=== PATIENT | female | born 1955 | race Caucasian/White ===

== ENCOUNTER 2020-09-03 12:49 | Emergency (ER) | payer MEDICARE, OTHER, SELFPAY ==
[2020-09-03] VITALS (12 sets, daily range): BP systolic 136–178; BP diastolic 61–81; PULSE 50–59; RESP 14–32; TEMP 36.5; O2SAT 96–100
--- NOTE | 2020-09-03 13:09 | DI.CT.S_ITS ---
PROCEDURE: CT HEAD/BRAIN WO CON INDICATIONS: dizziness w/o trauma or h/o vertigo TECHNIQUE: Noncontrast 4.5 mm thick angled axial sections acquired from the foramen magnum to the vertex, with coronal and sagittal reformats. For radiation dose reduction, the following was used: automated exposure control, adjustment of mA and/or kV according to patient size. COMPARISON: None. FINDINGS: Image quality: Excellent. CSF spaces: Basal cisterns are patent. No extra-axial fluid collections. The ventricles are symmetric in size and shape. Brain: No intracranial bleeds or masses. There is cerebral volume loss for age, with resultant ventricular and sulcal prominence. There are periventricular and deep white matter chronic small vessel ischemic changes. There is intracranial internal carotid artery atherosclerosis. Skull and face: Calvarium and visualized facial bones appear intact, without suspicious lesions. Sinuses: Visualized sinuses and mastoids are clear. IMPRESSION: Unremarkable CT head. No intracranial hemorrhage or mass effect. Dictated by: William Stewart M.D. on 09/03/2020 at 12:36 Approved by: William Stewart M.D. on 09/03/2020 at 12:45
[2020-09-03] MEDS: SODIUM CHLORIDE 0.9% 1,000 ML 150 ML IV (13:30)
[2020-09-03 13:37] LABS: Add Manual Diff / Slide Review NO; Basophils Absolute Auto 0 /uL (0-100); Basophils Percent Auto 0.6 % (0-2); Eosinophils Absolute Auto 100 /uL (0-450); Hematocrit 42.4 % (36-46); Hemoglobin 14.4 g/dL (12.0-16.0); Lymphocytes Absolute Auto 1800 /uL (1100-4500); Lymphocytes Percent Auto 27.8 % (25-40); Mean Corpuscular HGB Conc 33.9 % (30-36); Mean Corpuscular Hemoglobin 32.1 PG (26-34); Mean Corpuscular Volume 94.5 fL (80-100); Monocytes Absolute Auto 500 /uL (0-900); Monocytes Percent Auto 7.1 % (3-14); Neutrophils Absolute Auto 4100 /uL (1500-7000); Neutrophils Percent Auto 63.5 % (50-75); Platelet Count 244 X10^3/uL (150-400); Red Blood Cell Count 4.48 X10^6/uL (4.0-5.2); Red Cell Distribution Width 13.2 % (11.6-14.8); White Blood Cell Count 6.5 X10^3/uL (4.5-11.0)
[2020-09-03 13:50] LABS: Alanine Aminotransferase 27 IU/L (<35); Albumin 4.2 g/dL (3.5-5.0); Albumin Globulin Ratio 1.2 (1.0-2.8); Alkaline Phosphatase 97 U/L (38-126); Aspartate Aminotransferase 35 IU/L (14-36); Bilirubin Total 0.4 mg/dL (0.2-1.3); Blood Urea Nitrogen 16 mg/dL (7-17); Calcium 9.4 mg/dL (8.4-10.2); Carbon Dioxide 25 mmol/L (22-32); Chloride 106 mmol/L (98-107); Estimated Glomerular Filt Rate > 60.0 mL/min (>60); Globulin 3.4 g/dL (1.7-4.1); Glucose 133 mg/dL (80-110); HEMOLYSIS < 15 (0-50); Potassium 3.8 mmol/L (3.4-5.1); Sodium 138 mmol/L (137-145); Total Protein 7.6 g/dL (6.3-8.2)
[2020-09-03 14:01] LABS: Troponin I < 0.012 ng/mL (0.01-0.034)
[2020-09-03] MEDS: ONDANSETRON 4 MG/2 ML INJ IV (14:08)
[2020-09-03] MEDS: MECLIZINE HCL 12.5 MG TABLET 25 MG PO (15:30)
[2020-09-03] MEDS: KETOROLAC 30 MG/ML VIAL 15 MG IV (15:30)
--- NOTE | 2020-09-03 15:50 | ED_ITS ---
HPI - Dizziness General Chief Complaint: Dizziness Stated Complaint: really severe vertigo, nausea, back spasms Time Seen by Provider: 09/03/20 15:46 Source: patient Mode of arrival: Wheelchair Limitations: no limitations History of Present Illness HPI Narrative: This is a pleasant 65-year-old female who comes in with complaint of acute vertigo. Patient states she was sitting at her desk when she had a sudden onset of the room spinning, patient did have a headache but began having nausea and vomiting. She was able to get herself to the bathroom received consisted to have significant symptoms. Patient states that any sort of movement made it significantly worse. It has been slowly starting to decrease present but not nearly as intense. She denies any difficulty with speech, she denies any numbness, tingling or weakness of her extremities. She had had full movement and entire time. She denies any chest pain or pressure. While she was vomiting she started have spasm and pain in her lower back. This has also been improving. Patient does not have any loss of bowel or bladder control. She has had one prior episode in the past remotely. Patient states she does not take any medications regularly. Patient denies any allergies to medications Related Data Previous Rx's Medication Instructions Recorded meclizine 25 mg tablet 25 mg PO TID PRN #20 tab 09/03/20 ondansetron HCl 4 mg tablet 4 mg PO Q6H PRN #10 tab 09/03/20 (Zofran) Allergies Allergy/AdvReac Type Severity Reaction Status Date / Time No Known Drug Allergies Allergy Verified 09/03/20 14:30 Review of Systems Review of Systems ROS Unobtainable: All systems reviewed & are unremarkable except as noted in HPI and below Exam Narrative Exam Narrative: GEN: well nourished, well appearing female, alert and oriented x 3, patient appears to be in mild distress. HEENT: Atraumatic, pupils are equal round reactive to light, extraocular movements are intact, negative York[place]-Hallpike, no nystagmus appreciated, nares are clear, TMs are clear with no fluid, there is no conjunctival pallor. Throat is clear without any exudates, erythema, tonsillar enlargement or uvular deviation, no facial droop HEART: Regular rate and rhythm without murmur, clicks, rubs. LUNGS:Lungs clear to auscultation, no wheezes, rales, crackles, chest moves symmetrically ABD:bowel sounds normal, soft, non-tender, no guarding, rebound, rigidity, no masses noted, no hepatosplenomegaly MSCL: Non-tender, no muscle atrophy, muscles strength 5/5 upper and lower extremities, full range of motion, normal gait NEURO:CN 2-12 intact, sensation normal, reflexes 2/4 upper and lower extremitie s. finger nose finger test normal, heel thomas test normal SKIN: No rash or other skin changes. Initial Vital Signs Initial Vital Signs: Vital Signs Pulse Rate 57 L 09/03/20 13:19 Respiratory Rate 14 09/03/20 13:19 Pulse Oximetry 97 09/03/20 13:19 Scores NIH Stroke Scale Level of Conciousness: Alert, keenly responsive Ask month/age: Answers both questions correctly. Open/close eyes, close hand: Performs both tasks correctly Best gaze horizontal: Normal Visual trejo: No visual loss Facial palsy: Normal symetrical movement Left arm drift: No drift for full 10 sec Right arm drift: No drift for full 10 sec Left leg drift: No drift for full 5 sec Right leg drift: No drift for full 5 sec Limb ataxia: Absent Sensory on face/arms/legs: Normal, no sensory loss Best language: No aphasia, normal Dysarthria: Normal Extinction or inattention: No abnormality Total NIH Stroke scale score: 0 Course Orders Ordered: ED Orders 09/03/20 13:08 EKG-12 Lead Stat 09/03/20 13:09 CT head/brain wo con Stat 09/03/20 13:20 Complete Blood Count AUTO DIFF Stat Comprehensive Metabolic Panel Stat Troponin I Stat 09/03/20 14:33 EKG-12 Lead Stat Discontinued Medications Sodium Chloride (Normal Saline 0.9%) 1,000 mls @ 150 mls/hr IV CONT RAFIA Last Infusion: 09/03/20 16:25 Dose: 0 mls/hr Documented by: Admin: 09/03/20 13:30 Dose: 150 mls/hr Documented by: CHANO Ketorolac Tromethamine (Ketorolac 30 Mg/Ml Vial) 15 mg IV NOW ONE Stop: 09/03/20 15:15 Last Admin: 09/03/20 15:30 Dose: 15 mg Documented by: CHANO Meclizine HCl (Meclizine Hcl 12.5 Mg Tablet) 25 mg PO NOW ONE Stop: 09/03/20 15:26 Last Admin: 09/03/20 15:30 Dose: 25 mg Documented by: CHANO Ondansetron HCl (Ondansetron 4 Mg/2 Ml Inj) 4 mg IV NOW ONE Stop: 09/03/20 14:08 Last Admin: 09/03/20 14:08 Dose: 4 mg Documented by: CHANO Vital Signs Vital signs: Vital Signs - 8 hr 09/03/20 13:19 09/03/20 13:20 09/03/20 13:45 Temperature 97.7 F Pulse Rate 57 L 57 L 57 L Respiratory Rate 14 32 H Blood Pressure 178/81 H Pulse Oximetry 97 97 97 09/03/20 14:00 09/03/20 14:29 09/03/20 14:30 Temperature Pulse Rate 50 L 55 L 53 L Respiratory Rate 20 24 19 Blood Pressure 140/65 136/62 Pulse Oximetry 97 96 98 09/03/20 15:00 09/03/20 15:01 09/03/20 15:30 Temperature Pulse Rate 59 L 57 L 54 L Respiratory Rate 27 H 24 18 Blood Pressure 138/61 Pulse Oximetry 96 97 100 09/03/20 15:34 09/03/20 16:00 09/03/20 16:01 Temperature Pulse Rate 50 L 51 L 50 L Respiratory Rate 26 H 16 16 Blood Pressure 152/72 H 137/63 Pulse Oximetry 98 99 100 MDM - Dizziness Lab Data Result diagrams: 09/03/20 13:20 09/03/20 13:20 Labs: Lab Results 09/03/20 09/03/20 Range/Units 13:20 13:20 WBC 6.5 (4.5-11.0) X10^3/uL RBC 4.48 (4.0-5.2) X10^6/uL Hgb 14.4 (12.0-16.0) g/dL Hct 42.4 (36-46) % MCV 94.5 (80-100) fL MCH 32.1 (26-34) PG MCHC 33.9 (30-36) % RDW 13.2 (11.6-14.8) % Plt Count 244 (150-400) X10^3/uL Neut % (Auto) 63.5 (50-75) % Lymph % (Auto) 27.8 (25-40) % [place] % (Auto) 7.1 (3-14) % Eos % (Auto) 1.0 L (2-4) % Baso % (Auto) 0.6 (0-2) % Neut # (Auto) 4100 (9640-5287) /uL Lymph # (Auto) 1800 (5008-5538) /uL [place] # (Auto) 500 (0-900) /uL Eos # (Auto) 100 (0-450) /uL Baso # (Auto) 0 (0-100) /uL Sodium 138 (137-145) mmol/L Potassium 3.8 (3.4-5.1) mmol/L Chloride 106 (98-107) mmol/L Carbon Dioxide 25 (22-32) mmol/L BUN 16 (7-17) mg/dL Creatinine 0.64 (0.52-1.04) mg/dL Estimated GFR > 60.0 (>60) mL/min BUN/Creatinine Ratio 25.0 H (6-22) Glucose 133 H (80-110) mg/dL Calcium 9.4 (8.4-10.2) mg/dL Total Bilirubin 0.4 (0.2-1.3) mg/dL AST 35 (14-36) IU/L ALT 27 (<35) IU/L Alkaline Phosphatase 97 (38-126) U/L Troponin I < 0.012 (0.01-0.034) ng/mL Total Protein 7.6 (6.3-8.2) g/dL Albumin 4.2 (3.5-5.0) g/dL Globulin 3.4 (1.7-4.1) g/dL Albumin/Globulin Ratio 1.2 (1.0-2.8) Urine Dip Bedside Urine Glucose Negative Bedside Urine Bilirubin - Negative Bedside Urine Ketone +/- 5 Urine Specific [place] 1.015 Bedside Urine Occult Blood - Negative Bedside Urine pH 7.5 Bedside Urine Protein - Negative Bedside Urine Urobilinogen - Negative Bedside Urine Nitrite - Negative Bedside Urine Leukocytes - Negative Esterase Imaging Data CT scan - head: Radiologist's Impression: [address] [id number] Scan ReportSigned Patient: Felicia Lacy KMR#: [id number]: 4Acct:[id number]/Sex: 65 / FDate of Service: 09/03/20Loc: EDAccession Number: [id number] Procedure: CT head/brain wo con Ordering Provider: Peggy Ledbetter D.O. PROCEDURE: CT HEAD/BRAIN WO CON INDICATIONS: dizziness w/o trauma or h/o vertigo TECHNIQUE: Noncontrast 4.5 mm thick angled axial sections acquired from the foramen magnum to the vertex, with coronal and sagittal reformats. For radiation dose reduction, the following was used: automated exposure control, adjustment of mA and/or kV according to patient size. COMPARISON: None. FINDINGS: Image quality: Excellent. CSF spaces: Basal cisterns are patent. No extra-axial fluid collections. The ventricles are symmetric in size and shape. Brain: No intracranial bleeds or masses. There is cerebral volume loss for age, with resultant ventricular and sulcal prominence. There are periventricular and deep white matter chronic small vessel ischemic changes. There is intracranial internal carotid artery atherosclerosis. Skull and face: Calvarium and visualized facial bones appear intact, without suspicious lesions. Sinuses: Visualized sinuses and mastoids are clear. IMPRESSION: Unremarkable CT head. No intracranial hemorrhage or mass effect. Dictated by: William Stewart M.D. on 09/03/2020 at 12:36 Approved by: William Stewart M.D. on 09/03/2020 at 12:45 ECG Data Interpretation: Sinus bradycardia rate of 54 P are 200 QRS of 94 and QTC 402. And mildly negative no acute ischemic changes appreciated. EKG number2 shows sinus bradycardia rate of 52 P are 190 QRS of 96 and QTC 390. No acute ST changes appreciated. Patient has prior EKG which appears similar MDM Narrative Medical decision making narrative: Patient comes in with acute onset of vertigo symptoms which were unprovoked. Patient's NIH scale is negative, she has no acute neurologic changes. Negative for Yorklyn-Hallpike. Head CT is negative, labs show no acute changes. Patient has been improving here in the department she had some additional Zofran and meclizine in the department even though her symptoms are improving. She does have some worsening back pain that occurred while she was vomiting. This is also been improving here. Discharge Plan Departure Patient Disposition: Home Clinical Impression: Vertigo Instructions: DI for Vertigo Activity Restrictions/Additional Instructions: Follow-up with ENT if you continue to have persistent symptoms. If needed you can follow-up with primary care initially. I believe her having vertigo symptoms today, there are many causes of this but I am not finding any dangerous or emergent causes to be treated at this time. You may take Zofran 1 tablet every 6 hours as needed for nausea You may take meclizine 1-2 tablets every 8 hours as needed for vertigo symptoms. Sleep with your head slightly elevated. Prescription was sent to [facility] if you are having severe symptoms, unable to walk safely, severe headaches, new vision changes, numbness, weakness or difficulty with speech, persistent vomiting, passing out, new chest pain or shortness of breath or other new or concerning symptoms Prescriptions: New meclizine 25 mg tablet 25 mg PO TID PRN (Reason: vertigo) Qty: 20 RF: 0 ondansetron HCl [Zofran] 4 mg tablet 4 mg PO Q6H PRN (Reason: nausea and vomiting) Qty: 10 RF: 0 Referrals: Maciej Cardoza MD [Physician] -
== END 2020-09-03 16:26 | disposition home or self-care (01) ==
PROVIDERS: Emergency Provider Emergency Medicine
DX: R42 Dizziness and giddiness (principal); R11.2 Nausea with vomiting, unspecified; R00.1 Bradycardia, unspecified; M54.5 Low back pain
CPT/HCPCS: 36415; 70450; 80053; 81003; 84484; 85025; 93005; 96361; 96374; 96375; 99284; J1885; J2405

== ENCOUNTER 2022-06-22 16:00 | Outpatient (RCR) | payer MEDICARE, OTHER, SELFPAY ==
--- NOTE | 2022-01-09 15:23 | PT.OIE ---
Current Diagnoses Pain in left shoulder (01/09/22) Abnormal posture (01/09/22) Weakness (01/09/22) Visit Care Team Role Provider Type Rebeca Muñoz MD Attending Provider Non-Staff Family Provider Primary Care Provider Referring Provider Specialty: Family Practice Address: [address] [place] [address], [id number] Email: Physical Therapy Initial Evaluation PT-OP-A Visit Information Start: 12/29/21 17:50 Freq: Status: Active Protocol: Document 01/09/22 14:37 [facility] (Rec: 01/09/22 15:25 [facility] [id number]) Out-Patient Physical Therapy Visit Information Visit Information Visit Type Initial Evaluation Visit Note 03/14 Visit Start Time 14:36 Visit Stop Time 15:21 Total Visit Minutes 45 Visit Number 1 Number of CHIEF TECHNOLOGIST Visits 0 PT-OP-B Current Condition Start: 12/29/21 17:50 Freq: Status: Active Protocol: Document 01/09/22 14:37 [facility] (Rec: 01/09/22 15:25 [facility] [id number]) Current Condition History of Current Condition Onset Date off/on for few years w/ worsening in last 6 months Current Complaints L shoulder pain History of Current Condition 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 L shoulder has a lot of the similar pains, but doesn't have a specific injury to L. It is not as severe as R side. She has led an active lifestyle so unsure if something is what hurt it. Pt reports her OT at [facility] recommended her to see this specific PT. L shoulder comes and goes and she feels it the most around a point in L biceps region. Pt reprots even sometimes just laying there 2 weeks ago, she had pain. this summer, she couldn't set up her tent. She can improve ability to abd if she presses on it to get more ROM. In the last 2 weeks, she has been doing okay but in the past, it will go up into her neck and she will have pain in neck and all the way down the arm to In the last couple weeks, she has been sedentary and it has gotten better. R shoulder healed well after surgery. Treatment Goals Patient/Caregiver Goals dec pain PT-OP-C Subjective Start: 12/29/21 17:50 Freq: Status: Active Protocol: Document 01/09/22 14:37 [facility] (Rec: 01/09/22 15:25 [facility] [id number]) Patient Questionnaires Quick Dash- Upper Extremity Quick Dash UE Score 45.45 OP-PT Pain Assessment Location L arm Pain Location Details L mid brachium Scale Used worst 8/10 Description Aching,With Movement Frequency Frequent Variations/Patterns can radiate up into neck then down around elbow lat and ant brachium Pain Aggravating Factors Lifting Other Pain Aggravating Factors overhead activity, paddling, sleep on that side Pain Alleviating Factors Inactivity PT-OP-F Manual Assessment Start: 12/29/21 17:50 Freq: Status: Active Protocol: Document 01/09/22 14:37 [facility] (Rec: 01/09/22 15:25 [facility] [id number]) Manual Assessments Soft Tissue Assessment Soft Tissue Mobility Assessment tenderness throughout L UT, LS , infrspinatus, biceps, pec, scalenes PT-OP-J Posture/Palpation/Skin Start: 12/29/21 17:50 Freq: Status: Active Protocol: Document 01/09/22 14:37 [facility] (Rec: 01/10/22 08:08 [facility] [id number]) Posture Evaluation Comments Posture Comments humerus fwd in glenoid. abd and IR of scap PT-OP-K Range of Motion Start: 12/29/21 17:50 Freq: Status: Active Protocol: Document 01/09/22 14:37 [facility] (Rec: 01/09/22 15:25 [facility] [id number]) Shoulder Goniometric Range of Motion Shoulder Right Active Flexion 160 Extension 72 Abduction 180 External Rotation at 0 degrees Abduction 62 Internal Rotation Behind Back (text) T5 Left Active Flexion 110 Extension 55 Abduction 85 External Rotation at 0 degrees Abduction 54 Internal Rotation Behind Back (text) T10 PT-OP-L Special Tests Start: 12/29/21 17:50 Freq: Status: Active Protocol: Document 01/09/22 14:37 [facility] (Rec: 01/09/22 15:25 [facility] [id number]) Special Tests Shoulder Special Tests Ogle Test Test Results neg L Lopez Sunny Impingement Test Results poistive L Neer Impingement Test Results neg L Empty Can Test Results positive L Speed's Biceps Test Results positive Neural Special Tests- Upper Body Radial Nerve Tension Test Results neg Ulnar Nerve Tension Test Results neg Median Nerve Tension Test Results positive L PT-OP-M Strength Start: 12/29/21 17:50 Freq: Status: Active Protocol: Document 01/09/22 14:37 [facility] (Rec: 01/09/22 15:25 [facility] [id number]) Shoulder Strength Shoulder Manual Muscle Testing Right Flexion 5 Normal Extension 5 Normal Abduction (C5) 5 Normal External Rotation 5 Normal Internal Rotation 5 Normal Left Flexion 3+ Fair+ Extension 4- Good- Abduction (C5) 3- Fair- External Rotation 3 Fair Internal Rotation 4- Good- PT-OP-Q Treatments Start: 12/29/21 17:50 Freq: Status: Active Protocol: Document 01/09/22 14:37 [facility] (Rec: 01/10/22 08:08 [facility] [id number]) Self-Care/Home Management Treatment Education Other Education edu re: shoulder anatomy w/use of model and pictures. Edu of mult joints and discussed how supraspinatus tendon issues can happen w/improper mechanics. PT-OP-T Assessment and Plan Start: 12/29/21 17:50 Freq: Status: Active Protocol: Document 01/09/22 14:37 [facility] (Rec: 01/09/22 15:25 [facility] [id number]) Physical Therapy Assessment Rehab Potential Rehabilitation Potential Good Evaluation Complexity Number of Personal Factors/Comorbidities 3 or More Number of Body Systems Impaired 4 or More Clinical Presentation at Evaluation Evolving Impairments Impairments Activity Tolerance,Functional Activities,Functional Mobility ,Pain,Posture,ROM,Soft Tissue Mobility,Strength Goals activities Short Term Goal (STG) Pt will be able to sleep on L side w/o inc pain STG Duration 03/05/22 Health Education Specialist Goal (LTG) Pt will be able to lift and do activities of force through LUE to allow her to do rec activities like paddling and work around home. LTG Duration 04/03/22 ROM Short Term Goal (STG) Pt will improve flex and abd by at least 15 deg each on L shoulder STG Duration 02/21/22 Health Education Specialist Goal (LTG) Pt will have full L shoulder ROM as compared to R w/o pain to allow pt to do all overhead tasks at home LTG Duration 04/03/22 strength Short Term Goal (STG) Pt will be indep w/HEP STG Duration 02/26/22 Penitentiary Goal (LTG) Pt will score at least 3/5 on EFT and 5/5 on MMT to LUE without inc pain to show improved strength and allow pt to return to her typical active lifestyle w/o inc pain. LTG Duration 04/03/22 Quick Dash Impairment 45.45 Short Term Goal (STG) Pt will improve Quick Dash score to at least 32 to show improved functional ability. STG Duration 02/26/22 Penitentiary Goal (LTG) Pt will improve Quick Dash score to at least 5 to show improved functional ability. LTG Duration 04/03/22 Assessment Summary Assessment Pt presents w/ pain in L brachium that started a couple years ago w/pain that was on/ off but worsened this summer to the point she couldn't lift her arm all the way. she has had an US performed taht showed a partial supraspinatus tear at this time. She is doing better recently but has been sedentary and not doing her typical active lifestyle. She has limited overhead mobility and pain w/overhead activities at this time so has been avoiding them. Pt appears to have impingement that has liekly led to gradual mild tearing that was found in the [place]. She also has notable positive median nerve tension test which likely contributes to the pain down her arm. She would bneefit from skilled PT to address these deficits and return her to her active lifestyle w/o pain. Physical Therapy Plan Frequency and Duration Frequency of Treatment 1-2x/week Duration of treatment (weeks) 12 Plan of Care Start Date 01/09/22 Plan of Care End Date 04/03/22 Therapeutic Interventions Therapeutic Interventions Home Exercise Program,Joint Mobilizations,Manual Therapy, Neuromuscular Re-education, Orthotic/Prosthetic Management ,Patient/Caregiver Education, Self-Care/Home Management,Soft Tissue Mobilization,Taping, Therapeutic Activities, Therapeutic Exercises Modalities Cold Pack/Ice Massage,Electric Stimulation,Hot Packs, Infrared Therapy,Ultrasound Next Visit Focus/Plan Next Note Type Treatment Note Next Visit Plan rows, ER, wall posture, IR, AAROM flex & abd for HEP; manual for proper joint mechanics.
--- NOTE | 2022-01-09 15:23 | PT.OPPOC ---
Physical, Occupational & Speech Therapy At [facility] Current Diagnoses Pain in left shoulder (01/09/22) Abnormal posture (01/09/22) Weakness (01/09/22) Visit Care Team Role Provider Type Rebeca Muñoz MD Attending Provider Non-Staff Family Provider Primary Care Provider Referring Provider Specialty: Family Practice Address: [address] [place] [address], [facility] Email: Plan Of Care PT-OP-T Assessment and Plan Start: 12/29/21 17:50 Freq: Status: Active Protocol: Document 01/09/22 14:37 [facility] (Rec: 01/09/22 15:25 [facility] [id number]) Physical Therapy Assessment Rehab Potential Rehabilitation Potential Good Evaluation Complexity Number of Personal Factors/Comorbidities 3 or More Number of Body Systems Impaired 4 or More Clinical Presentation at Evaluation Evolving Impairments Impairments Activity Tolerance,Functional Activities,Functional Mobility ,Pain,Posture,ROM,Soft Tissue Mobility,Strength Goals activities Short Term Goal (STG) Pt will be able to sleep on L side w/o inc pain STG Duration 03/05/22 Snf Goal (LTG) Pt will be able to lift and do activities of force through LUE to allow her to do rec activities like paddling and work around home. LTG Duration 04/03/22 ROM Short Term Goal (STG) Pt will improve flex and abd by at least 15 deg each on L shoulder STG Duration 02/21/22 Sap Grc Security Goal (LTG) Pt will have full L shoulder ROM as compared to R w/o pain to allow pt to do all overhead tasks at home LTG Duration 04/03/22 strength Short Term Goal (STG) Pt will be indep w/HEP STG Duration 02/26/22 Snf Goal (LTG) Pt will score at least 3/5 on EFT and 5/5 on MMT to LUE without inc pain to show improved strength and allow pt to return to her typical active lifestyle w/o inc pain. LTG Duration 04/03/22 Quick Dash Impairment 45.45 Short Term Goal (STG) Pt will improve Quick Dash score to at least 32 to show improved functional ability. STG Duration 12/25/22 Sap Grc Security Goal (LTG) Pt will improve Quick Dash score to at least 5 to show improved functional ability. LTG Duration 04/03/22 Assessment Summary Assessment Pt presents w/ pain in L brachium that started a couple years ago w/pain that was on/ off but worsened this summer to the point she couldn't lift her arm all the way. she has had an US performed taht showed a partial supraspinatus tear at this time. She is doing better recently but has been sedentary and not doing her typical active lifestyle. She has limited overhead mobility and pain w/overhead activities at this time so has been avoiding them. Pt appears to have impingement that has liekly led to gradual mild tearing that was found in the [place]. She also has notable positive median nerve tension test which likely contributes to the pain down her arm. She would bneefit from skilled PT to address these deficits and return her to her active lifestyle w/o pain. Physical Therapy Plan Frequency and Duration Frequency of Treatment 1-2x/week Duration of treatment (weeks) 12 Plan of Care Start Date 01/09/22 Plan of Care End Date 04/03/22 Therapeutic Interventions Therapeutic Interventions Home Exercise Program,Joint Mobilizations,Manual Therapy, Neuromuscular Re-education, Orthotic/Prosthetic Management ,Patient/Caregiver Education, Self-Care/Home Management,Soft Tissue Mobilization,Taping, Therapeutic Activities, Therapeutic Exercises Modalities Cold Pack/Ice Massage,Electric Stimulation,Hot Packs, Infrared Therapy,Ultrasound Next Visit Focus/Plan Next Note Type Treatment Note Next Visit Plan rows, ER, wall posture, IR, AAROM flex & abd for HEP; manual for proper joint mechanics. Plan of Care Dates Plan of Care Start Date 01/09/22 Plan of Care End Date 04/03/22 Electronically Signed by: Diana Cardoza, PT 01/10/22 0923 If you are in agreement with this Plan of Care, please return a signed and dated copy. I have reviewed this Plan of Care and certify that the skilled therapy services above are required to meet the patient?s needs. Physician Signature Date Printed Name and Credentials Clinical Instructor Signature Printed Name and Credentials
--- NOTE | 2022-01-17 14:19 | PT.OTN ---
Current Diagnoses Pain in left shoulder (01/17/22) Abnormal posture (01/17/22) Weakness (01/17/22) Physical Therapy Treatment Note PT-OP-A Visit Information Start: 12/29/21 17:50 Freq: Status: Active Protocol: Document 01/17/22 13:00 [facility] (Rec: 01/17/22 14:19 [facility] [id number]) Out-Patient Physical Therapy Visit Information Visit Information Visit Type Treatment Note Visit Note 04/14 Visit Start Time 13:00 Visit Stop Time 13:45 Total Visit Minutes 45 Visit Number 2 Number of SALES AND MARKETING INTERN Visits 0 PT-OP-B Current Condition Start: 12/29/21 17:50 Freq: Status: Active Protocol: Document 01/09/22 14:37 [facility] (Rec: 01/09/22 15:25 [facility] [id number]) Current Condition History of Current Condition Onset Date off/on for few years w/ worsening in last 6 months Current Complaints L shoulder pain History of Current Condition 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 L shoulder has a lot of the similar pains, but doesn't have a specific injury to L. It is not as severe as R side. She has led an active lifestyle so unsure if something is what hurt it. Pt reports her OT at [facility] recommended her to see this specific PT. L shoulder comes and goes and she feels it the most around a point in L biceps region. Pt reprots even sometimes just laying there 2 weeks ago, she had pain. this summer, she couldn't set up her tent. She can improve ability to abd if she presses on it to get more ROM. In the last 2 weeks, she has been doing okay but in the past, it will go up into her neck and she will have pain in neck and all the way down the arm to In the last couple weeks, she has been sedentary and it has gotten better. R shoulder healed well after surgery. Treatment Goals Patient/Caregiver Goals dec pain PT-OP-C Subjective Start: 12/29/21 17:50 Freq: Status: Active Protocol: Document 01/17/22 13:00 [facility] (Rec: 01/17/22 14:19 [facility] [id number]) OP-PT Subjective Patient Comments Patient Comments Pt excited she got in 2x this week PT-OP-F Manual Assessment Start: 12/29/21 17:50 Freq: Status: Active Protocol: Document 01/09/22 14:37 [facility] (Rec: 01/09/22 15:25 [facility] [id number]) Manual Assessments Soft Tissue Assessment Soft Tissue Mobility Assessment tenderness throughout L UT, LS , infrspinatus, biceps, pec, scalenes PT-OP-J Posture/Palpation/Skin Start: 12/29/21 17:50 Freq: Status: Active Protocol: Document 01/09/22 14:37 [facility] (Rec: 01/10/22 08:08 [facility] [id number]) Posture Evaluation Comments Posture Comments humerus fwd in glenoid. abd and IR of scap PT-OP-K Range of Motion Start: 12/29/21 17:50 Freq: Status: Active Protocol: Document 01/09/22 14:37 [facility] (Rec: 01/09/22 15:25 [facility] [id number]) Shoulder Goniometric Range of Motion Shoulder Right Active Flexion 160 Extension 72 Abduction 180 External Rotation at 0 degrees Abduction 62 Internal Rotation Behind Back (text) T5 Left Active Flexion 110 Extension 55 Abduction 85 External Rotation at 0 degrees Abduction 54 Internal Rotation Behind Back (text) T10 PT-OP-L Special Tests Start: 12/29/21 17:50 Freq: Status: Active Protocol: Document 01/09/22 14:37 [facility] (Rec: 01/09/22 15:25 [facility] [id number]) Special Tests Shoulder Special Tests [place] Test Test Results neg L Lopez Sunny Impingement Test Results poistive L Neer Impingement Test Results neg L Empty Can Test Results positive L Speed's Biceps Test Results positive Neural Special Tests- Upper Body Radial Nerve Tension Test Results neg Ulnar Nerve Tension Test Results neg Median Nerve Tension Test Results positive L PT-OP-M Strength Start: 12/29/21 17:50 Freq: Status: Active Protocol: Document 01/09/22 14:37 [facility] (Rec: 01/09/22 15:25 [facility] [id number]) Shoulder Strength Shoulder Manual Muscle Testing Right Flexion 5 Normal Extension 5 Normal Abduction (C5) 5 Normal External Rotation 5 Normal Internal Rotation 5 Normal Left Flexion 3+ Fair+ Extension 4- Good- Abduction (C5) 3- Fair- External Rotation 3 Fair Internal Rotation 4- Good- PT-OP-Q Treatments Start: 12/29/21 17:50 Freq: Status: Active Protocol: Document 01/17/22 13:00 [facility] (Rec: 01/17/22 14:19 [facility] [id number]) Therapeutic Exercises Standing Exercises ER Side bilateral Equipment Used L1 Reps/Minutes 15 IR Side left Equipment Used L1 Reps/Minutes 15 wall posture Standing Exercise Name w/B UE ext Side bilateral Reps/Minutes 1 min hold AAROM Standing Exercise Name 1. flex 2. abd Side left Equipment Used bar Reps/Minutes 10 ea row Side bilateral Equipment Used L1 Reps/Minutes 15 Comments cues for scap Manual Therapy Treatment Soft Tissue Mobilization superior Body Location L UT/LS Mobilization Type Rolling,Strumming Intensity/Depth Moderate Body Position Sidelying post Body Location L lats & rhomboids Mobilization Type Rolling,Strumming Intensity/Depth Moderate Body Position Sidelying Joint Mobilizations GH Joint L Direction post FM AC Joint post scap L FM SC Joint inf L FM PT-OP-T Assessment and Plan Start: 12/29/21 17:50 Freq: Status: Active Protocol: Document 01/17/22 13:00 [facility] (Rec: 01/17/22 14:19 [facility] [id number]) Physical Therapy Assessment Goals activities Short Term Goal (STG) Pt will be able to sleep on L side w/o inc pain STG Duration 03/05/22 Retirement Goal (LTG) Pt will be able to lift and do activities of force through LUE to allow her to do rec activities like paddling and work around home. LTG Duration 04/03/22 ROM Short Term Goal (STG) Pt will improve flex and abd by at least 15 deg each on L shoulder STG Duration 02/21/22 Handle Machine Operator Goal (LTG) Pt will have full L shoulder ROM as compared to R w/o pain to allow pt to do all overhead tasks at home LTG Duration 04/03/22 strength Short Term Goal (STG) Pt will be indep w/HEP STG Duration 02/26/22 Handle Machine Operator Goal (LTG) Pt will score at least 3/5 on EFT and 5/5 on MMT to LUE without inc pain to show improved strength and allow pt to return to her typical active lifestyle w/o inc pain. LTG Duration 04/03/22 Quick Dash Impairment 45.45 Short Term Goal (STG) Pt will improve Quick Dash score to at least 32 to show improved functional ability. STG Duration 02/26/22 Handle Machine Operator Goal (LTG) Pt will improve Quick Dash score to at least 5 to show improved functional ability. LTG Duration 04/03/22 Assessment Summary Assessment Pt did well with exercises w/ cues and reminder to stay in comfortable range. She tolerated manual well and did have improved SC and scap mobility w/manual Physical Therapy Plan Frequency and Duration Frequency of Treatment 1-2x/week Duration of treatment (weeks) 12 Plan of Care Start Date 01/09/22 Plan of Care End Date 04/03/22 Next Visit Focus/Plan Next Note Type Treatment Note Next Visit Plan review exercises, manual for improved motion (GH)
--- NOTE | 2022-01-19 15:31 | PT.OTN ---
Current Diagnoses Pain in left shoulder (01/19/22) Abnormal posture (01/19/22) Weakness (01/19/22) Physical Therapy Treatment Note PT-OP-A Visit Information Start: 12/29/21 17:50 Freq: Status: Active Protocol: Document 01/19/22 13:47 [facility] (Rec: 01/19/22 15:30 [facility] [id number]) Out-Patient Physical Therapy Visit Information Visit Information Visit Type Treatment Note Visit Note 05/12 Visit Start Time 14:36 Visit Stop Time 15:30 Total Visit Minutes 44 Visit Number 3 Number of BOTTLING MACHINE OPERATOR Visits 0 PT-OP-B Current Condition Start: 12/29/21 17:50 Freq: Status: Active Protocol: Document 01/09/22 14:37 [facility] (Rec: 01/09/22 15:25 [facility] [id number]) Current Condition History of Current Condition Onset Date off/on for few years w/ worsening in last 6 months Current Complaints L shoulder pain History of Current Condition 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 L shoulder has a lot of the similar pains, but doesn't have a specific injury to L. It is not as severe as R side. She has led an active lifestyle so unsure if something is what hurt it. Pt reports her OT at [facility] recommended her to see this specific PT. L shoulder comes and goes and she feels it the most around a point in L biceps region. Pt reprots even sometimes just laying there 2 weeks ago, she had pain. this summer, she couldn't set up her tent. She can improve ability to abd if she presses on it to get more ROM. In the last 2 weeks, she has been doing okay but in the past, it will go up into her neck and she will have pain in neck and all the way down the arm to In the last couple weeks, she has been sedentary and it has gotten better. R shoulder healed well after surgery. Treatment Goals Patient/Caregiver Goals dec pain PT-OP-C Subjective Start: 12/29/21 17:50 Freq: Status: Active Protocol: Document 01/19/22 13:47 [facility] (Rec: 01/19/22 15:30 [facility] [id number]) OP-PT Subjective Patient Comments Patient Comments pt reports compliance w/HEP PT-OP-F Manual Assessment Start: 12/29/21 17:50 Freq: Status: Active Protocol: Document 01/09/22 14:37 [facility] (Rec: 01/09/22 15:25 [facility] [id number]) Manual Assessments Soft Tissue Assessment Soft Tissue Mobility Assessment tenderness throughout L UT, LS , infrspinatus, biceps, pec, scalenes PT-OP-J Posture/Palpation/Skin Start: 12/29/21 17:50 Freq: Status: Active Protocol: Document 01/09/22 14:37 [facility] (Rec: 01/10/22 08:08 [facility] [id number]) Posture Evaluation Comments Posture Comments humerus fwd in glenoid. abd and IR of scap PT-OP-K Range of Motion Start: 12/29/21 17:50 Freq: Status: Active Protocol: Document 01/09/22 14:37 [facility] (Rec: 01/09/22 15:25 [facility] [id number]) Shoulder Goniometric Range of Motion Shoulder Right Active Flexion 160 Extension 72 Abduction 180 External Rotation at 0 degrees Abduction 62 Internal Rotation Behind Back (text) T5 Left Active Flexion 110 Extension 55 Abduction 85 External Rotation at 0 degrees Abduction 54 Internal Rotation Behind Back (text) T10 PT-OP-L Special Tests Start: 12/29/21 17:50 Freq: Status: Active Protocol: Document 01/09/22 14:37 [facility] (Rec: 01/09/22 15:25 [facility] [id number]) Special Tests Shoulder Special Tests [place] Test Test Results neg L Lopez Sunny Impingement Test Results poistive L Neer Impingement Test Results neg L Empty Can Test Results positive L Speed's Biceps Test Results positive Neural Special Tests- Upper Body Radial Nerve Tension Test Results neg Ulnar Nerve Tension Test Results neg Median Nerve Tension Test Results positive L PT-OP-M Strength Start: 12/29/21 17:50 Freq: Status: Active Protocol: Document 01/09/22 14:37 [facility] (Rec: 01/09/22 15:25 [facility] [id number]) Shoulder Strength Shoulder Manual Muscle Testing Right Flexion 5 Normal Extension 5 Normal Abduction (C5) 5 Normal External Rotation 5 Normal Internal Rotation 5 Normal Left Flexion 3+ Fair+ Extension 4- Good- Abduction (C5) 3- Fair- External Rotation 3 Fair Internal Rotation 4- Good- PT-OP-Q Treatments Start: 12/29/21 17:50 Freq: Status: Active Protocol: Document 01/19/22 13:47 [facility] (Rec: 01/19/22 15:30 [facility] [id number]) Therapeutic Exercises Standing Exercises ER Side bilateral Equipment Used L2 Reps/Minutes 10 IR Side left Equipment Used L2 Reps/Minutes 10 wall posture Standing Exercise Name w/B UE ext Side bilateral Reps/Minutes 1 min hold Comments extra time for set u[ AAROM Standing Exercise Name 1. flex 2. abd Side left Equipment Used bar Reps/Minutes 5 row Side bilateral Equipment Used L2 Reps/Minutes 6 Comments cues for scap Manual Therapy Treatment Soft Tissue Mobilization pec Body Location R Mobilization Type Sustained Pressure Comments w/ER Joint Mobilizations GH Joint L Direction post gldie & translation, gapping, inf & distraction FM Comments w/neuro re edu into posiitons manual faciliated PT-OP-T Assessment and Plan Start: 12/29/21 17:50 Freq: Status: Active Protocol: Document 01/19/22 13:47 [facility] (Rec: 01/19/22 15:30 [facility] [id number]) Physical Therapy Assessment Goals activities Short Term Goal (STG) Pt will be able to sleep on L side w/o inc pain STG Duration 03/05/22 National Account Director Goal (LTG) Pt will be able to lift and do activities of force through LUE to allow her to do rec activities like paddling and work around home. LTG Duration 04/03/22 ROM Short Term Goal (STG) Pt will improve flex and abd by at least 15 deg each on L shoulder STG Duration 02/21/22 Longterm Goal (LTG) Pt will have full L shoulder ROM as compared to R w/o pain to allow pt to do all overhead tasks at home LTG Duration 04/03/22 strength Short Term Goal (STG) Pt will be indep w/HEP STG Duration 02/26/22 National Account Director Goal (LTG) Pt will score at least 3/5 on EFT and 5/5 on MMT to LUE without inc pain to show improved strength and allow pt to return to her typical active lifestyle w/o inc pain. LTG Duration 04/03/22 Quick Dash Impairment 45.45 Short Term Goal (STG) Pt will improve Quick Dash score to at least 32 to show improved functional ability. STG Duration 02/26/22 National Account Director Goal (LTG) Pt will improve Quick Dash score to at least 5 to show improved functional ability. LTG Duration 04/03/22 Assessment Summary Assessment Pt did require cues with all but rowing exercise. She was able to do inc resistance w/o inc pain though. Improved IR PROM after manual treatment. Pt encouraged to ice at home Physical Therapy Plan Frequency and Duration Frequency of Treatment 1-2x/week Duration of treatment (weeks) 12 Plan of Care Start Date 01/09/22 Plan of Care End Date 04/03/22 Next Visit Focus/Plan Next Note Type Treatment Note Next Visit Plan review exercises, manual for improved motion (GH)
--- NOTE | 2022-01-23 11:22 | PT.OTN ---
Current Diagnoses Pain in left shoulder (01/23/22) Abnormal posture (01/23/22) Weakness (01/23/22) Physical Therapy Treatment Note PT-OP-A Visit Information Start: 12/29/21 17:50 Freq: Status: Active Protocol: Document 01/23/22 10:36 [facility] (Rec: 01/23/22 11:22 [facility] [id number]) Out-Patient Physical Therapy Visit Information Visit Information Visit Type Treatment Note Visit Note 06/12 Visit Start Time 10:37 Visit Stop Time 11:27 Total Visit Minutes 50 Visit Number 4 Number of DIAMOND ASSORTER Visits 0 PT-OP-B Current Condition Start: 12/29/21 17:50 Freq: Status: Active Protocol: Document 01/09/22 14:37 [facility] (Rec: 01/09/22 15:25 [facility] [id number]) Current Condition History of Current Condition Onset Date off/on for few years w/ worsening in last 6 months Current Complaints L shoulder pain History of Current Condition 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 L shoulder has a lot of the similar pains, but doesn't have a specific injury to L. It is not as severe as R side. She has led an active lifestyle so unsure if something is what hurt it. Pt reports her OT at [facility] recommended her to see this specific PT. L shoulder comes and goes and she feels it the most around a point in L biceps region. Pt reprots even sometimes just laying there 2 weeks ago, she had pain. this summer, she couldn't set up her tent. She can improve ability to abd if she presses on it to get more ROM. In the last 2 weeks, she has been doing okay but in the past, it will go up into her neck and she will have pain in neck and all the way down the arm to In the last couple weeks, she has been sedentary and it has gotten better. R shoulder healed well after surgery. Treatment Goals Patient/Caregiver Goals dec pain PT-OP-C Subjective Start: 12/29/21 17:50 Freq: Status: Active Protocol: Document 01/23/22 10:36 [facility] (Rec: 01/23/22 11:22 [facility] [id number]) OP-PT Subjective Patient Comments Patient Comments Pt reprots she feels like she will have to work on postural roll up PT-OP-F Manual Assessment Start: 12/29/21 17:50 Freq: Status: Active Protocol: Document 01/09/22 14:37 [facility] (Rec: 01/09/22 15:25 [facility] [id number]) Manual Assessments Soft Tissue Assessment Soft Tissue Mobility Assessment tenderness throughout L UT, LS , infrspinatus, biceps, pec, scalenes PT-OP-J Posture/Palpation/Skin Start: 12/29/21 17:50 Freq: Status: Active Protocol: Document 01/09/22 14:37 [facility] (Rec: 01/10/22 08:08 [facility] [id number]) Posture Evaluation Comments Posture Comments humerus fwd in glenoid. abd and IR of scap PT-OP-K Range of Motion Start: 12/29/21 17:50 Freq: Status: Active Protocol: Document 01/09/22 14:37 [facility] (Rec: 01/09/22 15:25 [facility] [id number]) Shoulder Goniometric Range of Motion Shoulder Right Active Flexion 160 Extension 72 Abduction 180 External Rotation at 0 degrees Abduction 62 Internal Rotation Behind Back (text) T5 Left Active Flexion 110 Extension 55 Abduction 85 External Rotation at 0 degrees Abduction 54 Internal Rotation Behind Back (text) T10 PT-OP-L Special Tests Start: 12/29/21 17:50 Freq: Status: Active Protocol: Document 01/09/22 14:37 [facility] (Rec: 01/09/22 15:25 [facility] [id number]) Special Tests Shoulder Special Tests [place] Test Test Results neg L Lopez Sunny Impingement Test Results poistive L Neer Impingement Test Results neg L Empty Can Test Results positive L Speed's Biceps Test Results positive Neural Special Tests- Upper Body Radial Nerve Tension Test Results neg Ulnar Nerve Tension Test Results neg Median Nerve Tension Test Results positive L PT-OP-M Strength Start: 12/29/21 17:50 Freq: Status: Active Protocol: Document 01/09/22 14:37 [facility] (Rec: 01/09/22 15:25 [facility] [id number]) Shoulder Strength Shoulder Manual Muscle Testing Right Flexion 5 Normal Extension 5 Normal Abduction (C5) 5 Normal External Rotation 5 Normal Internal Rotation 5 Normal Left Flexion 3+ Fair+ Extension 4- Good- Abduction (C5) 3- Fair- External Rotation 3 Fair Internal Rotation 4- Good- PT-OP-Q Treatments Start: 12/29/21 17:50 Freq: Status: Active Protocol: Document 01/23/22 10:36 [facility] (Rec: 01/23/22 11:22 [facility] [id number]) Manual Therapy Treatment Soft Tissue Mobilization pec Body Location R Mobilization Type Sustained Pressure Comments w/ER superior Body Location L UT/LS Mobilization Type Rolling,Strumming Intensity/Depth Moderate Body Position Sidelying post Body Location L lats & rhomboids Mobilization Type Rolling,Strumming Intensity/Depth Moderate Body Position Sidelying Joint Mobilizations GH Joint L Direction inf glide w/overhead motion AC Joint post scap L FM Comments w/overhead motion SC Joint inf L FM Comments w.overhead motion PT-OP-T Assessment and Plan Start: 12/29/21 17:50 Freq: Status: Active Protocol: Document 01/23/22 10:36 [facility] (Rec: 01/23/22 11:22 [facility] [id number]) Physical Therapy Assessment Goals activities Short Term Goal (STG) Pt will be able to sleep on L side w/o inc pain STG Duration 03/05/22 Deck Supervisor Goal (LTG) Pt will be able to lift and do activities of force through LUE to allow her to do rec activities like paddling and work around home. LTG Duration 04/03/22 ROM Short Term Goal (STG) Pt will improve flex and abd by at least 15 deg each on L shoulder STG Duration 02/21/22 Deck Supervisor Goal (LTG) Pt will have full L shoulder ROM as compared to R w/o pain to allow pt to do all overhead tasks at home LTG Duration 04/03/22 strength Short Term Goal (STG) Pt will be indep w/HEP STG Duration 02/26/22 Assisted Goal (LTG) Pt will score at least 3/5 on EFT and 5/5 on MMT to LUE without inc pain to show improved strength and allow pt to return to her typical active lifestyle w/o inc pain. LTG Duration 04/03/22 Quick Dash Impairment 45.45 Short Term Goal (STG) Pt will improve Quick Dash score to at least 32 to show improved functional ability. STG Duration 02/26/22 Deck Supervisor Goal (LTG) Pt will improve Quick Dash score to at least 5 to show improved functional ability. LTG Duration 04/03/22 Assessment Summary Assessment Improved overhead motion w/ Manual treatment today. Pt had a lot of tenderness along AC jt and pec and somet tenderness at GH when doing jt mobs at end ranges Physical Therapy Plan Frequency and Duration Frequency of Treatment 1-2x/week Duration of treatment (weeks) 12 Plan of Care Start Date 01/09/22 Plan of Care End Date 04/03/22 Next Visit Focus/Plan Next Note Type Treatment Note Next Visit Plan manual for improved motion ; start working on upper thoracic and rib mobility
--- NOTE | 2022-01-31 13:21 | PT.OTN ---
Current Diagnoses Pain in left shoulder (01/31/22) Abnormal posture (01/31/22) Weakness (01/31/22) Physical Therapy Treatment Note PT-OP-A Visit Information Start: 12/29/21 17:50 Freq: Status: Active Protocol: Document 01/31/22 09:49 [facility] (Rec: 01/31/22 13:20 [facility] [id number]) Out-Patient Physical Therapy Visit Information Visit Information Visit Type Treatment Note Visit Note 07/12 Visit Start Time 09:50 Visit Stop Time 10:40 Total Visit Minutes 50 Visit Number 5 Number of ROOM SERVICE ATTENDANT Visits 0 PT-OP-B Current Condition Start: 12/29/21 17:50 Freq: Status: Active Protocol: Document 01/09/22 14:37 [facility] (Rec: 01/09/22 15:25 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 L shoulder has a lot of the similar pains, but doesn't have a specific injury to L. It is not as severe as R side. She has led an active lifestyle so unsure if something is what hurt it. Pt reports her OT at [facility] recommended her to see this specific PT. L shoulder comes and goes and she feels it the most around a point in L biceps region. Pt reprots even sometimes just laying there 2 weeks ago, she had pain. this summer, she couldn't set up her tent. She can improve ability to abd if she presses on it to get more ROM. In the last 2 weeks, she has been doing okay but in the past, it will go up into her neck and she will have pain in neck and all the way down the arm to In the last couple weeks, she has been sedentary and it has gotten better. R shoulder healed well after surgery. Treatment Goals Patient/Caregiver Goals dec pain PT-OP-C Subjective Start: 12/29/21 17:50 Freq: Status: Active Protocol: Document 01/31/22 09:49 [facility] (Rec: 01/31/22 13:20 [facility] [id number]) OP-PT Subjective Patient Comments Patient Comments compliance w/exercises PT-OP-F Manual Assessment Start: 12/29/21 17:50 Freq: Status: Active Protocol: Document 01/09/22 14:37 [facility] (Rec: 01/09/22 15:25 [facility] [id number]) Manual Assessments Soft Tissue Assessment Soft Tissue Mobility Assessment tenderness throughout L UT, LS , infrspinatus, biceps, pec, scalenes PT-OP-J Posture/Palpation/Skin Start: 12/29/21 17:50 Freq: Status: Active Protocol: Document 01/09/22 14:37 [facility] (Rec: 01/10/22 08:08 [facility] [id number]) Posture Evaluation Comments Posture Comments humerus fwd in glenoid. abd and IR of scap PT-OP-K Range of Motion Start: 12/29/21 17:50 Freq: Status: Active Protocol: Document 01/09/22 14:37 [facility] (Rec: 01/09/22 15:25 [facility] [id number]) Shoulder Goniometric Range of Motion Shoulder Right Active Flexion 160 Extension 72 Abduction 180 External Rotation at 0 degrees Abduction 62 Internal Rotation Behind Back (text) T5 Left Active Flexion 110 Extension 55 Abduction 85 External Rotation at 0 degrees Abduction 54 Internal Rotation Behind Back (text) T10 PT-OP-L Special Tests Start: 12/29/21 17:50 Freq: Status: Active Protocol: Document 01/09/22 14:37 [facility] (Rec: 01/09/22 15:25 [facility] [id number]) Special Tests Shoulder Special Tests [place] Test Test Results neg L Lopez Sunny Impingement Test Results poistive L Neer Impingement Test Results neg L Empty Can Test Results positive L Speed's Biceps Test Results positive Neural Special Tests- Upper Body Radial Nerve Tension Test Results neg Ulnar Nerve Tension Test Results neg Median Nerve Tension Test Results positive L PT-OP-M Strength Start: 12/29/21 17:50 Freq: Status: Active Protocol: Document 01/09/22 14:37 [facility] (Rec: 01/09/22 15:25 [facility] [id number]) Shoulder Strength Shoulder Manual Muscle Testing Right Flexion 5 Normal Extension 5 Normal Abduction (C5) 5 Normal External Rotation 5 Normal Internal Rotation 5 Normal Left Flexion 3+ Fair+ Extension 4- Good- Abduction (C5) 3- Fair- External Rotation 3 Fair Internal Rotation 4- Good- PT-OP-Q Treatments Start: 12/29/21 17:50 Freq: Status: Active Protocol: Document 01/31/22 09:49 [facility] (Rec: 01/31/22 13:20 [facility] [id number]) Therapeutic Exercises Supine Exercises foam roll Supine Exercise Name B shoulder flex, Habd, abd Side bilateral Equipment Used yoga mat rolled and pillows under head Reps/Minutes 10 ea tspine ext Supine Exercise Name over rolled yoga mat Reps/Minutes 3 min Manual Therapy Treatment Soft Tissue Mobilization pec Body Location R Mobilization Type Sustained Pressure Comments w/abd superior Body Location L UT/LS Mobilization Type Rolling,Strumming Intensity/Depth Moderate Body Position Sidelying post Body Location L subscap Mobilization Type Sustained Pressure Intensity/Depth Moderate Body Position Supine Joint Mobilizations GH Joint L Direction inf glide w/overhead motion & post w/Hadd FM AC Joint post scap L FM Comments w/overhead motion SC Joint AP FM L PT-OP-R Modalities Start: 12/29/21 17:50 Freq: Status: Active Protocol: Document 01/31/22 09:49 [facility] (Rec: 01/31/22 13:21 [facility] [id number]) Hot Pack/Cold Pack Treatment Cold Pack Location L shoulder Patient Position Hooklying Treatment Duration (minutes) 10 PT-OP-T Assessment and Plan Start: 12/29/21 17:50 Freq: Status: Active Protocol: Document 01/31/22 09:49 [facility] (Rec: 01/31/22 13:20 [facility] [id number]) Physical Therapy Assessment Goals activities Short Term Goal (STG) Pt will be able to sleep on L side w/o inc pain STG Duration 03/05/22 Retirement Goal (LTG) Pt will be able to lift and do activities of force through LUE to allow her to do rec activities like paddling and work around home. LTG Duration 04/03/22 ROM Short Term Goal (STG) Pt will improve flex and abd by at least 15 deg each on L shoulder STG Duration 02/21/22 Retirement Goal (LTG) Pt will have full L shoulder ROM as compared to R w/o pain to allow pt to do all overhead tasks at home LTG Duration 04/03/22 strength Short Term Goal (STG) Pt will be indep w/HEP STG Duration 02/26/22 Retirement Goal (LTG) Pt will score at least 3/5 on EFT and 5/5 on MMT to LUE without inc pain to show improved strength and allow pt to return to her typical active lifestyle w/o inc pain. LTG Duration 04/03/22 Quick Dash Impairment 45.45 Short Term Goal (STG) Pt will improve Quick Dash score to at least 32 to show improved functional ability. STG Duration 02/26/22 Retirement Goal (LTG) Pt will improve Quick Dash score to at least 5 to show improved functional ability. LTG Duration 04/03/22 Assessment Summary Assessment Improved PROM to almost full ( lacking about 10 deg abd and flex) prior to pain. At start was painful w/IR, ER and abd at about 120 and flex about 140 deg. Physical Therapy Plan Frequency and Duration Frequency of Treatment 1-2x/week Duration of treatment (weeks) 12 Plan of Care Start Date 01/09/22 Plan of Care End Date 04/03/22 Next Visit Focus/Plan Next Note Type Treatment Note Next Visit Plan manual for improved motion ; start working on upper thoracic and rib mobility; review exercises from last session
--- NOTE | 2022-02-07 17:52 | PT.OTN ---
Current Diagnoses Pain in left shoulder (02/07/22) Abnormal posture (02/07/22) Weakness (02/07/22) Physical Therapy Treatment Note PT-OP-A Visit Information Start: 12/29/21 17:50 Freq: Status: Active Protocol: Document 02/07/22 13:47 [facility] (Rec: 02/07/22 17:51 [facility] [id number]) Out-Patient Physical Therapy Visit Information Visit Information Visit Type Treatment Note Visit Note 08/12 Visit Start Time 13:48 Visit Stop Time 14:30 Total Visit Minutes 52 Visit Number 6 Number of PAPER STRIPPER Visits 0 PT-OP-B Current Condition Start: 12/29/21 17:50 Freq: Status: Active Protocol: Document 01/09/22 14:37 [facility] (Rec: 01/09/22 15:25 [facility] [id number]) Current Condition History of Current Condition Onset Date off/on for few years w/ worsening in last 6 months Current Complaints L shoulder pain History of Current Condition 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 L shoulder has a lot of the similar pains, but doesn't have a specific injury to L. It is not as severe as R side. She has led an active lifestyle so unsure if something is what hurt it. Pt reports her OT at [facility] recommended her to see this specific PT. L shoulder comes and goes and she feels it the most around a point in L biceps region. Pt reprots even sometimes just laying there 2 weeks ago, she had pain. this summer, she couldn't set up her tent. She can improve ability to abd if she presses on it to get more ROM. In the last 2 weeks, she has been doing okay but in the past, it will go up into her neck and she will have pain in neck and all the way down the arm to In the last couple weeks, she has been sedentary and it has gotten better. R shoulder healed well after surgery. Treatment Goals Patient/Caregiver Goals dec pain PT-OP-C Subjective Start: 12/29/21 17:50 Freq: Status: Active Protocol: Document 02/07/22 13:47 [facility] (Rec: 02/07/22 17:51 [facility] [id number]) OP-PT Subjective Patient Comments Patient Comments Pt reports she is getting more overhead mobility Patient Reported Progress Improving PT-OP-F Manual Assessment Start: 12/29/21 17:50 Freq: Status: Active Protocol: Document 01/09/22 14:37 [facility] (Rec: 01/09/22 15:25 [facility] [id number]) Manual Assessments Soft Tissue Assessment Soft Tissue Mobility Assessment tenderness throughout L UT, LS , infrspinatus, biceps, pec, scalenes PT-OP-J Posture/Palpation/Skin Start: 12/29/21 17:50 Freq: Status: Active Protocol: Document 01/09/22 14:37 [facility] (Rec: 01/10/22 08:08 [facility] [id number]) Posture Evaluation Comments Posture Comments humerus fwd in glenoid. abd and IR of scap PT-OP-K Range of Motion Start: 12/29/21 17:50 Freq: Status: Active Protocol: Document 01/09/22 14:37 [facility] (Rec: 01/09/22 15:25 [facility] [id number]) Shoulder Goniometric Range of Motion Shoulder Right Active Flexion 160 Extension 72 Abduction 180 External Rotation at 0 degrees Abduction 62 Internal Rotation Behind Back (text) T5 Left Active Flexion 110 Extension 55 Abduction 85 External Rotation at 0 degrees Abduction 54 Internal Rotation Behind Back (text) T10 PT-OP-L Special Tests Start: 12/29/21 17:50 Freq: Status: Active Protocol: Document 01/09/22 14:37 [facility] (Rec: 01/09/22 15:25 [facility] [id number]) Special Tests Shoulder Special Tests [place] Test Test Results neg L Lopez Sunny Impingement Test Results poistive L Neer Impingement Test Results neg L Empty Can Test Results positive L Speed's Biceps Test Results positive Neural Special Tests- Upper Body Radial Nerve Tension Test Results neg Ulnar Nerve Tension Test Results neg Median Nerve Tension Test Results positive L PT-OP-M Strength Start: 12/29/21 17:50 Freq: Status: Active Protocol: Document 01/09/22 14:37 [facility] (Rec: 01/09/22 15:25 [facility] [id number]) Shoulder Strength Shoulder Manual Muscle Testing Right Flexion 5 Normal Extension 5 Normal Abduction (C5) 5 Normal External Rotation 5 Normal Internal Rotation 5 Normal Left Flexion 3+ Fair+ Extension 4- Good- Abduction (C5) 3- Fair- External Rotation 3 Fair Internal Rotation 4- Good- PT-OP-Q Treatments Start: 12/29/21 17:50 Freq: Status: Active Protocol: Document 02/07/22 13:47 [facility] (Rec: 02/07/22 17:51 [id number] Therapeutic Exercises Supine Exercises press Supine Exercise Name chest press to serratus punch Side left Equipment Used 2# Reps/Minutes 12 foam roll Supine Exercise Name B shoulder flex, Habd, abd Side bilateral Equipment Used yoga mat rolled and pillows under head Reps/Minutes 8 ea tspine ext Supine Exercise Name over rolled yoga mat Reps/Minutes 3 min Sidelying Exercises abd Side left Equipment Used 2# Reps/Minutes 2x10 Manual Therapy Treatment Soft Tissue Mobilization pec Body Location R pec & teres & lat Mobilization Type Sustained Pressure Comments w/abd & flex Joint Mobilizations GH Comments L post gldie & translation FM; supine & seated inf glide FM PT-OP-R Modalities Start: 12/29/21 17:50 Freq: Status: Active Protocol: Document 02/07/22 13:47 [facility] (Rec: 02/07/22 17:51 [id number]) Hot Pack/Cold Pack Treatment Cold Pack Location L shoulder Patient Position Hooklying Treatment Duration (minutes) 10 PT-OP-T Assessment and Plan Start: 12/29/21 17:50 Freq: Status: Active Protocol: Document 02/07/22 13:47 [facility] (Rec: 02/07/22 17:51 [id number]) Physical Therapy Assessment Goals activities Short Term Goal (STG) Pt will be able to sleep on L side w/o inc pain STG Duration 03/05/22 Telephone Service Representative Goal (LTG) Pt will be able to lift and do activities of force through LUE to allow her to do rec activities like paddling and work around home. LTG Duration 04/03/22 ROM Short Term Goal (STG) Pt will improve flex and abd by at least 15 deg each on L shoulder STG Duration 02/21/22 Mcc Goal (LTG) Pt will have full L shoulder ROM as compared to R w/o pain to allow pt to do all overhead tasks at home LTG Duration 04/03/22 strength Short Term Goal (STG) Pt will be indep w/HEP STG Duration 02/26/22 Mcc Goal (LTG) Pt will score at least 3/5 on EFT and 5/5 on MMT to LUE without inc pain to show improved strength and allow pt to return to her typical active lifestyle w/o inc pain. LTG Duration 04/03/22 Quick Dash Impairment 45.45 Short Term Goal (STG) Pt will improve Quick Dash score to at least 32 to show improved functional ability. STG Duration 02/26/22 Telephone Service Representative Goal (LTG) Pt will improve Quick Dash score to at least 5 to show improved functional ability. LTG Duration 04/03/22 Assessment Summary Assessment Pt has improved AROM overhead at this tiem but still wallace shave some painw /overhead mobility and dec stability. She did well with new exercsies today. Physical Therapy Plan Frequency and Duration Frequency of Treatment 1-2x/week Duration of treatment (weeks) 12 Plan of Care Start Date 01/09/22 Plan of Care End Date 04/03/22 Next Visit Focus/Plan Next Note Type Treatment Note Next Visit Plan manual for improved motion ; cont working on upper thoracic and rib mobility; review exercises from last session
--- NOTE | 2022-03-13 16:30 | PT.OTN ---
Current Diagnoses Pain in left shoulder (03/13/22) Abnormal posture (03/13/22) Weakness (03/13/22) Physical Therapy Treatment Note PT-OP-A Visit Information Start: 12/29/21 17:50 Freq: Status: Active Protocol: Document 03/13/22 13:50 [facility] (Rec: 03/13/22 16:30 [facility] [id number]) Out-Patient Physical Therapy Visit Information Visit Information Visit Type Progress Note Visit Note 03/14 Visit Start Time 13:47 Visit Stop Time 14:30 Total Visit Minutes 43 Visit Number 7 Number of CUFF SETTER LOCKSTITCH Visits 0 PT-OP-B Current Condition Start: 12/29/21 17:50 Freq: Status: Active Protocol: Document 01/09/22 14:37 [facility] (Rec: 01/09/22 15:25 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 L shoulder has a lot of the similar pains, but doesn't have a specific injury to L. It is not as severe as R side. She has led an active lifestyle so unsure if something is what hurt it. Pt reports her OT at [facility] recommended her to see this specific PT. L shoulder comes and goes and she feels it the most around a point in L biceps region. Pt reprots even sometimes just laying there 2 weeks ago, she had pain. this summer, she couldn't set up her tent. She can improve ability to abd if she presses on it to get more ROM. In the last 2 weeks, she has been doing okay but in the past, it will go up into her neck and she will have pain in neck and all the way down the arm to In the last couple weeks, she has been sedentary and it has gotten better. R shoulder healed well after surgery. Treatment Goals Patient/Caregiver Goals dec pain PT-OP-C Subjective Start: 12/29/21 17:50 Freq: Status: Active Protocol: Document 03/13/22 13:50 [facility] (Rec: 03/13/22 16:30 [facility] [id number]) OP-PT Subjective Patient Comments Patient Comments pt reprots being really sick for the last month so hasnt done too many exercises. NOtes ROM is better though PT-OP-F Manual Assessment Start: 12/29/21 17:50 Freq: Status: Active Protocol: Document 01/09/22 14:37 [facility] (Rec: 01/09/22 15:25 [facility] [id number]) Manual Assessments Soft Tissue Assessment Soft Tissue Mobility Assessment tenderness throughout L UT, LS , infrspinatus, biceps, pec, scalenes PT-OP-J Posture/Palpation/Skin Start: 12/29/21 17:50 Freq: Status: Active Protocol: Document 01/09/22 14:37 [facility] (Rec: 01/10/22 08:08 [facility] [id number]) Posture Evaluation Comments Posture Comments humerus fwd in glenoid. abd and IR of scap PT-OP-K Range of Motion Start: 12/29/21 17:50 Freq: Status: Active Protocol: Document 03/13/22 13:50 [facility] (Rec: 03/13/22 16:30 [facility] [id number]) Shoulder Goniometric Range of Motion Shoulder Right Active Flexion 160 Extension 72 Abduction 180 External Rotation at 0 degrees Abduction 62 Internal Rotation Behind Back (text) T5 Left Active Flexion 135 Extension 60 Abduction 141 External Rotation at 90 degrees 68 Abduction External Rotation at 0 degrees Abduction 70 Internal Rotation Behind Back (text) T6 PT-OP-L Special Tests Start: 12/29/21 17:50 Freq: Status: Active Protocol: Document 01/09/22 14:37 [facility] (Rec: 01/09/22 15:25 [facility] [id number]) Special Tests Shoulder Special Tests [place] Test Test Results neg L Lopez Sunny Impingement Test Results poistive L Neer Impingement Test Results neg L Empty Can Test Results positive L Speed's Biceps Test Results positive Neural Special Tests- Upper Body Radial Nerve Tension Test Results neg Ulnar Nerve Tension Test Results neg Median Nerve Tension Test Results positive L PT-OP-M Strength Start: 12/29/21 17:50 Freq: Status: Active Protocol: Document 03/13/22 13:50 [facility] (Rec: 03/13/22 16:30 [facility] [id number]) Shoulder Strength Shoulder Manual Muscle Testing Right Flexion 5 Normal Extension 5 Normal Abduction (C5) 5 Normal External Rotation 5 Normal Internal Rotation 5 Normal Left Flexion 4 Good Extension 4+ Good+ Abduction (C5) 4 Good External Rotation 4- Good- Internal Rotation 4+ Good+ PT-OP-Q Treatments Start: 12/29/21 17:50 Freq: Status: Active Protocol: Document 03/13/22 13:50 [facility] (Rec: 03/13/22 16:30 [facility] [id number]) Therapeutic Exercises Standing Exercises ER Side bilateral Equipment Used L2 Reps/Minutes 8 IR Side left Equipment Used L2 Reps/Minutes 8 wall posture Standing Exercise Name w/B UE ext Side bilateral Reps/Minutes 1 min hold Comments extra time for set up AAROM Standing Exercise Name 1. flex 2. abd Side left Equipment Used bar Reps/Minutes 5 row Side bilateral Equipment Used L2 Reps/Minutes 8 Comments cues for scap Manual Therapy Treatment Soft Tissue Mobilization lat Body Location L biceps,deltoid Mobilization Type Rolling,Strumming Intensity/Depth Moderate pec Body Location R pec & teres Mobilization Type Sustained Pressure Comments w/abd & flex Joint Mobilizations thoracic Comments T1-3 AP FM GH Comments L post glide & inf glide FM AC Joint post scap L FM Comments w/overhead motion PT-OP-R Modalities Start: 12/29/21 17:50 Freq: Status: Active Protocol: Document 02/07/22 13:47 [facility] (Rec: 02/07/22 17:51 [facility] [id number]) Hot Pack/Cold Pack Treatment Cold Pack Location L shoulder Patient Position Hooklying Treatment Duration (minutes) 10 PT-OP-T Assessment and Plan Start: 12/29/21 17:50 Freq: Status: Active Protocol: Document 03/13/22 13:50 [facility] (Rec: 03/13/22 16:30 [facility] [id number]) Physical Therapy Assessment Goals activities Short Term Goal (STG) Pt will be able to sleep on L side w/o inc pain STG Duration achieved 1 [employer] C[employer] Developer Goal (LTG) Pt will be able to lift and do activities of force through LUE to allow her to do rec activities like paddling and work around home. 1/9hasn't tried d/t being sick for past 1 month LTG Duration 3/4 ROM Short Term Goal (STG) Pt will improve flex and abd by at least 15 deg each on L shoulder STG Duration achieved 19 Detention Goal (LTG) Pt will have full L shoulder ROM as compared to R w/o pain to allow pt to do all overhead tasks at home 03/13-improved LTG Duration 3/4 strength Short Term Goal (STG) Pt will be indep w/HEP STG Duration achieved-advancinga s needed [employer] Crm Developer Goal (LTG) Pt will score at least 3/5 on EFT and 5/5 on MMT to LUE without inc pain to show improved strength and allow pt to return to her typical active lifestyle w/o inc pain. 03/13-improved LTG Duration 3/ Quick Dash Impairment 45.45 Short Term Goal (STG) Pt will improve Quick Dash score to at least 32 to show improved functional ability. STG Duration achieved to 25 03/13 Detention Goal (LTG) Pt will improve Quick Dash score to at least 5 to show improved functional ability. 03/13- LTG Duration 3/4 Assessment Summary Assessment Pt did well with exercises today when reviewed and requried only min cueing. She had improved ROM and strength overall.S he would benefit from cont skilled PT. Physical Therapy Plan Frequency and Duration Frequency of Treatment 1-2x/week Duration of treatment (weeks) 8 Plan of Care Start Date 03/13/22 Plan of Care End Date 05/06/22 Therapeutic Interventions Therapeutic Interventions Home Exercise Program,Joint Mobilizations,Manual Therapy, Neuromuscular Re-education, Orthotic/Prosthetic Management ,Patient/Caregiver Education, Self-Care/Home Management,Soft Tissue Mobilization,Taping, Therapeutic Activities, Therapeutic Exercises Modalities Cold Pack/Ice Massage,Electric Stimulation,Hot Packs, Infrared Therapy,Ultrasound Next Visit Focus/Plan Next Note Type Treatment Note Next Visit Plan manual for improved motion ; cont working on upper thoracic and rib mobility; review exercises from last session
--- NOTE | 2022-03-13 16:30 | PT.OPPOC ---
Physical, Occupational & Speech Therapy At [facility] Current Diagnoses Pain in left shoulder (03/13/22) Abnormal posture (03/13/22) Weakness (03/13/22) Visit Care Team Role Provider Type Rebeca Muñoz MD Attending Provider Non-Staff Family Provider Primary Care Provider Referring Provider Specialty: Family Practice Address: [address] [place] [address], [facility] Email: Plan Of Care PT-OP-T Assessment and Plan Start: 12/29/21 17:50 Freq: Status: Active Protocol: Document 03/13/22 13:50 [facility] (Rec: 03/13/22 16:30 [facility] [id number]) Physical Therapy Assessment Goals activities Short Term Goal (STG) Pt will be able to sleep on L side w/o inc pain STG Duration achieved 03/13 Penitentiary Goal (LTG) Pt will be able to lift and do activities of force through LUE to allow her to do rec activities like paddling and work around home. asn't tried d/t being sick for past 1 month LTG Duration 3/4 ROM Short Term Goal (STG) Pt will improve flex and abd by at least 15 deg each on L shoulder STG Duration achieved 03/13 Penitentiary Goal (LTG) Pt will have full L shoulder ROM as compared to R w/o pain to allow pt to do all overhead tasks at home 03/13-improved LTG Duration 3/4 strength Short Term Goal (STG) Pt will be indep w/HEP STG Duration achieved-advancinga s needed Penitentiary Goal (LTG) Pt will score at least 3/5 on EFT and 5/5 on MMT to LUE without inc pain to show improved strength and allow pt to return to her typical active lifestyle w/o inc pain. 03/13-improved LTG Duration 3/4 Quick Dash Impairment 45.45 Short Term Goal (STG) Pt will improve Quick Dash score to at least 32 to show improved functional ability. STG Duration achieved to 25 03/13 Dog Food Dough Mixer Goal (LTG) Pt will improve Quick Dash score to at least 5 to show improved functional ability. 03/13-25 LTG Duration 3/4 Assessment Summary Assessment Pt did well with exercises today when reviewed and requried only min cueing. She had improved ROM and strength overall.S he would benefit from cont skilled PT. Physical Therapy Plan Frequency and Duration Frequency of Treatment 1-2x/week Duration of treatment (weeks) 8 Plan of Care Start Date 03/13/22 Plan of Care End Date 05/06/22 Therapeutic Interventions Therapeutic Interventions Home Exercise Program,Joint Mobilizations,Manual Therapy, Neuromuscular Re-education, Orthotic/Prosthetic Management ,Patient/Caregiver Education, Self-Care/Home Management,Soft Tissue Mobilization,Taping, Therapeutic Activities, Therapeutic Exercises Modalities Cold Pack/Ice Massage,Electric Stimulation,Hot Packs, Infrared Therapy,Ultrasound Next Visit Focus/Plan Next Note Type Treatment Note Next Visit Plan manual for improved motion ; cont working on upper thoracic and rib mobility; review exercises from last session Plan of Care Dates Plan of Care Start Date 03/13/22 Plan of Care End Date 05/06/22 Electronically Signed by: Diana Cardoza, PT 03/13/22 0673 If you are in agreement with this Plan of Care, please return a signed and dated copy. I have reviewed this Plan of Care and certify that the skilled therapy services above are required to meet the patient?s needs. Physician Signature Date Printed Name and Credentials Clinical Instructor Signature Printed Name and Credentials
--- NOTE | 2022-03-16 14:35 | PT.OTN ---
Current Diagnoses Pain in left shoulder (03/16/22) Abnormal posture (03/16/22) Weakness (03/16/22) Physical Therapy Treatment Note PT-OP-A Visit Information Start: 12/29/21 17:50 Freq: Status: Active Protocol: Document 03/16/22 13:26 [facility] (Rec: 03/16/22 14:35 [facility] [id number]) Out-Patient Physical Therapy Visit Information Visit Information Visit Type Treatment Note Visit Note 04/14 Visit Start Time 13:47 Visit Stop Time 14:30 Total Visit Minutes 43 Visit Number 8 Number of BACTERIOLOGY RESEARCH ASSISTANT Visits 0 PT-OP-B Current Condition Start: 12/29/21 17:50 Freq: Status: Active Protocol: Document 01/09/22 14:37 [facility] (Rec: 01/09/22 15:25 [facility] [id number]) Current Condition History of Current Condition Onset Date off/on for few years w/ worsening in last 6 months Current Complaints L shoulder pain History of Current Condition 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 L shoulder has a lot of the similar pains, but doesn't have a specific injury to L. It is not as severe as R side. She has led an active lifestyle so unsure if something is what hurt it. Pt reports her OT at [facility] recommended her to see this specific PT. L shoulder comes and goes and she feels it the most around a point in L biceps region. Pt reprots even sometimes just laying there 2 weeks ago, she had pain. this summer, she couldn't set up her tent. She can improve ability to abd if she presses on it to get more ROM. In the last 2 weeks, she has been doing okay but in the past, it will go up into her neck and she will have pain in neck and all the way down the arm to In the last couple weeks, she has been sedentary and it has gotten better. R shoulder healed well after surgery. Treatment Goals Patient/Caregiver Goals dec pain PT-OP-C Subjective Start: 12/29/21 17:50 Freq: Status: Active Protocol: Document 03/16/22 13:26 [facility] (Rec: 03/16/22 14:35 [facility] [id number]) OP-PT Subjective Patient Comments Patient Comments Pt thinks she knows what irritated her arm. She has caught herself leaning into her LUE w/scap rolled fwd and elevated PT-OP-F Manual Assessment Start: 12/29/21 17:50 Freq: Status: Active Protocol: Document 01/09/22 14:37 [facility] (Rec: 01/09/22 15:25 [facility] [id number]) Manual Assessments Soft Tissue Assessment Soft Tissue Mobility Assessment tenderness throughout L UT, LS , infrspinatus, biceps, pec, scalenes PT-OP-J Posture/Palpation/Skin Start: 12/29/21 17:50 Freq: Status: Active Protocol: Document 01/09/22 14:37 [facility] (Rec: 01/10/22 08:08 [facility] [id number]) Posture Evaluation Comments Posture Comments humerus fwd in glenoid. abd and IR of scap PT-OP-K Range of Motion Start: 12/29/21 17:50 Freq: Status: Active Protocol: Document 03/13/22 13:50 [facility] (Rec: 03/13/22 16:30 [facility] [id number]) Shoulder Goniometric Range of Motion Shoulder Right Active Flexion 160 Extension 72 Abduction 180 External Rotation at 0 degrees Abduction 62 Internal Rotation Behind Back (text) T5 Left Active Flexion 135 Extension 60 Abduction 141 External Rotation at 90 degrees 68 Abduction External Rotation at 0 degrees Abduction 70 Internal Rotation Behind Back (text) T6 PT-OP-L Special Tests Start: 12/29/21 17:50 Freq: Status: Active Protocol: Document 01/09/22 14:37 [facility] (Rec: 01/09/22 15:25 [facility] [id number]) Special Tests Shoulder Special Tests [place] Test Test Results neg L Lopez Sunny Impingement Test Results poistive L Neer Impingement Test Results neg L Empty Can Test Results positive L Speed's Biceps Test Results positive Neural Special Tests- Upper Body Radial Nerve Tension Test Results neg Ulnar Nerve Tension Test Results neg Median Nerve Tension Test Results positive L PT-OP-M Strength Start: 12/29/21 17:50 Freq: Status: Active Protocol: Document 03/13/22 13:50 [facility] (Rec: 03/13/22 16:30 [facility] [id number]) Shoulder Strength Shoulder Manual Muscle Testing Right Flexion 5 Normal Extension 5 Normal Abduction (C5) 5 Normal External Rotation 5 Normal Internal Rotation 5 Normal Left Flexion 4 Good Extension 4+ Good+ Abduction (C5) 4 Good External Rotation 4- Good- Internal Rotation 4+ Good+ PT-OP-Q Treatments Start: 12/29/21 17:50 Freq: Status: Active Protocol: Document 03/16/22 13:26 [facility] (Rec: 03/16/22 14:35 [facility] [id number]) Therapeutic Exercises Prone Exercises ER Prone Exercise Name 90/90 Side bilateral Equipment Used tball Reps/Minutes 8 kristine pose Side bilateral Reps/Minutes 30 sec scaption Prone Exercise Name over tball Side bilateral Reps/Minutes 10 habd Prone Exercise Name over tball Side bilateral Reps/Minutes 10 Sidelying Exercises open book Side bilateral Reps/Minutes 3 min abd Side left Equipment Used 2# Reps/Minutes 15 Manual Therapy Treatment Soft Tissue Mobilization lat Body Location L biceps,deltoid Mobilization Type Rolling,Strumming Intensity/Depth Moderate pec Body Location L pec Mobilization Type Sustained Pressure Comments w/abd & flex superior Body Location L UT & scalenes Mobilization Type Rolling,Strumming Intensity/Depth Moderate Body Position Sidelying post Body Location L subscap, teres, rhomboids, LS Mobilization Type Sustained Pressure Intensity/Depth Moderate Body Position Supine Joint Mobilizations rib Joint L first caudal FM GH Comments L post glide & inf glide FM AC Joint post scap L FM Comments w/overhead motion PT-OP-R Modalities Start: 12/29/21 17:50 Freq: Status: Active Protocol: Document 02/07/22 13:47 [facility] (Rec: 02/07/22 17:51 [facility] [id number]) Hot Pack/Cold Pack Treatment Cold Pack Location L shoulder Patient Position Hooklying Treatment Duration (minutes) 10 PT-OP-T Assessment and Plan Start: 12/29/21 17:50 Freq: Status: Active Protocol: Document 03/16/22 13:26 [facility] (Rec: 03/16/22 14:35 [facility] [id number]) Physical Therapy Assessment Goals activities Short Term Goal (STG) Pt will be able to sleep on L side w/o inc pain STG Duration achieved 19 Shelter Goal (LTG) Pt will be able to lift and do activities of force through LUE to allow her to do rec activities like paddling and work around home. 1/9hasn't tried d/t being sick for past 1 month LTG Duration 3/4 ROM Short Term Goal (STG) Pt will improve flex and abd by at least 15 deg each on L shoulder STG Duration achieved 03/13 Director Traffic And Planning Goal (LTG) Pt will have full L shoulder ROM as compared to R w/o pain to allow pt to do all overhead tasks at home 03/13-improved LTG Duration 3/4 strength Short Term Goal (STG) Pt will be indep w/HEP STG Duration achieved-advancinga s needed Director Traffic And Planning Goal (LTG) Pt will score at least 3/5 on EFT and 5/5 on MMT to LUE without inc pain to show improved strength and allow pt to return to her typical active lifestyle w/o inc pain. 03/13-improved LTG Duration 3/ Quick Dash Impairment 45.45 Short Term Goal (STG) Pt will improve Quick Dash score to at least 32 to show improved functional ability. STG Duration achieved to 25 03/13 Director Traffic And Planning Goal (LTG) Pt will improve Quick Dash score to at least 5 to show improved functional ability. 03/13-25 LTG Duration 3/ Assessment Summary Assessment Pt came in with full ROM except some mild tightness and some limit into w/ext. She improve doverhead motion and repoted dec feeling of tightness and had smoother movement after manual Physical Therapy Plan Frequency and Duration Frequency of Treatment 1-2x/week Duration of treatment (weeks) 8 Plan of Care Start Date 03/13/22 Plan of Care End Date 05/06/22 Next Visit Focus/Plan Next Note Type Treatment Note Next Visit Plan manual for improved motion ; cont working on upper thoracic and rib mobility
--- NOTE | 2022-03-20 14:40 | PT.OTN ---
Current Diagnoses Pain in left shoulder (03/20/22) Abnormal posture (03/20/22) Weakness (03/20/22) Physical Therapy Treatment Note PT-OP-A Visit Information Start: 12/29/21 17:50 Freq: Status: Active Protocol: Document 03/20/22 13:49 [facility] (Rec: 03/20/22 14:40 [facility] [id number]) Out-Patient Physical Therapy Visit Information Visit Information Visit Type Treatment Note Visit Note 05/12 Visit Start Time 13:50 Visit Stop Time 14:45 Total Visit Minutes 55 Visit Number 9 Number of CLINICAL LAB ASSISTANT Visits 0 PT-OP-B Current Condition Start: 12/29/21 17:50 Freq: Status: Active Protocol: Document 01/09/22 14:37 [facility] (Rec: 01/09/22 15:25 [facility] [id number]) Current Condition History of Current Condition Onset Date off/on for few years w/ worsening in last 6 months Current Complaints L shoulder pain History of Current Condition 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 L shoulder has a lot of the similar pains, but doesn't have a specific injury to L. It is not as severe as R side. She has led an active lifestyle so unsure if something is what hurt it. Pt reports her OT at [facility] recommended her to see this specific PT. L shoulder comes and goes and she feels it the most around a point in L biceps region. Pt reprots even sometimes just laying there 2 weeks ago, she had pain. this summer, she couldn't set up her tent. She can improve ability to abd if she presses on it to get more ROM. In the last 2 weeks, she has been doing okay but in the past, it will go up into her neck and she will have pain in neck and all the way down the arm to In the last couple weeks, she has been sedentary and it has gotten better. R shoulder healed well after surgery. Treatment Goals Patient/Caregiver Goals dec pain PT-OP-C Subjective Start: 12/29/21 17:50 Freq: Status: Active Protocol: Document 03/20/22 13:49 [facility] (Rec: 03/20/22 14:40 [facility] [id number]) OP-PT Subjective Patient Comments Patient Comments Pt reprots doing 30 min of yoga and it felt great PT-OP-F Manual Assessment Start: 12/29/21 17:50 Freq: Status: Active Protocol: Document 01/09/22 14:37 [facility] (Rec: 01/09/22 15:25 [facility] [id number]) Manual Assessments Soft Tissue Assessment Soft Tissue Mobility Assessment tenderness throughout L UT, LS , infrspinatus, biceps, pec, scalenes PT-OP-J Posture/Palpation/Skin Start: 12/29/21 17:50 Freq: Status: Active Protocol: Document 01/09/22 14:37 [facility] (Rec: 01/10/22 08:08 [facility] [id number]) Posture Evaluation Comments Posture Comments humerus fwd in glenoid. abd and IR of scap PT-OP-K Range of Motion Start: 12/29/21 17:50 Freq: Status: Active Protocol: Document 03/13/22 13:50 [facility] (Rec: 03/13/22 16:30 [facility] [id number]) Shoulder Goniometric Range of Motion Shoulder Right Active Flexion 160 Extension 72 Abduction 180 External Rotation at 0 degrees Abduction 62 Internal Rotation Behind Back (text) T5 Left Active Flexion 135 Extension 60 Abduction 141 External Rotation at 90 degrees 68 Abduction External Rotation at 0 degrees Abduction 70 Internal Rotation Behind Back (text) T6 PT-OP-L Special Tests Start: 12/29/21 17:50 Freq: Status: Active Protocol: Document 01/09/22 14:37 [facility] (Rec: 01/09/22 15:25 [facility] [id number]) Special Tests Shoulder Special Tests [place] Test Test Results neg L Lopez Sunny Impingement Test Results poistive L Neer Impingement Test Results neg L Empty Can Test Results positive L Speed's Biceps Test Results positive Neural Special Tests- Upper Body Radial Nerve Tension Test Results neg Ulnar Nerve Tension Test Results neg Median Nerve Tension Test Results positive L PT-OP-M Strength Start: 12/29/21 17:50 Freq: Status: Active Protocol: Document 03/13/22 13:50 [facility] (Rec: 03/13/22 16:30 [facility] [id number]) Shoulder Strength Shoulder Manual Muscle Testing Right Flexion 5 Normal Extension 5 Normal Abduction (C5) 5 Normal External Rotation 5 Normal Internal Rotation 5 Normal Left Flexion 4 Good Extension 4+ Good+ Abduction (C5) 4 Good External Rotation 4- Good- Internal Rotation 4+ Good+ PT-OP-Q Treatments Start: 12/29/21 17:50 Freq: Status: Active Protocol: Document 03/20/22 13:49 [facility] (Rec: 03/20/22 14:40 [facility] [id number]) Therapeutic Exercises Supine Exercises axial elongation Supine Exercise Name w/manual resistance at C4 &5 Side bilateral Reps/Minutes prolonged holds ea Prone Exercises ER Prone Exercise Name 90/90 Side bilateral Equipment Used tball Reps/Minutes 10 kristine pose Side bilateral Reps/Minutes 30 sec scaption Prone Exercise Name over tball Side bilateral Reps/Minutes 10 Comments palm down Manual Therapy Treatment Soft Tissue Mobilization median n path Body Location L w/glide Mobilization Type Rolling,Strumming,Sustained Pressure Intensity/Depth Moderate Body Position Supine superior Body Location L UT & scalenes & LS Mobilization Type Rolling,Strumming Intensity/Depth Moderate Body Position Sidelying Joint Mobilizations thoracic Comments T1&3 AP FM; transverse R T2-3 FM PT-OP-R Modalities Start: 12/29/21 17:50 Freq: Status: Active Protocol: Document 03/20/22 13:49 [facility] (Rec: 03/20/22 14:40 [id number] Hot Pack/Cold Pack Treatment Hot Pack Location L brachium Patient Position Hooklying Treatment Duration (minutes) 15 PT-OP-T Assessment and Plan Start: 12/29/21 17:50 Freq: Status: Active Protocol: Document 03/20/22 13:49 [facility] (Rec: 03/20/22 14:40 [facility] [id number]) Physical Therapy Assessment Goals activities Short Term Goal (STG) Pt will be able to sleep on L side w/o inc pain STG Duration achieved 03/13 Paring Machine Operator Goal (LTG) Pt will be able to lift and do activities of force through LUE to allow her to do rec activities like paddling and work around home. asn't tried d/t being sick for past 1 month LTG Duration 3/4 ROM Short Term Goal (STG) Pt will improve flex and abd by at least 15 deg each on L shoulder STG Duration achieved 03/13 Half-Way Goal (LTG) Pt will have full L shoulder ROM as compared to R w/o pain to allow pt to do all overhead tasks at home 03/13-improved LTG Duration 3/4 strength Short Term Goal (STG) Pt will be indep w/HEP STG Duration achieved-advancinga s needed Half-Way Goal (LTG) Pt will score at least 3/5 on EFT and 5/5 on MMT to LUE without inc pain to show improved strength and allow pt to return to her typical active lifestyle w/o inc pain. 03/13-improved LTG Duration 3/4 Quick Dash Impairment 45.45 Short Term Goal (STG) Pt will improve Quick Dash score to at least 32 to show improved functional ability. STG Duration achieved to 25 03/13 Half-Way Goal (LTG) Pt will improve Quick Dash score to at least 5 to show improved functional ability. 03/13-25 LTG Duration 3/4 Assessment Summary Assessment Improved abd and abiligyt to go through a median n glide after manual treatment. She also had improved PROM B cervical after manual and SB w /less discomofrt. She has significant cervical instabiltiy and tenderness which is likely affecting her pain. Physical Therapy Plan Frequency and Duration Frequency of Treatment 1-2x/week Duration of treatment (weeks) 8 Plan of Care Start Date 03/13/22 Plan of Care End Date 05/06/22 Next Visit Focus/Plan Next Note Type Treatment Note Next Visit Plan manual for improved motion ; cont working on upper thoracic and rib mobility
--- NOTE | 2022-03-23 18:02 | PT.OTN ---
Current Diagnoses Pain in left shoulder (03/23/22) Abnormal posture (03/23/22) Weakness (03/23/22) Physical Therapy Treatment Note PT-OP-A Visit Information Start: 12/29/21 17:50 Freq: Status: Active Protocol: Document 03/23/22 13:43 [facility] (Rec: 03/23/22 18:02 [facility] [id number]) Out-Patient Physical Therapy Visit Information Visit Information Visit Type Treatment Note Visit Note 06/12 Visit Start Time 13:46 Visit Stop Time 14:40 Total Visit Minutes 54 Visit Number 10 Number of CAFETERIA SUPERVISOR Visits 0 PT-OP-B Current Condition Start: 12/29/21 17:50 Freq: Status: Active Protocol: Document 01/09/22 14:37 [facility] (Rec: 01/09/22 15:25 [facility] [id number]) Current Condition History of Current Condition Onset Date off/on for few years w/ worsening in last 6 months Current Complaints L shoulder pain History of Current Condition 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 L shoulder has a lot of the similar pains, but doesn't have a specific injury to L. It is not as severe as R side. She has led an active lifestyle so unsure if something is what hurt it. Pt reports her OT at [facility] recommended her to see this specific PT. L shoulder comes and goes and she feels it the most around a point in L biceps region. Pt reprots even sometimes just laying there 2 weeks ago, she had pain. this summer, she couldn't set up her tent. She can improve ability to abd if she presses on it to get more ROM. In the last 2 weeks, she has been doing okay but in the past, it will go up into her neck and she will have pain in neck and all the way down the arm to In the last couple weeks, she has been sedentary and it has gotten better. R shoulder healed well after surgery. Treatment Goals Patient/Caregiver Goals dec pain PT-OP-C Subjective Start: 12/29/21 17:50 Freq: Status: Active Protocol: Document 03/23/22 13:43 [facility] (Rec: 03/23/22 18:02 [facility] [id number]) OP-PT Subjective Patient Comments Patient Comments pt reports she has done yoga consistantly and it is feeling good PT-OP-F Manual Assessment Start: 12/29/21 17:50 Freq: Status: Active Protocol: Document 01/09/22 14:37 [facility] (Rec: 01/09/22 15:25 [facility] [id number]) Manual Assessments Soft Tissue Assessment Soft Tissue Mobility Assessment tenderness throughout L UT, LS , infrspinatus, biceps, pec, scalenes PT-OP-J Posture/Palpation/Skin Start: 12/29/21 17:50 Freq: Status: Active Protocol: Document 01/09/22 14:37 [facility] (Rec: 01/10/22 08:08 [facility] [id number]) Posture Evaluation Comments Posture Comments humerus fwd in glenoid. abd and IR of scap PT-OP-K Range of Motion Start: 12/29/21 17:50 Freq: Status: Active Protocol: Document 03/13/22 13:50 [facility] (Rec: 03/13/22 16:30 [facility] [id number]) Shoulder Goniometric Range of Motion Shoulder Right Active Flexion 160 Extension 72 Abduction 180 External Rotation at 0 degrees Abduction 62 Internal Rotation Behind Back (text) T5 Left Active Flexion 135 Extension 60 Abduction 141 External Rotation at 90 degrees 68 Abduction External Rotation at 0 degrees Abduction 70 Internal Rotation Behind Back (text) T6 PT-OP-L Special Tests Start: 12/29/21 17:50 Freq: Status: Active Protocol: Document 01/09/22 14:37 [facility] (Rec: 01/09/22 15:25 [facility] [id number]) Special Tests Shoulder Special Tests [place] Test Test Results neg L Lopez Sunny Impingement Test Results poistive L Neer Impingement Test Results neg L Empty Can Test Results positive L Speed's Biceps Test Results positive Neural Special Tests- Upper Body Radial Nerve Tension Test Results neg Ulnar Nerve Tension Test Results neg Median Nerve Tension Test Results positive L PT-OP-M Strength Start: 12/29/21 17:50 Freq: Status: Active Protocol: Document 03/13/22 13:50 [facility] (Rec: 03/13/22 16:30 [facility] [id number]) Shoulder Strength Shoulder Manual Muscle Testing Right Flexion 5 Normal Extension 5 Normal Abduction (C5) 5 Normal External Rotation 5 Normal Internal Rotation 5 Normal Left Flexion 4 Good Extension 4+ Good+ Abduction (C5) 4 Good External Rotation 4- Good- Internal Rotation 4+ Good+ PT-OP-Q Treatments Start: 12/29/21 17:50 Freq: Status: Active Protocol: Document 03/23/22 13:43 [facility] (Rec: 03/23/22 18:02 [facility] [id number]) Therapeutic Exercises Prone Exercises quadruped Prone Exercise Name 1. alt UE flex 2. alt LE ext Side bilateral Reps/Minutes 10 ea Comments max cues for neutral spine plank Side bilateral Reps/Minutes 20sec, 25sec x2 kristine pose Side bilateral Reps/Minutes 30 sec Manual Therapy Treatment Soft Tissue Mobilization lat Body Location L deltoid Mobilization Type Rolling,Strumming Intensity/Depth Moderate pec Body Location L pec Mobilization Type Sustained Pressure Comments w/abd & flex superior Body Location L UT & scalenes & LS Mobilization Type Rolling,Strumming Intensity/Depth Moderate Body Position Sidelying Joint Mobilizations rib Joint L first caudal FM GH Comments L post glide & translation, distraction, lat & inf glide FM-manual facilitation in end ranges AC Joint post scap L FM Comments w/overhead motion SC Joint L inf FM PT-OP-R Modalities Start: 12/29/21 17:50 Freq: Status: Active Protocol: Document 03/23/22 13:43 [facility] (Rec: 03/23/22 18:02 [facility] [id number]) Hot Pack/Cold Pack Treatment Cold Pack Location L shoulder Patient Position Hooklying Treatment Duration (minutes) 10 PT-OP-T Assessment and Plan Start: 12/29/21 17:50 Freq: Status: Active Protocol: Document 03/23/22 13:43 [facility] (Rec: 03/23/22 18:02 [facility] [id number]) Physical Therapy Assessment Goals activities Short Term Goal (STG) Pt will be able to sleep on L side w/o inc pain STG Duration achieved 1 Assisted Goal (LTG) Pt will be able to lift and do activities of force through LUE to allow her to do rec activities like paddling and work around home. 1/9hasn't tried d/t being sick for past 1 month LTG Duration 3/4 ROM Short Term Goal (STG) Pt will improve flex and abd by at least 15 deg each on L shoulder STG Duration achieved 19 Conveyor Tender Goal (LTG) Pt will have full L shoulder ROM as compared to R w/o pain to allow pt to do all overhead tasks at home 03/13-improved LTG Duration 3/4 strength Short Term Goal (STG) Pt will be indep w/HEP STG Duration achieved-advancinga s needed Assisted Goal (LTG) Pt will score at least 3/5 on EFT and 5/5 on MMT to LUE without inc pain to show improved strength and allow pt to return to her typical active lifestyle w/o inc pain. 03/13-improved LTG Duration 3/ Quick Dash Impairment 45.45 Short Term Goal (STG) Pt will improve Quick Dash score to at least 32 to show improved functional ability. STG Duration achieved to 25 03/13 Conveyor Tender Goal (LTG) Pt will improve Quick Dash score to at least 5 to show improved functional ability. 03/13-25 LTG Duration 3/4 Assessment Summary Assessment Pt had imrpoved overhead mobility after manual treatment and less tension. She did well with WB exercises , but does require max cues w/ form Physical Therapy Plan Frequency and Duration Frequency of Treatment 1-2x/week Duration of treatment (weeks) 8 Plan of Care Start Date 03/13/22 Plan of Care End Date 05/06/22 Next Visit Focus/Plan Next Note Type Treatment Note Next Visit Plan manual for improved motion ; cont working on upper thoracic and rib mobility
--- NOTE | 2022-04-05 10:33 | PT.OTN ---
Current Diagnoses Pain in left shoulder (04/05/22) Abnormal posture (04/05/22) Weakness (04/05/22) Physical Therapy Treatment Note PT-OP-A Visit Information Start: 12/29/21 17:50 Freq: Status: Active Protocol: Document 04/05/22 09:51 SP (Rec: 04/05/22 10:38 SP [id number]) Out-Patient Physical Therapy Visit Information Visit Information Visit Type Treatment Note Visit Note 07/12 Visit Start Time 09:51 Visit Stop Time 10:33 Total Visit Minutes 42 Visit Number 11 Number of TARGET SETTER Visits 1 PT-OP-B Current Condition Start: 12/29/21 17:50 Freq: Status: Active Protocol: Document 01/09/22 14:37 LR (Rec: 01/09/22 15:25 [facility] [id number]) Current Condition History of Current Condition Onset Date off/on for few years w/ worsening in last 6 months Current Complaints L shoulder pain History of Current Condition 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 L shoulder has a lot of the similar pains, but doesn't have a specific injury to L. It is not as severe as R side. She has led an active lifestyle so unsure if something is what hurt it. Pt reports her OT at [facility] recommended her to see this specific PT. L shoulder comes and goes and she feels it the most around a point in L biceps region. Pt reprots even sometimes just laying there 2 weeks ago, she had pain. this summer, she couldn't set up her tent. She can improve ability to abd if she presses on it to get more ROM. In the last 2 weeks, she has been doing okay but in the past, it will go up into her neck and she will have pain in neck and all the way down the arm to In the last couple weeks, she has been sedentary and it has gotten better. R shoulder healed well after surgery. Treatment Goals Patient/Caregiver Goals dec pain PT-OP-C Subjective Start: 12/29/21 17:50 Freq: Status: Active Protocol: Document 04/05/22 09:51 SP (Rec: 04/05/22 10:38 SP [id number]) OP-PT Subjective Patient Comments Patient Comments Pt reports feels getting more ROM with HEP. PT-OP-F Manual Assessment Start: 12/29/21 17:50 Freq: Status: Active Protocol: Document 01/09/22 14:37 [facility] (Rec: 01/09/22 15:25 [facility] [id number]) Manual Assessments Soft Tissue Assessment Soft Tissue Mobility Assessment tenderness throughout L UT, LS , infrspinatus, biceps, pec, scalenes PT-OP-J Posture/Palpation/Skin Start: 12/29/21 17:50 Freq: Status: Active Protocol: Document 01/09/22 14:37 [facility] (Rec: 01/10/22 08:08 [facility] [id number]) Posture Evaluation Comments Posture Comments humerus fwd in glenoid. abd and IR of scap PT-OP-K Range of Motion Start: 12/29/21 17:50 Freq: Status: Active Protocol: Document 03/13/22 13:50 [facility] (Rec: 03/13/22 16:30 [facility] [id number]) Shoulder Goniometric Range of Motion Shoulder Right Active Flexion 160 Extension 72 Abduction 180 External Rotation at 0 degrees Abduction 62 Internal Rotation Behind Back (text) T5 Left Active Flexion 135 Extension 60 Abduction 141 External Rotation at 90 degrees 68 Abduction External Rotation at 0 degrees Abduction 70 Internal Rotation Behind Back (text) T6 PT-OP-L Special Tests Start: 12/29/21 17:50 Freq: Status: Active Protocol: Document 01/09/22 14:37 [facility] (Rec: 01/09/22 15:25 [facility] [id number]) Special Tests Shoulder Special Tests [place] Test Test Results neg L Lopez Sunny Impingement Test Results poistive L Neer Impingement Test Results neg L Empty Can Test Results positive L Speed's Biceps Test Results positive Neural Special Tests- Upper Body Radial Nerve Tension Test Results neg Ulnar Nerve Tension Test Results neg Median Nerve Tension Test Results positive L PT-OP-M Strength Start: 12/29/21 17:50 Freq: Status: Active Protocol: Document 03/13/22 13:50 [facility] (Rec: 03/13/22 16:30 [facility] [id number]) Shoulder Strength Shoulder Manual Muscle Testing Right Flexion 5 Normal Extension 5 Normal Abduction (C5) 5 Normal External Rotation 5 Normal Internal Rotation 5 Normal Left Flexion 4 Good Extension 4+ Good+ Abduction (C5) 4 Good External Rotation 4- Good- Internal Rotation 4+ Good+ PT-OP-Q Treatments Start: 12/29/21 17:50 Freq: Status: Active Protocol: Document 04/05/22 09:51 SP (Rec: 04/05/22 10:38 SP [id number]) Therapeutic Exercises Supine Exercises foam roll Supine Exercise Name B shoulder flex, Habd, scaption Side bilateral Resistance AROM warm up, TB #1 Equipment Used noodle Reps/Minutes 2x10 Comments cued slow mvt allow LT and inferior GH glide Prone Exercises plank Prone Exercise Name to challenging off knees- hold Side bilateral Reps/Minutes 20sec, 25sec x2 Sidelying Exercises open book Side bilateral Reps/Minutes 3 min Comments head turn with arm abd Sidelying Exercise Name HABD, ABD Side left Resistance AROM, no wt today. Reps/Minutes 15 Standing Exercises self STMs Standing Exercise Name infraspinatus, rhomboid ball wall; theracane UT Equipment Used rac ball in sock, theracane Comments discussed, perform next tx. Manual Therapy Treatment Soft Tissue Mobilization lat Body Location L deltoid Mobilization Type Rolling,Strumming Intensity/Depth Moderate pec Body Location L pec Mobilization Type Sustained Pressure Comments w/abd & flex superior Body Location L UT & scalenes & LS Mobilization Type Rolling,Strumming Intensity/Depth Moderate Body Position Sidelying Self-Care/Home Management Treatment Education Patient Education Body Mechanics,Pain Management ,Posture Other Education Time spent side sleeping pillows btwn LEs, UE, under ribcage, head. Sitting ergonimics with sit posture over sit bones, neutral LS/ TS , CS. PT-OP-R Modalities Start: 12/29/21 17:50 Freq: Status: Active Protocol: Document 03/23/22 13:43 [facility] (Rec: 03/23/22 18:02 [facility] [id number]) Hot Pack/Cold Pack Treatment Cold Pack Location L shoulder Patient Position Hooklying Treatment Duration (minutes) 10 PT-OP-T Assessment and Plan Start: 12/29/21 17:50 Freq: Status: Active Protocol: Document 04/05/22 09:51 SP (Rec: 04/05/22 10:38 SP [id number]) Physical Therapy Assessment Goals activities Short Term Goal (STG) Pt will be able to sleep on L side w/o inc pain STG Duration achieved 03/13 Halfway Goal (LTG) Pt will be able to lift and do activities of force through LUE to allow her to do rec activities like paddling and work around home. asn't tried d/t being sick for past 1 month LTG Duration 3/4 ROM Short Term Goal (STG) Pt will improve flex and abd by at least 15 deg each on L shoulder STG Duration achieved 03/13 Halfway Goal (LTG) Pt will have full L shoulder ROM as compared to R w/o pain to allow pt to do all overhead tasks at home 03/13-improved LTG Duration 3/4 strength Short Term Goal (STG) Pt will be indep w/HEP STG Duration achieved-advancinga s needed Hand Driller Goal (LTG) Pt will score at least 3/5 on EFT and 5/5 on MMT to LUE without inc pain to show improved strength and allow pt to return to her typical active lifestyle w/o inc pain. 03/13-improved LTG Duration 3/ Quick Dash Impairment 45.45 Short Term Goal (STG) Pt will improve Quick Dash score to at least 32 to show improved functional ability. STG Duration achieved to 25 03/13 Hand Driller Goal (LTG) Pt will improve Quick Dash score to at least 5 to show improved functional ability. 03/13-25 LTG Duration 3/4 Assessment Summary Assessment Pt improved understanding mechanics of shoulder during ROM, slow pacing/ LR/ inferior GH glide reported decreased impinging feeling. Good tolerance to added resistance supine over noodle, might get for home vs small rolled yoga mat. Physical Therapy Plan Frequency and Duration Frequency of Treatment 1-2x/week Duration of treatment (weeks) 8 Plan of Care Start Date 03/13/22 Plan of Care End Date 05/06/22 Therapeutic Interventions Therapeutic Interventions Home Exercise Program,Joint Mobilizations,Manual Therapy, Neuromuscular Re-education, Orthotic/Prosthetic Management ,Patient/Caregiver Education, Self-Care/Home Management,Soft Tissue Mobilization,Taping, Therapeutic Activities, Therapeutic Exercises Modalities Cold Pack/Ice Massage,Electric Stimulation,Hot Packs, Infrared Therapy,Ultrasound Next Visit Focus/Plan Next Note Type Treatment Note Next Visit Plan Recheck HEP over noodle/TB, add self mnaual STMs discussed last tx. POC: manual for improved motion ; cont working on upper thoracic and rib mobility
--- NOTE | 2022-04-13 12:37 | PT.OTN ---
Current Diagnoses Pain in left shoulder (04/13/22) Abnormal posture (04/13/22) Weakness (04/13/22) Physical Therapy Treatment Note PT-OP-A Visit Information Start: 12/29/21 17:50 Freq: Status: Active Protocol: Document 04/13/22 11:19 [facility] (Rec: 04/13/22 12:09 [facility] [id number]) Out-Patient Physical Therapy Visit Information Visit Information Visit Type Treatment Note Visit Note 08/12 Visit Start Time 11:20 Visit Stop Time 12:00 Total Visit Minutes 40 Visit Number 12 Number of HOUSING SPECIALIST Visits 0 PT-OP-B Current Condition Start: 12/29/21 17:50 Freq: Status: Active Protocol: Document 01/09/22 14:37 [facility] (Rec: 01/09/22 15:25 [facility] [id number]) Current Condition History of Current Condition Onset Date off/on for few years w/ worsening in last 6 months Current Complaints L shoulder pain History of Current Condition 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 L shoulder has a lot of the similar pains, but doesn't have a specific injury to L. It is not as severe as R side. She has led an active lifestyle so unsure if something is what hurt it. Pt reports her OT at [facility] recommended her to see this specific PT. L shoulder comes and goes and she feels it the most around a point in L biceps region. Pt reprots even sometimes just laying there 2 weeks ago, she had pain. this summer, she couldn't set up her tent. She can improve ability to abd if she presses on it to get more ROM. In the last 2 weeks, she has been doing okay but in the past, it will go up into her neck and she will have pain in neck and all the way down the arm to In the last couple weeks, she has been sedentary and it has gotten better. R shoulder healed well after surgery. Treatment Goals Patient/Caregiver Goals dec pain PT-OP-C Subjective Start: 12/29/21 17:50 Freq: Status: Active Protocol: Document 04/13/22 11:19 [facility] (Rec: 04/13/22 12:36 [facility] [id number]) OP-PT Subjective Patient Comments Patient Comments pt reports she has been working on not leaning on arm PT-OP-F Manual Assessment Start: 12/29/21 17:50 Freq: Status: Active Protocol: Document 01/09/22 14:37 [facility] (Rec: 01/09/22 15:25 [facility] [id number]) Manual Assessments Soft Tissue Assessment Soft Tissue Mobility Assessment tenderness throughout L UT, LS , infrspinatus, biceps, pec, scalenes PT-OP-J Posture/Palpation/Skin Start: 12/29/21 17:50 Freq: Status: Active Protocol: Document 01/09/22 14:37 [facility] (Rec: 01/10/22 08:08 [facility] [id number]) Posture Evaluation Comments Posture Comments humerus fwd in glenoid. abd and IR of scap PT-OP-K Range of Motion Start: 12/29/21 17:50 Freq: Status: Active Protocol: Document 03/13/22 13:50 [facility] (Rec: 03/13/22 16:30 [facility] [id number]) Shoulder Goniometric Range of Motion Shoulder Right Active Flexion 160 Extension 72 Abduction 180 External Rotation at 0 degrees Abduction 62 Internal Rotation Behind Back (text) T5 Left Active Flexion 135 Extension 60 Abduction 141 External Rotation at 90 degrees 68 Abduction External Rotation at 0 degrees Abduction 70 Internal Rotation Behind Back (text) T6 PT-OP-L Special Tests Start: 12/29/21 17:50 Freq: Status: Active Protocol: Document 01/09/22 14:37 [facility] (Rec: 01/09/22 15:25 [facility] [id number]) Special Tests Shoulder Special Tests [place] Test Test Results neg L Lopez Sunny Impingement Test Results poistive L Neer Impingement Test Results neg L Empty Can Test Results positive L Speed's Biceps Test Results positive Neural Special Tests- Upper Body Radial Nerve Tension Test Results neg Ulnar Nerve Tension Test Results neg Median Nerve Tension Test Results positive L PT-OP-M Strength Start: 12/29/21 17:50 Freq: Status: Active Protocol: Document 03/13/22 13:50 [facility] (Rec: 03/13/22 16:30 [facility] [id number]) Shoulder Strength Shoulder Manual Muscle Testing Right Flexion 5 Normal Extension 5 Normal Abduction (C5) 5 Normal External Rotation 5 Normal Internal Rotation 5 Normal Left Flexion 4 Good Extension 4+ Good+ Abduction (C5) 4 Good External Rotation 4- Good- Internal Rotation 4+ Good+ PT-OP-Q Treatments Start: 12/29/21 17:50 Freq: Status: Active Protocol: Document 04/13/22 11:19 [facility] (Rec: 04/13/22 12:36 [facility] [id number]) Manual Therapy Treatment Soft Tissue Mobilization superior Body Location L UT & scalenes & LS Mobilization Type Rolling,Strumming Intensity/Depth Moderate Body Position Sidelying post Body Location L teres, rhomboids, LS Mobilization Type Sustained Pressure Intensity/Depth Moderate Body Position Supine Joint Mobilizations rib Comments rib 7 depression FM ;rib 1 cuadal fM thoracic Comments UPA L T1-4 FM; transverse R T1 &3, AC Joint post scap L FM Comments w/overhead motion PT-OP-R Modalities Start: 12/29/21 17:50 Freq: Status: Active Protocol: Document 03/23/22 13:43 [facility] (Rec: 03/23/22 18:02 [facility] [id number]) Hot Pack/Cold Pack Treatment Cold Pack Location L shoulder Patient Position Hooklying Treatment Duration (minutes) 10 PT-OP-T Assessment and Plan Start: 12/29/21 17:50 Freq: Status: Active Protocol: Document 04/13/22 11:19 [facility] (Rec: 04/13/22 12:09 [facility] [id number]) Physical Therapy Assessment Goals activities Short Term Goal (STG) Pt will be able to sleep on L side w/o inc pain STG Duration achieved 03/13 [facility] Goal (LTG) Pt will be able to lift and do activities of force through LUE to allow her to do rec activities like paddling and work around home. 19hasn't tried d/t being sick for past 1 month LTG Duration 3/4 ROM Short Term Goal (STG) Pt will improve flex and abd by at least 15 deg each on L shoulder STG Duration achieved 03/13 [facility] Goal (LTG) Pt will have full L shoulder ROM as compared to R w/o pain to allow pt to do all overhead tasks at home 03/13-improved LTG Duration 3/4 strength Short Term Goal (STG) Pt will be indep w/HEP STG Duration achieved-advancinga s needed [facility] Goal (LTG) Pt will score at least 3/5 on EFT and 5/5 on MMT to LUE without inc pain to show improved strength and allow pt to return to her typical active lifestyle w/o inc pain. 03/13-improved LTG Duration 3/4 Quick Dash Impairment 45.45 Short Term Goal (STG) Pt will improve Quick Dash score to at least 32 to show improved functional ability. STG Duration achieved to 25 03/13 [employer] Appointment Coordinator Goal (LTG) Pt will improve Quick Dash score to at least 5 to show improved functional ability. 03/13-25 LTG Duration 3/4 Assessment Summary Assessment Pt started with flex to 90 before pain starsted and abd to about 45 before discomfort started. After manual, improved flex to full and abd to 90 but when finished w/UPA on L upper thoracic, pt had inc pain w/abd. Pt iced at end of session. Physical Therapy Plan Next Visit Focus/Plan Next Note Type Treatment Note Next Visit Plan Recheck HEP over noodle/TB, add self mnaual STMs discussed last tx. POC: manual for improved motion ; cont working on upper thoracic and rib mobility
--- NOTE | 2022-05-01 17:41 | PT.OTN ---
Current Diagnoses Pain in left shoulder (05/01/22) Abnormal posture (05/01/22) Weakness (05/01/22) Physical Therapy Treatment Note PT-OP-A Visit Information Start: 12/29/21 17:50 Freq: Status: Active Protocol: Document 05/01/22 15:23 [facility] (Rec: 05/01/22 16:06 [facility] [id number]) Out-Patient Physical Therapy Visit Information Visit Information Visit Start Time 15:22 Visit Stop Time 16:10 Total Visit Minutes 48 Visit Number 13 Number of RELIEF WORKER Visits 0 PT-OP-B Current Condition Start: 12/29/21 17:50 Freq: Status: Active Protocol: Document 01/09/22 14:37 [facility] (Rec: 01/09/22 15:25 [facility] [id number]) Current Condition History of Current Condition Onset Date off/on for few years w/ worsening in last 6 months Current Complaints L shoulder pain History of Current Condition 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 L shoulder has a lot of the similar pains, but doesn't have a specific injury to L. It is not as severe as R side. She has led an active lifestyle so unsure if something is what hurt it. Pt reports her OT at [facility] recommended her to see this specific PT. L shoulder comes and goes and she feels it the most around a point in L biceps region. Pt reprots even sometimes just laying there 2 weeks ago, she had pain. this summer, she couldn't set up her tent. She can improve ability to abd if she presses on it to get more ROM. In the last 2 weeks, she has been doing okay but in the past, it will go up into her neck and she will have pain in neck and all the way down the arm to In the last couple weeks, she has been sedentary and it has gotten better. R shoulder healed well after surgery. Treatment Goals Patient/Caregiver Goals dec pain PT-OP-C Subjective Start: 12/29/21 17:50 Freq: Status: Active Protocol: Document 05/01/22 15:23 [facility] (Rec: 05/01/22 16:06 [facility] [id number]) OP-PT Subjective Patient Comments Patient Comments Pt reports she notices she always leans L so thinks that does affect her posture a bit Patient Questionnaires Quick Dash- Upper Extremity Quick Dash UE Score 11.4 PT-OP-F Manual Assessment Start: 12/29/21 17:50 Freq: Status: Active Protocol: Document 01/09/22 14:37 [facility] (Rec: 01/09/22 15:25 [facility] [id number]) Manual Assessments Soft Tissue Assessment Soft Tissue Mobility Assessment tenderness throughout L UT, LS , infrspinatus, biceps, pec, scalenes PT-OP-J Posture/Palpation/Skin Start: 12/29/21 17:50 Freq: Status: Active Protocol: Document 01/09/22 14:37 [facility] (Rec: 01/10/22 08:08 [facility] [id number]) Posture Evaluation Comments Posture Comments humerus fwd in glenoid. abd and IR of scap PT-OP-K Range of Motion Start: 12/29/21 17:50 Freq: Status: Active Protocol: Document 05/01/22 15:23 [facility] (Rec: 05/01/22 16:06 [facility] [id number]) Shoulder Goniometric Range of Motion Shoulder Right Active Flexion 160 Extension 72 Abduction 180 External Rotation at 90 degrees 103 Abduction External Rotation at 0 degrees Abduction 62 Internal Rotation Behind Back (text) T5 Left Active Flexion 150 Extension 60 Abduction 175 External Rotation at 90 degrees 85 Abduction External Rotation at 0 degrees Abduction 78 Internal Rotation Behind Back (text) T5 Comments pain w/ext, flex; painful arch w/abd; pain end ranges except IR PT-OP-L Special Tests Start: 12/29/21 17:50 Freq: Status: Active Protocol: Document 01/09/22 14:37 [facility] (Rec: 01/09/22 15:25 [facility] [id number]) Special Tests Shoulder Special Tests [place] Test Test Results neg L Lopez Sunny Impingement Test Results poistive L Neer Impingement Test Results neg L Empty Can Test Results positive L Speed's Biceps Test Results positive Neural Special Tests- Upper Body Radial Nerve Tension Test Results neg Ulnar Nerve Tension Test Results neg Median Nerve Tension Test Results positive L PT-OP-M Strength Start: 12/29/21 17:50 Freq: Status: Active Protocol: Document 05/01/22 15:23 [facility] (Rec: 05/01/22 16:06 [facility] [id number]) Shoulder Strength Shoulder Manual Muscle Testing Right Flexion 5 Normal Extension 5 Normal Abduction (C5) 5 Normal Adduction 5 Normal External Rotation 4+ Good+ Internal Rotation 5 Normal Horizontal Abduction 4+ Good+ Horizontal Adduction 5 Normal Left Flexion 5 Normal Extension 5 Normal Abduction (C5) 4+ Good+ Adduction 5 Normal External Rotation 4+ Good+ Internal Rotation 4+ Good+ Horizontal Abduction 4+ Good+ Horizontal Adduction 5 Normal PT-OP-Q Treatments Start: 12/29/21 17:50 Freq: Status: Active Protocol: Document 05/01/22 15:23 [facility] (Rec: 05/01/22 16:06 [facility] [id number]) Therapeutic Exercises Standing Exercises HABD Standing Exercise Name w/flex Side bilateral Equipment Used lvl 1 Reps/Minutes 15 Comments in mirror ER Standing Exercise Name 90/90 Side left Reps/Minutes 2x10 Manual Therapy Treatment Soft Tissue Mobilization pec Body Location L pec Mobilization Type Sustained Pressure Comments w/abd & flex Joint Mobilizations GH Joint L Direction post FM & distraction FM w/ manual faciliation at end ranges AC Joint post acromian FM SC Joint L AP, caudal FM PT-OP-R Modalities Start: 12/29/21 17:50 Freq: Status: Active Protocol: Document 05/01/22 15:23 [facility] (Rec: 05/01/22 17:39 [facility] [id number]) Hot Pack/Cold Pack Treatment Cold Pack Location L shoulder Patient Position Hooklying Treatment Duration (minutes) 10 PT-OP-T Assessment and Plan Start: 12/29/21 17:50 Freq: Status: Active Protocol: Document 05/01/22 15:23 [facility] (Rec: 05/01/22 16:06 [facility] [id number]) Physical Therapy Assessment Goals activities Short Term Goal (STG) Pt will be able to sleep on L side w/o inc pain STG Duration achieved 03/13 Pipeline Dispatcher Goal (LTG) Pt will be able to lift and do activities of force through LUE to allow her to do rec activities like paddling and work around home. 1asn't tried d/t being sick for past 1 month 05/01-does hurt still but can do hard work around house. She hasn't tried paddling LTG Duration 4/25 ROM Short Term Goal (STG) Pt will improve flex and abd by at least 15 deg each on L shoulder STG Duration achieved 03/13 Usp Goal (LTG) Pt will have full L shoulder ROM as compared to R w/o pain to allow pt to do all overhead tasks at home 03/13-improved 05/01-close to full range but discomfort at end ranges LTG Duration 06/26 strength Short Term Goal (STG) Pt will be indep w/HEP STG Duration achieved-advancinga s needed Usp Goal (LTG) Pt will score at least 3/5 on EFT and 5/5 on MMT to LUE without inc pain to show improved strength and allow pt to return to her typical active lifestyle w/o inc pain. 03/13-improved 05/01-improved MMT : EFT:2/5 LTG Duration 06/26 Quick Dash Impairment 45.45 Short Term Goal (STG) Pt will improve Quick Dash score to at least 32 to show improved functional ability. STG Duration achieved to 25 03/13 Pipeline Dispatcher Goal (LTG) Pt will improve Quick Dash score to at least 5 to show improved functional ability. 03/13-05/01-11.4 LTG Duration 06/26 Assessment Summary Assessment Pt is making good improvements with strength, ROM and functional ability. She cont to have discomfort at end ranges and shows s/s of impingment syndrome and irritation of L biceps tendson . Cont PT to help improve functional abilityand dc pain Physical Therapy Plan Frequency and Duration Frequency of Treatment 1-2x/week Duration of treatment (weeks) 8 Plan of Care Start Date 05/01/22 Plan of Care End Date 06/26/22 Therapeutic Interventions Therapeutic Interventions Home Exercise Program,Joint Mobilizations,Manual Therapy, Neuromuscular Re-education, Orthotic/Prosthetic Management ,Patient/Caregiver Education, Self-Care/Home Management,Soft Tissue Mobilization,Taping, Therapeutic Activities, Therapeutic Exercises Modalities Cold Pack/Ice Massage,Electric Stimulation,Hot Packs, Infrared Therapy,Ultrasound Next Visit Focus/Plan Next Note Type Treatment Note Next Visit Plan POC: manual for improved motion ; cont working on upper thoracic and rib mobility
--- NOTE | 2022-05-01 17:41 | PT.OPPOC ---
Physical, Occupational & Speech Therapy At [facility] Current Diagnoses Pain in left shoulder (05/01/22) Abnormal posture (05/01/22) Weakness (05/01/22) Visit Care Team Role Provider Type Rebeca Muñoz MD Attending Provider Non-Staff Family Provider Primary Care Provider Referring Provider Specialty: Family Practice Address: [address] [place] [address], [facility] Email: Plan Of Care PT-OP-T Assessment and Plan Start: 12/29/21 17:50 Freq: Status: Active Protocol: Document 05/01/22 15:23 [facility] (Rec: 05/01/22 16:06 [facility] [id number]) Physical Therapy Assessment Goals activities Short Term Goal (STG) Pt will be able to sleep on L side w/o inc pain STG Duration achieved 03/13 Fdc Goal (LTG) Pt will be able to lift and do activities of force through LUE to allow her to do rec activities like paddling and work around home. asn't tried d/t being sick for past 1 month 05/01-does hurt still but can do hard work around house. She hasn't tried paddling LTG Duration 06/27 ROM Short Term Goal (STG) Pt will improve flex and abd by at least 15 deg each on L shoulder STG Duration achieved 03/13 Fdc Goal (LTG) Pt will have full L shoulder ROM as compared to R w/o pain to allow pt to do all overhead tasks at home 03/13-improved 05/01-close to full range but discomfort at end ranges LTG Duration 06/26 strength Short Term Goal (STG) Pt will be indep w/HEP STG Duration achieved-advancinga s needed Wool Shearer Goal (LTG) Pt will score at least 3/5 on EFT and 5/5 on MMT to LUE without inc pain to show improved strength and allow pt to return to her typical active lifestyle w/o inc pain. 03/13-improved 05/01-improved MMT : EFT:2/5 LTG Duration 06/26 Quick Dash Impairment 45.45 Short Term Goal (STG) Pt will improve Quick Dash score to at least 32 to show improved functional ability. STG Duration achieved to 25 03/13 Fdc Goal (LTG) Pt will improve Quick Dash score to at least 5 to show improved functional ability. 03/13-05/01-11.4 LTG Duration 06/26 Assessment Summary Assessment Pt is making good improvements with strength, ROM and functional ability. She cont to have discomfort at end ranges and shows s/s of impingment syndrome and irritation of L biceps tendson . Cont PT to help improve functional abilityand dc pain Physical Therapy Plan Frequency and Duration Frequency of Treatment 1-2x/week Duration of treatment (weeks) 8 Plan of Care Start Date 05/01/22 Plan of Care End Date 06/26/22 Therapeutic Interventions Therapeutic Interventions Home Exercise Program,Joint Mobilizations,Manual Therapy, Neuromuscular Re-education, Orthotic/Prosthetic Management ,Patient/Caregiver Education, Self-Care/Home Management,Soft Tissue Mobilization,Taping, Therapeutic Activities, Therapeutic Exercises Modalities Cold Pack/Ice Massage,Electric Stimulation,Hot Packs, Infrared Therapy,Ultrasound Next Visit Focus/Plan Next Note Type Treatment Note Next Visit Plan POC: manual for improved motion ; cont working on upper thoracic and rib mobility Plan of Care Dates Plan of Care Start Date 05/01/22 Plan of Care End Date 06/26/22 Electronically Signed by: Diana Cardoza, PT 05/01/22 0995 If you are in agreement with this Plan of Care, please return a signed and dated copy. I have reviewed this Plan of Care and certify that the skilled therapy services above are required to meet the patient?s needs. Physician Signature Date Printed Name and Credentials Clinical Instructor Signature Printed Name and Credentials
--- NOTE | 2022-05-08 08:35 | PT-OP ANOTE ---
Pt no showed appt and message left re: no show policy along w/next scheduled appt. Pt asked to call to cancel if unable to make appts.
--- NOTE | 2022-05-24 08:12 | PT-OP ANOTE ---
Pt DNS for appt on 05/08, see admin note. Pt called 05/17/22 and cancelled last scheduled appt due to complications with eye surgery, stated will call back to schedule PT appts. PN recently updated with PT 05/01/22. Suggest calling patient to update appts 1-2x/ week per POC, expires 06/26/22.
--- NOTE | 2022-06-22 18:21 | PT.OTN ---
Current Diagnoses Pain in left shoulder (06/22/22) Abnormal posture (06/22/22) Weakness (06/22/22) Physical Therapy Treatment Note PT-OP-A Visit Information Start: 12/29/21 17:50 Freq: Status: Active Protocol: Document 06/22/22 16:04 [facility] (Rec: 06/22/22 18:21 [facility] [id number]) Out-Patient Physical Therapy Visit Information Visit Information Visit Type Progress Note Visit Start Time 16:05 Visit Stop Time 16:47 Total Visit Minutes 42 Visit Number 14 Number of PROFESSOR OF CRIMINAL JUSTICE Visits 0 PT-OP-B Current Condition Start: 12/29/21 17:50 Freq: Status: Active Protocol: Document 01/09/22 14:37 [facility] (Rec: 01/09/22 15:25 [facility] [id number]) Current Condition History of Current Condition Onset Date off/on for few years w/ worsening in last 6 months Current Complaints L shoulder pain History of Current Condition 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 L shoulder has a lot of the similar pains, but doesn't have a specific injury to L. It is not as severe as R side. She has led an active lifestyle so unsure if something is what hurt it. Pt reports her OT at [facility] recommended her to see this specific PT. L shoulder comes and goes and she feels it the most around a point in L biceps region. Pt reprots even sometimes just laying there 2 weeks ago, she had pain. this summer, she couldn't set up her tent. She can improve ability to abd if she presses on it to get more ROM. In the last 2 weeks, she has been doing okay but in the past, it will go up into her neck and she will have pain in neck and all the way down the arm to In the last couple weeks, she has been sedentary and it has gotten better. R shoulder healed well after surgery. Treatment Goals Patient/Caregiver Goals dec pain PT-OP-C Subjective Start: 12/29/21 17:50 Freq: Status: Active Protocol: Document 06/22/22 16:04 [facility] (Rec: 06/22/22 18:21 [facility] [id number]) OP-PT Subjective Patient Comments Patient Comments Pt reprots her cataract surgery went poorly and has had L eye inflamtion. notes recent L jaw pain and temporal pain. Reprots L neck pain also. Reprots L shoulder has not bothered her much but she hasn't done as much recently. PT-OP-F Manual Assessment Start: 12/29/21 17:50 Freq: Status: Active Protocol: Document 01/09/22 14:37 [facility] (Rec: 01/09/22 15:25 [facility] [id number]) Manual Assessments Soft Tissue Assessment Soft Tissue Mobility Assessment tenderness throughout L UT, LS , infrspinatus, biceps, pec, scalenes PT-OP-J Posture/Palpation/Skin Start: 12/29/21 17:50 Freq: Status: Active Protocol: Document 06/22/22 16:04 [facility] (Rec: 06/22/22 18:21 [facility] [id number]) Posture Evaluation [facility] Postural Classification System Elbow Flexion Test 3 PT-OP-K Range of Motion Start: 12/29/21 17:50 Freq: Status: Active Protocol: Document 06/22/22 16:04 [facility] (Rec: 06/22/22 18:21 [facility] [id number]) Shoulder Goniometric Range of Motion Shoulder Left Active Flexion 159 Extension 68 Abduction 180 External Rotation at 90 degrees 100 Abduction External Rotation at 0 degrees Abduction 81 Internal Rotation Behind Back (text) T5 Comments tight at end range and some soreness PT-OP-L Special Tests Start: 12/29/21 17:50 Freq: Status: Active Protocol: Document 01/09/22 14:37 [facility] (Rec: 01/09/22 15:25 [facility] [id number]) Special Tests Shoulder Special Tests [place] Test Test Results neg L Lopez Sunny Impingement Test Results poistive L Neer Impingement Test Results neg L Empty Can Test Results positive L Speed's Biceps Test Results positive Neural Special Tests- Upper Body Radial Nerve Tension Test Results neg Ulnar Nerve Tension Test Results neg Median Nerve Tension Test Results positive L PT-OP-M Strength Start: 12/29/21 17:50 Freq: Status: Active Protocol: Document 06/22/22 16:04 [facility] (Rec: 06/22/22 18:21 [facility] [id number]) Shoulder Strength Shoulder Manual Muscle Testing Right Flexion 5 Normal Extension 5 Normal Abduction (C5) 5 Normal Adduction 5 Normal External Rotation 4+ Good+ Internal Rotation 5 Normal Horizontal Abduction 4+ Good+ Horizontal Adduction 5 Normal Left Flexion 5 Normal Extension 5 Normal Abduction (C5) 5 Normal Adduction 5 Normal External Rotation 5 Normal Internal Rotation 4+ Good+ Horizontal Abduction 4+ Good+ Horizontal Adduction 5 Normal PT-OP-Q Treatments Start: 12/29/21 17:50 Freq: Status: Active Protocol: Document 06/22/22 16:04 [facility] (Rec: 06/22/22 18:21 [facility] [id number]) Therapeutic Exercises Supine Exercises diaphragmatic breathing Supine Exercise Name cues for lat ribcage expansion , post and belly Side bilateral Reps/Minutes 8 Sidelying Exercises open book Side left Reps/Minutes 12 Comments head turn with arm Other Exercises cat/cow Other Exercise Name w/rock backs to bias thoracic ext Reps/Minutes 8 triangle Side bilateral Reps/Minutes 3 kristine Side bilateral Reps/Minutes 30 sec downdog Side bilateral Reps/Minutes 30 sec Self-Care/Home Management Treatment Education Other Education 19 min:Discussion of getting referral for other issues pt is reporting if MD thinks appropriate (sees primary in 2 weeks) encouraged her to check w/eye MD prior to starting PT on jaw as mm are close to eye. Pt educated on anatomy of neck, jaw and vagus n as she has these concerns and questions. edu to do yoga and gradually inc it to help w / pain and stress. Discussed her progress and plan for DC today PT-OP-R Modalities Start: 12/29/21 17:50 Freq: Status: Active Protocol: Document 05/01/22 15:23 [facility] (Rec: 05/01/22 17:39 [facility] [id number]) Hot Pack/Cold Pack Treatment Cold Pack Location L shoulder Patient Position Hooklying Treatment Duration (minutes) 10 PT-OP-T Assessment and Plan Start: 12/29/21 17:50 Freq: Status: Active Protocol: Document 06/22/22 16:04 [facility] (Rec: 06/22/22 18:21 [facility] [id number]) Physical Therapy Assessment Goals activities Short Term Goal (STG) Pt will be able to sleep on L side w/o inc pain STG Duration achieved 03/13 Mcc Goal (LTG) Pt will be able to lift and do activities of force through LUE to allow her to do rec activities like paddling and work around home. 1/9hasn't tried d/t being sick for past 1 month 05/01-does hurt still but can do hard work around house. She hasn't tried paddling LTG Duration achieved w/home activity but hasn't paddled yet d/t weather ROM Short Term Goal (STG) Pt will improve flex and abd by at least 15 deg each on L shoulder STG Duration achieved 03/13 Safety Director Goal (LTG) Pt will have full L shoulder ROM as compared to R w/o pain to allow pt to do all overhead tasks at home 03/13-improved 05/01-close to full range but discomfort at end ranges LTG Duration achieved w/just tightness at end range strength Short Term Goal (STG) Pt will be indep w/HEP STG Duration achieved-advancinga s needed Mcc Goal (LTG) Pt will score at least 3/5 on EFT and 5/5 on MMT to LUE without inc pain to show improved strength and allow pt to return to her typical active lifestyle w/o inc pain. 03/13-improved 05/01-improved MMT : EFT:2 LTG Duration mostly achieved Quick Dash Impairment 45.45 Short Term Goal (STG) Pt will improve Quick Dash score to at least 32 to show improved functional ability. STG Duration achieved to 25 03/13 Safety Director Goal (LTG) Pt will improve Quick Dash score to at least 5 to show improved functional ability. 03/13-25 05/01-11.4 06/22/22-n/t LTG Duration n/t Assessment Summary Assessment Pt needed extra time w/cueing and focus on point of each exercise and how to set up her shoulder in positions. She has made great gains w/ROM and strength but is still noting tightness at end range. She has larger c/o jaw and neck pain. DC at this time and pt to discuss w/provider for further potential referral. Physical Therapy Plan Discharge Physical Therapy Discharge Reasons Goals Met Discharge Comments Pt to get new referral for larger concerns; most goals met or almost fully met
== END 2022-06-23 11:47 | disposition home or self-care (01) ==
LOC: PHYS 16:00
PROVIDERS: Family Provider Family Medicine; PCP Family Medicine; Referring Provider Family Medicine; Visit Provider Family Medicine
DX: M25.512 Pain in left shoulder (principal); R53.1 Weakness; R29.3 Abnormal posture
CPT/HCPCS: 97110; 97140; 97162; 97535

== ENCOUNTER → 2022-07-28 18:11 | Outpatient (CLI) | payer MEDICARE, OTHER, SELFPAY ==
--- NOTE | 2022-07-28 18:15 | DI.RAD.S_ITS ---
PROCEDURE: XR TOE RT MIN 2V INDICATIONS: 3rd toe injury TECHNIQUE: An AP view of the right foot and 2 views of the right 3rd toe(s) acquired. COMPARISON: None. FINDINGS: Bones: In this patient with this given history, scrutiny is given to the 3rd toe. No focal 3rd toe abnormality can be seen. Generalized degenerative changes are seen. Soft tissues: No suspicious soft tissue densities. IMPRESSION: No focal 3rd toe abnormality is seen. Dictated by: Castro Ndiaye M.D. on 07/28/2022 at 23:26 Approved by: Castro Ndiaye M.D. on 07/28/2022 at 23:27
== END ==
PROVIDERS: Family Provider Family Medicine; PCP Family Medicine; Referring Provider Nurse Practitioner Family; Visit Provider Nurse Practitioner Family
DX: S99.921A Unspecified injury of right foot, initial encounter (principal)
CPT/HCPCS: 73660

== ENCOUNTER 2023-07-03 13:45 | Outpatient (RCR) | payer MEDICARE, OTHER, SELFPAY ==
--- NOTE | 2022-12-06 10:41 | PT.OIE ---
Current Diagnoses Arthralgia of bilateral temporomandibular joint (12/06/22) Cervicalgia (12/06/22) Abnormal posture (12/06/22) Visit Care Team Role Provider Type Rebeca Muñoz MD Attending Provider Non-Staff Family Provider Primary Care Provider Referring Provider Specialty: Family Practice Address: [address] [place] [address], [phone] Email: Physical Therapy Initial Evaluation PT-OP-A Visit Information Start: 11/22/22 15:01 Freq: Status: Active Protocol: Document 12/06/22 07:30 [facility] (Rec: 12/06/22 10:41 [facility] [id number]) Out-Patient Physical Therapy Visit Information Visit Information Visit Type Initial Evaluation Visit Note 03/14 Visit Start Time 08:22 Visit Stop Time 09:05 Total Visit Minutes 42 Visit Number 1 Number of FEATHER DUSTER WINDER Visits 0 PT-OP-B Current Condition Start: 11/22/22 15:01 Freq: Status: Active Protocol: Document 12/06/22 07:30 [facility] (Rec: 12/06/22 10:41 [facility] [id number]) Current Condition History of Current Condition Onset Date 6 months ago Current Complaints L TMJ History of Current Condition Pt has been seeing a DO that does craniosacral and it was helping but she hit a wall that was helping the pain any more. She went to [facility] and was considering mm relaxors. It was in L jaw and radiated down mandible and into teeth. It would also radiate down L side of neck and upper cervical of R neck. For months it was constant, and 2 days ago she went to this lady recommended by a friend. She did craniosacral and some myofascial release along the jaw and they made a good amount of progress in the session. At this moment, she feels it but it is no longer screaming at her. She had cataract surgery on L eye and right after that she had pain after. She is having trouble with the eye. She was supposed to not have to wear glasses and still has to and there is just a tug to her L lat eye and there is a viscous watering. L eye is also painful. It feels sore. Pain inc w/eating and had to do soft foods only. She eats mostly on R. The electric toothbrush hurts teeth. sometimes just moving around irritates it. It is now in the lower jaw. The vibration of talking irritates that. Denies DOMINGUEZ. Typically no dizziness or lightheadeness but the other day. She just got up out of bed and was dizzy and was careful and it went away quickly. Has not had it sense. Treatment Goals Patient/Caregiver Goals dec jaw pain, eat w/o pain, no constant pain PT-OP-C Subjective Start: 11/22/22 15:01 Freq: Status: Active Protocol: Document 12/06/22 07:30 [facility] (Rec: 12/06/22 10:41 [facility] [id number]) Patient Questionnaires Neck Disability Index NDI Score 09/26 (back page not given to pt by accident) PT-OP-F Manual Assessment Start: 11/22/22 15:01 Freq: Status: Active Protocol: Document 12/06/22 07:30 [facility] (Rec: 12/06/22 10:41 [facility] [id number]) Manual Assessments Soft Tissue Assessment Soft Tissue Mobility Assessment tightness on L masseter, temporalis, B digastric & pterygoids, L>R scalenes, B SCM, L>R cervical paraspinals Joint Mobility Assessment Joint Mobility Assessment L 1st rib elevated, L shear of C1 and 2 and R rot PT-OP-K Range of Motion Start: 11/22/22 15:01 Freq: Status: Active Protocol: Document 12/06/22 07:30 [facility] (Rec: 12/06/22 10:41 [facility] [id number]) Cervical Spine Range of Motion Cervical Spine Active Degrees Flexion 71 Extension 42 Rotation Left 72 Rotation Right 72 Lateral Flexion Left 21 Lateral Flexion Right 31 Comments mild pain w/flex; contra tightness w/SB TMJ Range of Motion Jaw Openning Jaw Openning (mm) 24 Comments Comments deviates w/C curve to R then L ; signfiicant ant shear of L TMJ; w/closing L side teeth hit first; w/closing L TMJ glides post PT-OP-L Special Tests Start: 11/22/22 15:01 Freq: Status: Active Protocol: Document 12/06/22 07:30 [facility] (Rec: 12/06/22 10:41 [facility] [id number]) Special Tests Cervical Spine Special Tests Traction Test Results neg arterial screening Comments carotid and heart ausciltation : WNL Spurling's Test Test Results neg Other Special Tests Special Tests BP:120/73 PT-OP-Q Treatments Start: 11/22/22 15:01 Freq: Status: Active Protocol: Document 12/06/22 07:30 [facility] (Rec: 12/06/22 10:41 [facility] [id number]) Self-Care/Home Management Treatment Education Other Education 10 min: pt education on jaw mechanics. Dicussed disc anatomy and normal mechanics vs pathological mechanics including her current issues. Edu on improtance of upper cervical mobility/positioning and pt verbalizes understanding; edu to start jaw opening exercise 10x a day (5 reps at a time) PT-OP-T Assessment and Plan Start: 11/22/22 15:01 Freq: Status: Active Protocol: Document 12/06/22 07:30 [facility] (Rec: 12/06/22 10:41 [facility] [id number]) Physical Therapy Assessment Rehab Potential Rehabilitation Potential Good Evaluation Complexity Number of Personal Factors/Comorbidities 3 or More Number of Body Systems Impaired 4 or More Clinical Presentation at Evaluation Evolving Impairments Impairments Activity Tolerance,Functional Activities,Functional Mobility ,Pain,Posture,ROM,Soft Tissue Mobility Goals pain Short Term Goal (STG) Pt will report no constant jaw pain throughout day. STG Duration 01/22/23 Fdc Goal (LTG) Pt will be able to talk and eat w/o inc jaw pain. LTG Duration 02/28/23 cervical ROM Fdc Goal (LTG) Pt will have full cervical ROM w/o inc pain in order to allow pt to do typical ADLs w/ o inc pain. LTG Duration 02/28/23 jaw opening Short Term Goal (STG) Pt will be able to open jaw at least 33 mm STG Duration 01/27/23 Agricultural Specialist Goal (LTG) Pt will be able to open jaw at least 40 mm w/o pain and w/o deviation. LTG Duration 02/28/23 Assessment Summary Assessment Pt presents w/L jaw pain that radiates to inf manible, teeth and into L neck to shoulder and R upper cervical. This started after her catact surgery 6 months ago. She has tried work w/LMT, DO and seen dentists. She has had soem progress w/massage and DO work but does still have constant pain in L jaw. She cannot brush her teeth w/electric toothbrush d/t the pain and has pain if she chews on the L side and even notes pain w/R sided chewing in L jaw. She has shearing at TMJ and upper cervical dysfunctions that are likely causing these c/o pain . D/t pt severity of pain, trigeminal neuralgia is also a possible diagnosis. Pt would benefit from skilled PT to work on upper thoracic, ribcage, cervical and jaw mehcanics to improved posture and allow pt to dec pain in neck and jaw and return to eating and other activities w/ o inc pain. Physical Therapy Plan Frequency and Duration Duration of treatment (weeks) 12 Plan of Care Start Date 12/06/22 Plan of Care End Date 02/28/23 Therapeutic Interventions Therapeutic Interventions Home Exercise Program,Joint Mobilizations,Manual Therapy, Neuromuscular Re-education, Orthotic/Prosthetic Management ,Patient/Caregiver Education, Self-Care/Home Management,Soft Tissue Mobilization,Taping, Therapeutic Activities, Therapeutic Exercises Modalities Cold Pack/Ice Massage,Electric Stimulation,Hot Packs Next Visit Focus/Plan Next Note Type Treatment Note Next Visit Plan rocabado exercises, STM to jaw and work on cranium and C1 and C2
--- NOTE | 2022-12-06 10:41 | PT.OPPOC ---
Physical, Occupational & Speech Therapy At [facility] Current Diagnoses Arthralgia of bilateral temporomandibular joint (12/06/22) Cervicalgia (12/06/22) Abnormal posture (12/06/22) Visit Care Team Role Provider Type Rebeca Muñoz MD Attending Provider Non-Staff Family Provider Primary Care Provider Referring Provider Specialty: Family Practice Address: [address] [place] [address], [id number] Email: Plan Of Care PT-OP-T Assessment and Plan Start: 11/22/22 15:01 Freq: Status: Active Protocol: Document 12/06/22 07:30 [facility] (Rec: 12/06/22 10:41 [facility] [id number]) Physical Therapy Assessment Rehab Potential Rehabilitation Potential Good Evaluation Complexity Number of Personal Factors/Comorbidities 3 or More Number of Body Systems Impaired 4 or More Clinical Presentation at Evaluation Evolving Impairments Impairments Activity Tolerance,Functional Activities,Functional Mobility ,Pain,Posture,ROM,Soft Tissue Mobility Goals pain Short Term Goal (STG) Pt will report no constant jaw pain throughout day. STG Duration 01/22/23 Sporting Goods Sales Manager Goal (LTG) Pt will be able to talk and eat w/o inc jaw pain. LTG Duration 02/28/23 cervical ROM Fci Goal (LTG) Pt will have full cervical ROM w/o inc pain in order to allow pt to do typical ADLs w/ o inc pain. LTG Duration 02/28/23 jaw opening Short Term Goal (STG) Pt will be able to open jaw at least 33 mm STG Duration 01/27/23 Sporting Goods Sales Manager Goal (LTG) Pt will be able to open jaw at least 40 mm w/o pain and w/o deviation. LTG Duration 02/28/23 Assessment Summary Assessment Pt presents w/L jaw pain that radiates to inf manible, teeth and into L neck to shoulder and R upper cervical. This started after her catact surgery 6 months ago. She has tried work w/LMT, DO and seen dentists. She has had soem progress w/massage and DO work but does still have constant pain in L jaw. She cannot brush her teeth w/electric toothbrush d/t the pain and has pain if she chews on the L side and even notes pain w/R sided chewing in L jaw. She has shearing at TMJ and upper cervical dysfunctions that are likely causing these c/o pain . D/t pt severity of pain, trigeminal neuralgia is also a possible diagnosis. Pt would benefit from skilled PT to work on upper thoracic, ribcage, cervical and jaw mehcanics to improved posture and allow pt to dec pain in neck and jaw and return to eating and other activities w/ o inc pain. Physical Therapy Plan Frequency and Duration Duration of treatment (weeks) 12 Plan of Care Start Date 12/06/22 Plan of Care End Date 02/28/23 Therapeutic Interventions Therapeutic Interventions Home Exercise Program,Joint Mobilizations,Manual Therapy, Neuromuscular Re-education, Orthotic/Prosthetic Management ,Patient/Caregiver Education, Self-Care/Home Management,Soft Tissue Mobilization,Taping, Therapeutic Activities, Therapeutic Exercises Modalities Cold Pack/Ice Massage,Electric Stimulation,Hot Packs Next Visit Focus/Plan Next Note Type Treatment Note Next Visit Plan rocabado exercises, STM to jaw and work on cranium and C1 and C2 Plan of Care Dates Plan of Care Start Date 12/06/22 Plan of Care End Date 02/28/23 Electronically Signed by: Diana Cardoza, PT 12/06/22 1041 If you are in agreement with this Plan of Care, please return a signed and dated copy. I have reviewed this Plan of Care and certify that the skilled therapy services above are required to meet the patient?s needs. Physician Signature Date Printed Name and Credentials Clinical Instructor Signature Printed Name and Credentials
--- NOTE | 2022-12-12 13:08 | PT.OTN ---
Current Diagnoses Arthralgia of bilateral temporomandibular joint (12/12/22) Cervicalgia (12/12/22) Abnormal posture (12/12/22) Physical Therapy Treatment Note PT-OP-A Visit Information Start: 11/22/22 15:01 Freq: Status: Active Protocol: Document 12/12/22 12:58 [facility] (Rec: 12/12/22 13:08 [facility] [id number]) Out-Patient Physical Therapy Visit Information Visit Information Visit Type Treatment Note Visit Note 04/14 Visit Start Time 10:54 Visit Stop Time 11:35 Total Visit Minutes 41 Visit Number 2 Number of GRAIN PICKER Visits 0 PT-OP-B Current Condition Start: 11/22/22 15:01 Freq: Status: Active Protocol: Document 12/06/22 07:30 [facility] (Rec: 12/06/22 10:41 [facility] [id number]) Current Condition History of Current Condition Onset Date 6 months ago Current Complaints L TMJ History of Current Condition Pt has been seeing a DO that does craniosacral and it was helping but she hit a wall that was helping the pain any more. She went to [facility] and was considering mm relaxors. It was in L jaw and radiated down mandible and into teeth. It would also radiate down L side of neck and upper cervical of R neck. For months it was constant, and 2 days ago she went to this lady recommended by a friend. She did craniosacral and some myofascial release along the jaw and they made a good amount of progress in the session. At this moment, she feels it but it is no longer screaming at her. She had cataract surgery on L eye and right after that she had pain after. She is having trouble with the eye. She was supposed to not have to wear glasses and still has to and there is just a tug to her L lat eye and there is a viscous watering. L eye is also painful. It feels sore. Pain inc w/eating and had to do soft foods only. She eats mostly on R. The electric toothbrush hurts teeth. sometimes just moving around irritates it. It is now in the lower jaw. The vibration of talking irritates that. Denies DOMINGUEZ. Typically no dizziness or lightheadeness but the other day. She just got up out of bed and was dizzy and was careful and it went away quickly. Has not had it sense. Treatment Goals Patient/Caregiver Goals dec jaw pain, eat w/o pain, no constant pain PT-OP-C Subjective Start: 11/22/22 15:01 Freq: Status: Active Protocol: Document 12/12/22 12:58 [facility] (Rec: 12/12/22 13:08 [facility] [id number]) OP-PT Subjective Patient Comments Patient Comments Pt reports compliance w/ exercises. Still has pain in teeth d/t vibration of talking PT-OP-F Manual Assessment Start: 11/22/22 15:01 Freq: Status: Active Protocol: Document 12/06/22 07:30 [facility] (Rec: 12/06/22 10:41 [facility] [id number]) Manual Assessments Soft Tissue Assessment Soft Tissue Mobility Assessment tightness on L masseter, temporalis, B digastric & pterygoids, L>R scalenes, B SCM, L>R cervical paraspinals Joint Mobility Assessment Joint Mobility Assessment L 1st rib elevated, L shear of C1 and 2 and R rot PT-OP-K Range of Motion Start: 11/22/22 15:01 Freq: Status: Active Protocol: Document 12/06/22 07:30 [facility] (Rec: 12/06/22 10:41 [facility] [id number]) Cervical Spine Range of Motion Cervical Spine Active Degrees Flexion 71 Extension 42 Rotation Left 72 Rotation Right 72 Lateral Flexion Left 21 Lateral Flexion Right 31 Comments mild pain w/flex; contra tightness w/SB TMJ Range of Motion Jaw Openning Jaw Openning (mm) 24 Comments Comments deviates w/C curve to R then L ; signfiicant ant shear of L TMJ; w/closing L side teeth hit first; w/closing L TMJ glides post PT-OP-L Special Tests Start: 11/22/22 15:01 Freq: Status: Active Protocol: Document 12/06/22 07:30 [facility] (Rec: 12/06/22 10:41 [facility] [id number]) Special Tests Cervical Spine Special Tests Traction Test Results neg arterial screening Comments carotid and heart ausciltation : WNL Spurling's Test Test Results neg Other Special Tests Special Tests BP:120/73 PT-OP-Q Treatments Start: 11/22/22 15:01 Freq: Status: Active Protocol: Document 12/12/22 12:58 [facility] (Rec: 12/12/22 13:08 [facility] [id number]) Therapeutic Exercises Sitting Exercises scap set Sitting Exercise Name shrug up and retract Side bilateral Reps/Minutes 10 Comments cues for no Tl junction ext axial elongation Reps/Minutes 10 Comments cues for post elongation and upper cervical chin tuck only jaw opening Sitting Exercise Name opening w/tongue on soft palette Reps/Minutes 5 Manual Therapy Treatment Soft Tissue Mobilization cervical Body Location SO Mobilization Type Sustained Pressure Intensity/Depth Moderate Body Position Supine Comments w/eye movements jaw Body Location temporalis L>R Mobilization Type Sustained Pressure Intensity/Depth Moderate Body Position Supine cranial fascia Body Location B Mobilization Type Myofascial Release Intensity/Depth Superficial Body Position Supine Comments w/eye movements Joint Mobilizations cranium Reps/Duration use of eye movements, LTR, B UE abd, R sciatic n glide Comments 1. spehnobasilar decompression B FM 2. occiput post R>L FM 3. inf glide occiput L>R FM 4. frontal bone L>R ant FM PT-OP-T Assessment and Plan Start: 11/22/22 15:01 Freq: Status: Active Protocol: Document 12/12/22 12:58 [facility] (Rec: 12/12/22 13:08 [facility] [id number]) Physical Therapy Assessment Goals pain Short Term Goal (STG) Pt will report no constant jaw pain throughout day. STG Duration 01/22/23 Mcfp Goal (LTG) Pt will be able to talk and eat w/o inc jaw pain. LTG Duration 02/28/23 cervical ROM Lens Gauger Goal (LTG) Pt will have full cervical ROM w/o inc pain in order to allow pt to do typical ADLs w/ o inc pain. LTG Duration 02/28/23 jaw opening Short Term Goal (STG) Pt will be able to open jaw at least 33 mm STG Duration 01/27/23 Lens Gauger Goal (LTG) Pt will be able to open jaw at least 40 mm w/o pain and w/o deviation. LTG Duration 02/28/23 Assessment Summary Assessment Pt did well new exercises, but did require cues w/scap set to avoid inc lumbar ext. She has significant tightness around cranium and along jaw which likely contributes to her pain in jaw and teeth. She would benefit from cont PT to work gently on improving cranial, cervical and jaw mobility to dec pain. Physical Therapy Plan Frequency and Duration Duration of treatment (weeks) 12 Plan of Care Start Date 12/06/22 Plan of Care End Date 02/28/23 Next Visit Focus/Plan Next Note Type Treatment Note Next Visit Plan rocabado exercises, STM to jaw and work on cranium and C1 and C2
--- NOTE | 2022-12-14 08:44 | PT.OTN ---
Current Diagnoses Arthralgia of bilateral temporomandibular joint (12/14/22) Cervicalgia (12/14/22) Abnormal posture (12/14/22) Physical Therapy Treatment Note PT-OP-A Visit Information Start: 11/22/22 15:01 Freq: Status: Active Protocol: Document 12/14/22 07:31 [facility] (Rec: 12/14/22 08:44 [facility] [id number]) Out-Patient Physical Therapy Visit Information Visit Information Visit Type Treatment Note Visit Note 05/12 Visit Start Time 07:31 Visit Stop Time 08:14 Total Visit Minutes 43 Visit Number 3 Number of PUBLIC HEALTH Visits 0 PT-OP-B Current Condition Start: 11/22/22 15:01 Freq: Status: Active Protocol: Document 12/06/22 07:30 [facility] (Rec: 12/06/22 10:41 [facility] [id number]) Current Condition History of Current Condition Onset Date 6 months ago Current Complaints L TMJ History of Current Condition Pt has been seeing a DO that does craniosacral and it was helping but she hit a wall that was helping the pain any more. She went to [facility] and was considering mm relaxors. It was in L jaw and radiated down mandible and into teeth. It would also radiate down L side of neck and upper cervical of R neck. For months it was constant, and 2 days ago she went to this lady recommended by a friend. She did craniosacral and some myofascial release along the jaw and they made a good amount of progress in the session. At this moment, she feels it but it is no longer screaming at her. She had cataract surgery on L eye and right after that she had pain after. She is having trouble with the eye. She was supposed to not have to wear glasses and still has to and there is just a tug to her L lat eye and there is a viscous watering. L eye is also painful. It feels sore. Pain inc w/eating and had to do soft foods only. She eats mostly on R. The electric toothbrush hurts teeth. sometimes just moving around irritates it. It is now in the lower jaw. The vibration of talking irritates that. Denies DOMINGUEZ. Typically no dizziness or lightheadeness but the other day. She just got up out of bed and was dizzy and was careful and it went away quickly. Has not had it sense. Treatment Goals Patient/Caregiver Goals dec jaw pain, eat w/o pain, no constant pain PT-OP-C Subjective Start: 11/22/22 15:01 Freq: Status: Active Protocol: Document 12/14/22 07:31 [facility] (Rec: 12/14/22 08:44 [facility] [id number]) OP-PT Subjective Patient Comments Patient Comments Pt reports she feels better. She realized she went into fwd protraction a lot at work and tried to fix that whcih she feels like is helpful Patient Reported Progress Improving PT-OP-F Manual Assessment Start: 11/22/22 15:01 Freq: Status: Active Protocol: Document 12/06/22 07:30 [facility] (Rec: 12/06/22 10:41 [facility] [id number]) Manual Assessments Soft Tissue Assessment Soft Tissue Mobility Assessment tightness on L masseter, temporalis, B digastric & pterygoids, L>R scalenes, B SCM, L>R cervical paraspinals Joint Mobility Assessment Joint Mobility Assessment L 1st rib elevated, L shear of C1 and 2 and R rot PT-OP-K Range of Motion Start: 11/22/22 15:01 Freq: Status: Active Protocol: Document 12/06/22 07:30 [facility] (Rec: 12/06/22 10:41 [facility] [id number]) Cervical Spine Range of Motion Cervical Spine Active Degrees Flexion 71 Extension 42 Rotation Left 72 Rotation Right 72 Lateral Flexion Left 21 Lateral Flexion Right 31 Comments mild pain w/flex; contra tightness w/SB TMJ Range of Motion Jaw Openning Jaw Openning (mm) 24 Comments Comments deviates w/C curve to R then L ; signfiicant ant shear of L TMJ; w/closing L side teeth hit first; w/closing L TMJ glides post PT-OP-L Special Tests Start: 11/22/22 15:01 Freq: Status: Active Protocol: Document 12/06/22 07:30 [facility] (Rec: 12/06/22 10:41 [facility] [id number]) Special Tests Cervical Spine Special Tests Traction Test Results neg arterial screening Comments carotid and heart ausciltation : WNL Spurling's Test Test Results neg Other Special Tests Special Tests BP:120/73 PT-OP-Q Treatments Start: 11/22/22 15:01 Freq: Status: Active Protocol: Document 12/14/22 07:31 [facility] (Rec: 12/14/22 08:44 [facility] [id number]) Therapeutic Activity Therapeutic Activity sitting Reps/Minutes 9 min Comments 1. seated posture and neutral neck position 2. hip hinge w/dowel seated focus neutral neck and spine Manual Therapy Treatment Soft Tissue Mobilization cervical Body Location SO & SCM Mobilization Type Sustained Pressure Intensity/Depth Moderate Body Position Supine Comments w/eye movements and breathing Joint Mobilizations cervical Comments C1 gapping & L to R FM cranium Reps/Duration use of eye movements, LTR, B UE abd, R sciatic n glide Comments 1.temporal inf and AP B 2. sagital suture lat FM 3. parietal ant R 4. zygomatic L inf FM 5. sphenoid L to R FM PT-OP-T Assessment and Plan Start: 11/22/22 15:01 Freq: Status: Active Protocol: Document 12/14/22 07:31 [facility] (Rec: 12/14/22 08:44 [facility] [id number]) Physical Therapy Assessment Goals pain Short Term Goal (STG) Pt will report no constant jaw pain throughout day. STG Duration 01/22/23 Fpc Goal (LTG) Pt will be able to talk and eat w/o inc jaw pain. LTG Duration 02/28/23 cervical ROM Curb Machine Operator Goal (LTG) Pt will have full cervical ROM w/o inc pain in order to allow pt to do typical ADLs w/ o inc pain. LTG Duration 02/28/23 jaw opening Short Term Goal (STG) Pt will be able to open jaw at least 33 mm STG Duration 01/27/23 Curb Machine Operator Goal (LTG) Pt will be able to open jaw at least 40 mm w/o pain and w/o deviation. LTG Duration 02/28/23 Assessment Summary Assessment Pt improving jaw opening w/ less deviation and is noting overall feeling better. She required cues for neutral neck position and worked on awareness of this while at desk Physical Therapy Plan Frequency and Duration Duration of treatment (weeks) 12 Plan of Care Start Date 12/06/22 Plan of Care End Date 02/28/23 Next Visit Focus/Plan Next Note Type Treatment Note Next Visit Plan rocabado exercises, STM to jaw and work on C1 and C2
--- NOTE | 2022-12-19 17:46 | PT.OTN ---
Current Diagnoses Arthralgia of bilateral temporomandibular joint (12/19/22) Cervicalgia (12/19/22) Abnormal posture (12/19/22) Physical Therapy Treatment Note PT-OP-A Visit Information Start: 11/22/22 15:01 Freq: Status: Active Protocol: Document 12/19/22 14:17 [facility] (Rec: 12/19/22 17:46 [facility] [id number]) Out-Patient Physical Therapy Visit Information Visit Information Visit Type Treatment Note Visit Note 06/12 Visit Start Time 14:17 Visit Stop Time 15:00 Total Visit Minutes 43 Visit Number 4 Number of MEDICAL TECHNICAL WRITER Visits 0 PT-OP-B Current Condition Start: 11/22/22 15:01 Freq: Status: Active Protocol: Document 12/06/22 07:30 [facility] (Rec: 12/06/22 10:41 [facility] [id number]) Current Condition History of Current Condition Onset Date 6 months ago Current Complaints L TMJ History of Current Condition Pt has been seeing a DO that does craniosacral and it was helping but she hit a wall that was helping the pain any more. She went to [facility] and was considering mm relaxors. It was in L jaw and radiated down mandible and into teeth. It would also radiate down L side of neck and upper cervical of R neck. For months it was constant, and 2 days ago she went to this lady recommended by a friend. She did craniosacral and some myofascial release along the jaw and they made a good amount of progress in the session. At this moment, she feels it but it is no longer screaming at her. She had cataract surgery on L eye and right after that she had pain after. She is having trouble with the eye. She was supposed to not have to wear glasses and still has to and there is just a tug to her L lat eye and there is a viscous watering. L eye is also painful. It feels sore. Pain inc w/eating and had to do soft foods only. She eats mostly on R. The electric toothbrush hurts teeth. sometimes just moving around irritates it. It is now in the lower jaw. The vibration of talking irritates that. Denies DOMINGUEZ. Typically no dizziness or lightheadeness but the other day. She just got up out of bed and was dizzy and was careful and it went away quickly. Has not had it sense. Treatment Goals Patient/Caregiver Goals dec jaw pain, eat w/o pain, no constant pain PT-OP-C Subjective Start: 11/22/22 15:01 Freq: Status: Active Protocol: Document 12/19/22 14:17 [facility] (Rec: 12/19/22 17:46 [facility] [id number]) OP-PT Subjective Patient Comments Patient Comments Pt reports jaw feels little better. Notes she wishes her teeth would feel better PT-OP-F Manual Assessment Start: 11/22/22 15:01 Freq: Status: Active Protocol: Document 12/06/22 07:30 [facility] (Rec: 12/06/22 10:41 [facility] [id number]) Manual Assessments Soft Tissue Assessment Soft Tissue Mobility Assessment tightness on L masseter, temporalis, B digastric & pterygoids, L>R scalenes, B SCM, L>R cervical paraspinals Joint Mobility Assessment Joint Mobility Assessment L 1st rib elevated, L shear of C1 and 2 and R rot PT-OP-K Range of Motion Start: 11/22/22 15:01 Freq: Status: Active Protocol: Document 12/06/22 07:30 [facility] (Rec: 12/06/22 10:41 [facility] [id number]) Cervical Spine Range of Motion Cervical Spine Active Degrees Flexion 71 Extension 42 Rotation Left 72 Rotation Right 72 Lateral Flexion Left 21 Lateral Flexion Right 31 Comments mild pain w/flex; contra tightness w/SB TMJ Range of Motion Jaw Openning Jaw Openning (mm) 24 Comments Comments deviates w/C curve to R then L ; signfiicant ant shear of L TMJ; w/closing L side teeth hit first; w/closing L TMJ glides post PT-OP-L Special Tests Start: 11/22/22 15:01 Freq: Status: Active Protocol: Document 12/06/22 07:30 [facility] (Rec: 12/06/22 10:41 [facility] [id number]) Special Tests Cervical Spine Special Tests Traction Test Results neg arterial screening Comments carotid and heart ausciltation : WNL Spurling's Test Test Results neg Other Special Tests Special Tests BP:120/73 PT-OP-Q Treatments Start: 11/22/22 15:01 Freq: Status: Active Protocol: Document 12/19/22 14:17 [facility] (Rec: 12/19/22 17:46 [facility] [id number]) Manual Therapy Treatment Soft Tissue Mobilization cervical Body Location SO & SCM & scalenes Mobilization Type Sustained Pressure Intensity/Depth Moderate Body Position Supine Comments w/eye movements and breathing Joint Mobilizations jaw Comments AP B FM w/opening 2. PA R FM w/closing 3. distraction L>R grade II FM cervical Comments C1 and 2 L transverse FM & UPA L FM PT-OP-T Assessment and Plan Start: 11/22/22 15:01 Freq: Status: Active Protocol: Document 12/19/22 14:17 [facility] (Rec: 12/19/22 17:46 [facility] [id number]) Physical Therapy Assessment Goals pain Short Term Goal (STG) Pt will report no constant jaw pain throughout day. STG Duration 01/22/23 [facility] Goal (LTG) Pt will be able to talk and eat w/o inc jaw pain. LTG Duration 02/28/23 cervical ROM [facility] Goal (LTG) Pt will have full cervical ROM w/o inc pain in order to allow pt to do typical ADLs w/ o inc pain. LTG Duration 02/28/23 jaw opening Short Term Goal (STG) Pt will be able to open jaw at least 33 mm STG Duration 01/27/23 [facility] Goal (LTG) Pt will be able to open jaw at least 40 mm w/o pain and w/o deviation. LTG Duration 02/28/23 Assessment Summary Assessment Pt had improved upper cervical mobility w/manual treatment. She does have tension throguhout jaw some more on L (masseter & lat pterygoid) and some more on R (med pterygoid & digastric). She had imrpoved opening w/less protrusion w/treatment Physical Therapy Plan Frequency and Duration Duration of treatment (weeks) 12 Plan of Care Start Date 12/06/22 Plan of Care End Date 02/28/23 Next Visit Focus/Plan Next Note Type Treatment Note Next Visit Plan rocabado exercises, STM to jaw and work on C1 and C2
--- NOTE | 2022-12-22 09:45 | PT.OTN ---
Current Diagnoses Arthralgia of bilateral temporomandibular joint (12/22/22) Cervicalgia (12/22/22) Abnormal posture (12/22/22) Physical Therapy Treatment Note PT-OP-A Visit Information Start: 11/22/22 15:01 Freq: Status: Active Protocol: Document 12/22/22 09:03 [facility] (Rec: 12/22/22 10:01 [facility] [id number]) Out-Patient Physical Therapy Visit Information Visit Information Visit Type Treatment Note Visit Note 07/12 Visit Start Time 09:03 Visit Stop Time 09:45 Total Visit Minutes 42 Visit Number 5 Number of SQUARE CUTTER Visits 1 PT-OP-B Current Condition Start: 11/22/22 15:01 Freq: Status: Active Protocol: Document 12/06/22 07:30 [facility] (Rec: 12/06/22 10:41 [facility] [id number]) Current Condition History of Current Condition Onset Date 6 months ago Current Complaints L TMJ History of Current Condition Pt has been seeing a DO that does craniosacral and it was helping but she hit a wall that was helping the pain any more. She went to [facility] and was considering mm relaxors. It was in L jaw and radiated down mandible and into teeth. It would also radiate down L side of neck and upper cervical of R neck. For months it was constant, and 2 days ago she went to this lady recommended by a friend. She did craniosacral and some myofascial release along the jaw and they made a good amount of progress in the session. At this moment, she feels it but it is no longer screaming at her. She had cataract surgery on L eye and right after that she had pain after. She is having trouble with the eye. She was supposed to not have to wear glasses and still has to and there is just a tug to her L lat eye and there is a viscous watering. L eye is also painful. It feels sore. Pain inc w/eating and had to do soft foods only. She eats mostly on R. The electric toothbrush hurts teeth. sometimes just moving around irritates it. It is now in the lower jaw. The vibration of talking irritates that. Denies DOMINGUEZ. Typically no dizziness or lightheadeness but the other day. She just got up out of bed and was dizzy and was careful and it went away quickly. Has not had it sense. Treatment Goals Patient/Caregiver Goals dec jaw pain, eat w/o pain, no constant pain PT-OP-C Subjective Start: 11/22/22 15:01 Freq: Status: Active Protocol: Document 12/22/22 09:03 [facility] (Rec: 12/22/22 10:01 [facility] [id number]) OP-PT Subjective Patient Comments Patient Comments Pt reports noticing today, little better less tingling of teeth mostly L than R, but feel foggy in L ear. PT-OP-F Manual Assessment Start: 11/22/22 15:01 Freq: Status: Active Protocol: Document 12/06/22 07:30 [facility] (Rec: 12/06/22 10:41 [facility] [id number]) Manual Assessments Soft Tissue Assessment Soft Tissue Mobility Assessment tightness on L masseter, temporalis, B digastric & pterygoids, L>R scalenes, B SCM, L>R cervical paraspinals Joint Mobility Assessment Joint Mobility Assessment L 1st rib elevated, L shear of C1 and 2 and R rot PT-OP-K Range of Motion Start: 11/22/22 15:01 Freq: Status: Active Protocol: Document 12/06/22 07:30 [facility] (Rec: 12/06/22 10:41 [facility] [id number]) Cervical Spine Range of Motion Cervical Spine Active Degrees Flexion 71 Extension 42 Rotation Left 72 Rotation Right 72 Lateral Flexion Left 21 Lateral Flexion Right 31 Comments mild pain w/flex; contra tightness w/SB TMJ Range of Motion Jaw Openning Jaw Openning (mm) 24 Comments Comments deviates w/C curve to R then L ; signfiicant ant shear of L TMJ; w/closing L side teeth hit first; w/closing L TMJ glides post PT-OP-L Special Tests Start: 11/22/22 15:01 Freq: Status: Active Protocol: Document 12/06/22 07:30 [facility] (Rec: 12/06/22 10:41 [facility] [id number]) Special Tests Cervical Spine Special Tests Traction Test Results neg arterial screening Comments carotid and heart ausciltation : WNL Spurling's Test Test Results neg Other Special Tests Special Tests BP:120/73 PT-OP-Q Treatments Start: 11/22/22 15:01 Freq: Status: Active Protocol: Document 12/22/22 09:03 [facility] (Rec: 12/22/22 10:01 [facility] [id number]) Therapeutic Exercises Sitting Exercises scap set Sitting Exercise Name shrug up and retract Side bilateral Reps/Minutes 10 Comments cues for no Tl junction ext axial elongation Reps/Minutes 10 Comments cues for post elongation and upper cervical chin tuck only Manual Therapy Treatment Soft Tissue Mobilization cervical Body Location SOR & SCM & scalenes Mobilization Type Sustained Pressure Intensity/Depth Moderate Body Position Supine Comments w/eye movements and breathing jaw Body Location temporalis L>R, masseter, Med Pterygoid (intraoral) Mobilization Type Myofascial Release,Sustained Pressure Intensity/Depth Moderate Body Position Hooklying Comments L>R sensitivity cranial fascia Body Location B Mobilization Type Myofascial Release Intensity/Depth Superficial Body Position Supine Comments w/eye movements Joint Mobilizations CranialSacral Therapy Direction decompression intention directioning Body Position Hooklying Comments 1. parietal 2. sphenoid 3. frontal 4. mandible 5. still point 6. cranium Reps/Duration use of eye movements, LTR, B UE abd, R sciatic n glide Comments 1.temporal inf and AP B 2. sagital suture lat FM 3. parietal ant R 4. zygomatic L inf FM 5. sphenoid L to R FM Self-Care/Home Management Treatment Education Other Education Time spent education anatomy, TOOLMAKER and self application on self STMs: SCM and review postural alignment at computer . Next initiated theracane for self STMs MWM head nods posterior neck and ball wall post scap/UT for tension releases. PT-OP-T Assessment and Plan Start: 11/22/22 15:01 Freq: Status: Active Protocol: Document 12/22/22 09:03 [facility] (Rec: 12/22/22 10:01 SP [id number]) Physical Therapy Assessment Goals pain Short Term Goal (STG) Pt will report no constant jaw pain throughout day. STG Duration 01/22/23 Vinyl Top Installer Goal (LTG) Pt will be able to talk and eat w/o inc jaw pain. LTG Duration 02/28/23 cervical ROM Vinyl Top Installer Goal (LTG) Pt will have full cervical ROM w/o inc pain in order to allow pt to do typical ADLs w/ o inc pain. LTG Duration 02/28/23 jaw opening Short Term Goal (STG) Pt will be able to open jaw at least 33 mm STG Duration 01/27/23 Vinyl Top Installer Goal (LTG) Pt will be able to open jaw at least 40 mm w/o pain and w/o deviation. LTG Duration 02/28/23 Assessment Summary Assessment Pt provided feedback on comfort pressure during intraoral jaw muscular massage , provided instruction for self application for lessening muscular tension. Pt reported muscles felt looser post manual but sore and will probably use ice when got home . Reviewed HEP given last tx. WIll progress TMJ HEP next tx if tolerated. Ed given for awareness of head and postural alignment during ADLs for decreased back neck and jaw tension. Physical Therapy Plan Frequency and Duration Duration of treatment (weeks) 12 Plan of Care Start Date 12/06/22 Plan of Care End Date 02/28/23 Therapeutic Interventions Therapeutic Interventions Home Exercise Program,Joint Mobilizations,Manual Therapy, Neuromuscular Re-education, Orthotic/Prosthetic Management ,Patient/Caregiver Education, Self-Care/Home Management,Soft Tissue Mobilization,Taping, Therapeutic Activities, Therapeutic Exercises Modalities Cold Pack/Ice Massage,Electric Stimulation,Hot Packs Next Visit Focus/Plan Next Note Type Treatment Note Next Visit Plan Ask response to manual last tx . POC: Review rocabado exercises , STM to jaw and work on C1 and C2
--- NOTE | 2022-12-26 12:08 | PT.OTN ---
Current Diagnoses Arthralgia of bilateral temporomandibular joint (12/26/22) Cervicalgia (12/26/22) Abnormal posture (12/26/22) Physical Therapy Treatment Note PT-OP-A Visit Information Start: 11/22/22 15:01 Freq: Status: Active Protocol: Document 12/26/22 10:05 [facility] (Rec: 12/26/22 12:08 [facility] [id number]) Out-Patient Physical Therapy Visit Information Visit Information Visit Type Treatment Note Visit Note 08/12 Student PT Ann Loyola participated in treatment session w/PT direct supervision and direction Visit Start Time 10:05 Visit Stop Time 10:46 Total Visit Minutes 41 Visit Number 6 Number of GENERAL TELLER Visits 0 PT-OP-B Current Condition Start: 11/22/22 15:01 Freq: Status: Active Protocol: Document 12/06/22 07:30 [facility] (Rec: 12/06/22 10:41 [facility] [id number]) Current Condition History of Current Condition Onset Date 6 months ago Current Complaints L TMJ History of Current Condition Pt has been seeing a DO that does craniosacral and it was helping but she hit a wall that was helping the pain any more. She went to [facility] and was considering mm relaxors. It was in L jaw and radiated down mandible and into teeth. It would also radiate down L side of neck and upper cervical of R neck. For months it was constant, and 2 days ago she went to this lady recommended by a friend. She did craniosacral and some myofascial release along the jaw and they made a good amount of progress in the session. At this moment, she feels it but it is no longer screaming at her. She had cataract surgery on L eye and right after that she had pain after. She is having trouble with the eye. She was supposed to not have to wear glasses and still has to and there is just a tug to her L lat eye and there is a viscous watering. L eye is also painful. It feels sore. Pain inc w/eating and had to do soft foods only. She eats mostly on R. The electric toothbrush hurts teeth. sometimes just moving around irritates it. It is now in the lower jaw. The vibration of talking irritates that. Denies DOMINGUEZ. Typically no dizziness or lightheadeness but the other day. She just got up out of bed and was dizzy and was careful and it went away quickly. Has not had it sense. Treatment Goals Patient/Caregiver Goals dec jaw pain, eat w/o pain, no constant pain PT-OP-C Subjective Start: 11/22/22 15:01 Freq: Status: Active Protocol: Document 12/26/22 10:05 [facility] (Rec: 12/26/22 12:08 [facility] [id number]) OP-PT Subjective Patient Comments Patient Comments Pt drove a lot yesterday but woke up w/DOMINGUEZ today. She typically doenst get them. Its L lat post head. She feels like things are improve a little bit. The buzzing of the teeth is a litle better but every now and then it flares up. She [facility]. Patient Reported Progress Improving PT-OP-F Manual Assessment Start: 11/22/22 15:01 Freq: Status: Active Protocol: Document 12/06/22 07:30 [facility] (Rec: 12/06/22 10:41 [facility] [id number]) Manual Assessments Soft Tissue Assessment Soft Tissue Mobility Assessment tightness on L masseter, temporalis, B digastric & pterygoids, L>R scalenes, B SCM, L>R cervical paraspinals Joint Mobility Assessment Joint Mobility Assessment L 1st rib elevated, L shear of C1 and 2 and R rot PT-OP-K Range of Motion Start: 11/22/22 15:01 Freq: Status: Active Protocol: Document 12/06/22 07:30 [facility] (Rec: 12/06/22 10:41 [facility] [id number]) Cervical Spine Range of Motion Cervical Spine Active Degrees Flexion 71 Extension 42 Rotation Left 72 Rotation Right 72 Lateral Flexion Left 21 Lateral Flexion Right 31 Comments mild pain w/flex; contra tightness w/SB TMJ Range of Motion Jaw Openning Jaw Openning (mm) 24 Comments Comments deviates w/C curve to R then L ; signfiicant ant shear of L TMJ; w/closing L side teeth hit first; w/closing L TMJ glides post PT-OP-L Special Tests Start: 11/22/22 15:01 Freq: Status: Active Protocol: Document 12/06/22 07:30 [facility] (Rec: 12[facility]06/22 10[id number] Special Tests Cervical Spine Special Tests Traction Test Results neg arterial screening Comments carotid and heart ausciltation : WNL Spurling's Test Test Results neg Other Special Tests Special Tests BP:120/73 PT-OP-Q Treatments Start: 11/22/22 15:01 Freq: Status: Active Protocol: Document 12/26/22 10:05 [facility] (Rec: 12/26/22 12:08 [facility] [id number]) Manual Therapy Treatment Soft Tissue Mobilization cervical Body Location SOR & SCM & scalenes Mobilization Type Sustained Pressure Intensity/Depth Moderate Body Position Supine Comments w/eye movements and breathing & head turns & chin tuck jaw Body Location temporalis L>R, masseter, Med pterygoid, digastric Mobilization Type Myofascial Release,Sustained Pressure Intensity/Depth Moderate Body Position Hooklying Comments L>R sensitivity cranial fascia Body Location B Mobilization Type Myofascial Release Intensity/Depth Superficial Body Position Supine Joint Mobilizations jaw Comments 1. AP B FM w/opening 2. distraction L>R grade II FM cervical Comments C1 tranverse R and UPA B FM cranium Comments L temporal post rot FM PT-OP-T Assessment and Plan Start: 11/22/22 15:01 Freq: Status: Active Protocol: Document 12/26/22 10:05 [facility] (Rec: 12/26/22 12:08 [facility] [id number]) Physical Therapy Assessment Goals pain Short Term Goal (STG) Pt will report no constant jaw pain throughout day. STG Duration 01/22/23 Mcfp Goal (LTG) Pt will be able to talk and eat w/o inc jaw pain. LTG Duration 02/28/23 cervical ROM Hand Pattern Marker Goal (LTG) Pt will have full cervical ROM w/o inc pain in order to allow pt to do typical ADLs w/ o inc pain. LTG Duration 02/28/23 jaw opening Short Term Goal (STG) Pt will be able to open jaw at least 33 mm STG Duration 01/27/23 Hand Pattern Marker Goal (LTG) Pt will be able to open jaw at least 40 mm w/o pain and w/o deviation. LTG Duration 02/28/23 Assessment Summary Assessment Pt reports no feelign of DOMINGUEZ after manual treatment. She had imrpoved jaw opening w/ later start to ant shear w/ opening. She has a lot of tenderness at C1 on L side today Physical Therapy Plan Frequency and Duration Duration of treatment (weeks) 12 Plan of Care Start Date 12/06/22 Plan of Care End Date 02/28/23 Next Visit Focus/Plan Next Note Type Treatment Note Next Visit Plan cont to work on jaw and cervical mobility, advance scap and cervical stability
--- NOTE | 2022-12-28 12:13 | PT.OTN ---
Current Diagnoses Arthralgia of bilateral temporomandibular joint (12/28/22) Cervicalgia (12/28/22) Abnormal posture (12/28/22) Physical Therapy Treatment Note PT-OP-A Visit Information Start: 11/22/22 15:01 Freq: Status: Active Protocol: Document 12/28/22 08:57 [facility] (Rec: 12/28/22 12:13 [facility] [id number]) Out-Patient Physical Therapy Visit Information Visit Information Visit Type Treatment Note Visit Note 09/11 Student PT Ann Loyola participated in treatment session w/PT direct supervision and direction Visit Start Time 09:04 Visit Stop Time 09:56 Total Visit Minutes 52 Visit Number 7 Number of SMELTING ENGINEER Visits 0 PT-OP-B Current Condition Start: 11/22/22 15:01 Freq: Status: Active Protocol: Document 12/06/22 07:30 [facility] (Rec: 12/06/22 10:41 [facility] [id number]) Current Condition History of Current Condition Onset Date 6 months ago Current Complaints L TMJ History of Current Condition Pt has been seeing a DO that does craniosacral and it was helping but she hit a wall that was helping the pain any more. She went to [facility] and was considering mm relaxors. It was in L jaw and radiated down mandible and into teeth. It would also radiate down L side of neck and upper cervical of R neck. For months it was constant, and 2 days ago she went to this lady recommended by a friend. She did craniosacral and some myofascial release along the jaw and they made a good amount of progress in the session. At this moment, she feels it but it is no longer screaming at her. She had cataract surgery on L eye and right after that she had pain after. She is having trouble with the eye. She was supposed to not have to wear glasses and still has to and there is just a tug to her L lat eye and there is a viscous watering. L eye is also painful. It feels sore. Pain inc w/eating and had to do soft foods only. She eats mostly on R. The electric toothbrush hurts teeth. sometimes just moving around irritates it. It is now in the lower jaw. The vibration of talking irritates that. Denies DOMINGUEZ. Typically no dizziness or lightheadeness but the other day. She just got up out of bed and was dizzy and was careful and it went away quickly. Has not had it sense. Treatment Goals Patient/Caregiver Goals dec jaw pain, eat w/o pain, no constant pain PT-OP-C Subjective Start: 11/22/22 15:01 Freq: Status: Active Protocol: Document 12/28/22 08:57 [facility] (Rec: 12/28/22 12:13 [facility] [id number]) OP-PT Subjective Patient Comments Patient Comments Pt reports she was sore after last session the rest of the day but was better the next day. 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 Notes she made a plan for her re: moving forward and first is tryin mm relaxors at night. PT-OP-F Manual Assessment Start: 11/22/22 15:01 Freq: Status: Active Protocol: Document 12/06/22 07:30 [facility] (Rec: 12/06/22 10:41 [facility] [id number]) Manual Assessments Soft Tissue Assessment Soft Tissue Mobility Assessment tightness on L masseter, temporalis, B digastric & pterygoids, L>R scalenes, B SCM, L>R cervical paraspinals Joint Mobility Assessment Joint Mobility Assessment L 1st rib elevated, L shear of C1 and 2 and R rot PT-OP-K Range of Motion Start: 11/22/22 15:01 Freq: Status: Active Protocol: Document 12/06/22 07:30 [facility] (Rec: 12/06/22 10:41 [facility] [id number]) Cervical Spine Range of Motion Cervical Spine Active Degrees Flexion 71 Extension 42 Rotation Left 72 Rotation Right 72 Lateral Flexion Left 21 Lateral Flexion Right 31 Comments mild pain w/flex; contra tightness w/SB TMJ Range of Motion Jaw Openning Jaw Openning (mm) 24 Comments Comments deviates w/C curve to R then L ; signfiicant ant shear of L TMJ; w/closing L side teeth hit first; w/closing L TMJ glides post PT-OP-L Special Tests Start: 11/22/22 15:01 Freq: Status: Active Protocol: Document 12/06/22 07:30 [facility] (Rec: 12/06/22 10:41 [facility] [id number]) Special Tests Cervical Spine Special Tests Traction Test Results neg arterial screening Comments carotid and heart ausciltation : WNL Spurling's Test Test Results neg Other Special Tests Special Tests BP:120/73 PT-OP-Q Treatments Start: 11/22/22 15:01 Freq: Status: Active Protocol: Document 12/28/22 08:57 [facility] (Rec: 12/28/22 12:13 [facility] [id number]) Manual Therapy Treatment Soft Tissue Mobilization cervical Body Location SOR & SCM & scalenes Mobilization Type Sustained Pressure Intensity/Depth Moderate Body Position Supine Comments w/eye movements and breathing & head turns & chin tuck jaw Body Location temporalis L>R, masseter,R>L Med pterygoid, digastric Mobilization Type Myofascial Release,Sustained Pressure Intensity/Depth Moderate Body Position Hooklying Comments L>R sensitivity cranial fascia Body Location B Mobilization Type Myofascial Release Intensity/Depth Superficial Body Position Supine Joint Mobilizations jaw Comments 1. AP B FM w/opening cervical Comments C1 & 2 tranverse R and UPA L FM Self-Care/Home Management Treatment Education Other Education 10 min: discussion re: appt w/ dentist and discussed agreement w/no big mouth guard at night as they often inc clenching. Discussed following dentist recommendations and following up w/imaging requested. Discussed further how mm of jaw and upper cervical care w/PT is likely to cont to improve pain. Encouraged ice after sessions PT-OP-T Assessment and Plan Start: 11/22/22 15:01 Freq: Status: Active Protocol: Document 12/28/22 08:57 [facility] (Rec: 12/28/22 12:13 [facility] [id number]) Physical Therapy Assessment Goals pain Short Term Goal (STG) Pt will report no constant jaw pain throughout day. STG Duration 01/22/23 Shake Packer Goal (LTG) Pt will be able to talk and eat w/o inc jaw pain. LTG Duration 02/28/23 cervical ROM Shake Packer Goal (LTG) Pt will have full cervical ROM w/o inc pain in order to allow pt to do typical ADLs w/ o inc pain. LTG Duration 02/28/23 jaw opening Short Term Goal (STG) Pt will be able to open jaw at least 33 mm STG Duration 01/27/23 Shake Packer Goal (LTG) Pt will be able to open jaw at least 40 mm w/o pain and w/o deviation. LTG Duration 02/28/23 Assessment Summary Assessment Pt cont to improve w/upper cervical mobility and positioning w/manual treatment . She does have some restriction at jaw that likely cont to inc her pain Physical Therapy Plan Frequency and Duration Duration of treatment (weeks) 12 Plan of Care Start Date 12/06/22 Plan of Care End Date 02/28/23 Next Visit Focus/Plan Next Note Type Treatment Note Next Visit Plan cont to work on jaw and cervical mobility, advance scap and cervical stability
--- NOTE | 2023-01-02 18:08 | PT.OTN ---
Current Diagnoses Arthralgia of bilateral temporomandibular joint (01/02/23) Cervicalgia (01/02/23) Abnormal posture (01/02/23) Physical Therapy Treatment Note PT-OP-A Visit Information Start: 11/22/22 15:01 Freq: Status: Active Protocol: Document 01/02/23 11:25 [facility] (Rec: 01/02/23 18:08 [facility] [id number]) Out-Patient Physical Therapy Visit Information Visit Information Visit Type Treatment Note Visit Note 10/12 Student PT Ann Loyola participated in treatment session w/PT direct supervision and direction Visit Start Time 09:07 Visit Stop Time 09:57 Total Visit Minutes 50 Visit Number 8 Number of TUBE BACKER Visits 0 PT-OP-B Current Condition Start: 11/22/22 15:01 Freq: Status: Active Protocol: Document 12/06/22 07:30 [facility] (Rec: 12/06/22 10:41 [facility] [id number]) Current Condition History of Current Condition Onset Date 6 months ago Current Complaints L TMJ History of Current Condition Pt has been seeing a DO that does craniosacral and it was helping but she hit a wall that was helping the pain any more. She went to [facility] and was considering mm relaxors. It was in L jaw and radiated down mandible and into teeth. It would also radiate down L side of neck and upper cervical of R neck. For months it was constant, and 2 days ago she went to this lady recommended by a friend. She did craniosacral and some myofascial release along the jaw and they made a good amount of progress in the session. At this moment, she feels it but it is no longer screaming at her. She had cataract surgery on L eye and right after that she had pain after. She is having trouble with the eye. She was supposed to not have to wear glasses and still has to and there is just a tug to her L lat eye and there is a viscous watering. L eye is also painful. It feels sore. Pain inc w/eating and had to do soft foods only. She eats mostly on R. The electric toothbrush hurts teeth. sometimes just moving around irritates it. It is now in the lower jaw. The vibration of talking irritates that. Denies DOMINGUEZ. Typically no dizziness or lightheadeness but the other day. She just got up out of bed and was dizzy and was careful and it went away quickly. Has not had it sense. Treatment Goals Patient/Caregiver Goals dec jaw pain, eat w/o pain, no constant pain PT-OP-C Subjective Start: 11/22/22 15:01 Freq: Status: Active Protocol: Document 01/02/23 11:25 [facility] (Rec: 01/02/23 18:08 [facility] [id number]) OP-PT Subjective Patient Comments Patient Comments Pt reports teeth do seem to be improving. Has another appt at w/MD there. She has been taking mm relaxors and unsur if they are helping PT-OP-F Manual Assessment Start: 11/22/22 15:01 Freq: Status: Active Protocol: Document 12/06/22 07:30 [facility] (Rec: 12/06/22 10:41 [facility] [id number]) Manual Assessments Soft Tissue Assessment Soft Tissue Mobility Assessment tightness on L masseter, temporalis, B digastric & pterygoids, L>R scalenes, B SCM, L>R cervical paraspinals Joint Mobility Assessment Joint Mobility Assessment L 1st rib elevated, L shear of C1 and 2 and R rot PT-OP-K Range of Motion Start: 11/22/22 15:01 Freq: Status: Active Protocol: Document 12/06/22 07:30 [facility] (Rec: 12/06/22 10:41 [facility] [id number]) Cervical Spine Range of Motion Cervical Spine Active Degrees Flexion 71 Extension 42 Rotation Left 72 Rotation Right 72 Lateral Flexion Left 21 Lateral Flexion Right 31 Comments mild pain w/flex; contra tightness w/SB TMJ Range of Motion Jaw Openning Jaw Openning (mm) 24 Comments Comments deviates w/C curve to R then L ; signfiicant ant shear of L TMJ; w/closing L side teeth hit first; w/closing L TMJ glides post PT-OP-L Special Tests Start: 11/22/22 15:01 Freq: Status: Active Protocol: Document 12/06/22 07:30 [facility] (Rec: 12/06/22 10:41 [facility] [id number]) Special Tests Cervical Spine Special Tests Traction Test Results neg arterial screening Comments carotid and heart ausciltation : WNL Spurling's Test Test Results neg Other Special Tests Special Tests BP:120/73 PT-OP-Q Treatments Start: 11/22/22 15:01 Freq: Status: Active Protocol: Document 01/02/23 11:25 [facility] (Rec: 01/02/23 18:08 [facility] [id number]) Manual Therapy Treatment Soft Tissue Mobilization intra-oral Body Location lat ptyergoid Mobilization Type Sustained Pressure Intensity/Depth Moderate Comments w/opening L>R cervical Body Location SOR & SCM & scalenes Mobilization Type Sustained Pressure Intensity/Depth Moderate Body Position Supine Comments w/eye movements and breathing & head turns & chin tuck jaw Body Location temporalis , masseter,R>L Med pterygoid Mobilization Type Myofascial Release,Sustained Pressure Intensity/Depth Moderate Body Position Hooklying Joint Mobilizations jaw Comments 1. AP R>L FM w/opening cervical Comments C1 UAP C1 L FM PT-OP-T Assessment and Plan Start: 11/22/22 15:01 Freq: Status: Active Protocol: Document 01/02/23 11:25 [facility] (Rec: 01/02/23 18:08 [facility] [id number]) Physical Therapy Assessment Goals pain Short Term Goal (STG) Pt will report no constant jaw pain throughout day. STG Duration 01/22/23 Tester Compressed Gases Goal (LTG) Pt will be able to talk and eat w/o inc jaw pain. LTG Duration 02/28/23 cervical ROM Tester Compressed Gases Goal (LTG) Pt will have full cervical ROM w/o inc pain in order to allow pt to do typical ADLs w/ o inc pain. LTG Duration 02/28/23 jaw opening Short Term Goal (STG) Pt will be able to open jaw at least 33 mm STG Duration 01/27/23 Tester Compressed Gases Goal (LTG) Pt will be able to open jaw at least 40 mm w/o pain and w/o deviation. LTG Duration 02/28/23 Assessment Summary Assessment Pt cont to improve w/jaw opening and shows improved motion w/dec deviation and L ant shear but today R sooner than L. She had improved cervical shear position of C1 but still has notable R rot that improved w/manual but still has some restriction. Physical Therapy Plan Frequency and Duration Duration of treatment (weeks) 12 Plan of Care Start Date 12/06/22 Plan of Care End Date 02/28/23 Next Visit Focus/Plan Next Note Type Treatment Note Next Visit Plan cont to work on jaw and cervical mobility, advance scap and cervical stability
--- NOTE | 2023-01-04 12:51 | PT.OTN ---
Current Diagnoses Arthralgia of bilateral temporomandibular joint (01/04/23) Cervicalgia (01/04/23) Abnormal posture (01/04/23) Physical Therapy Treatment Note PT-OP-A Visit Information Start: 11/22/22 15:01 Freq: Status: Active Protocol: Document 01/04/23 12:02 [facility] (Rec: 01/04/23 12:54 [facility] [id number]) Out-Patient Physical Therapy Visit Information Visit Information Visit Type Treatment Note Visit Note 11/12 PN next tx (10th visit) Visit Start Time 12:02 Visit Stop Time 12:51 Total Visit Minutes 49 Visit Number 9 Number of CHARGE OUT CLERK Visits 1 PT-OP-B Current Condition Start: 11/22/22 15:01 Freq: Status: Active Protocol: Document 12/06/22 07:30 [facility] (Rec: 12/06/22 10:41 [facility] [id number]) Current Condition History of Current Condition Onset Date 6 months ago Current Complaints L TMJ History of Current Condition Pt has been seeing a DO that does craniosacral and it was helping but she hit a wall that was helping the pain any more. She went to [facility] and was considering mm relaxors. It was in L jaw and radiated down mandible and into teeth. It would also radiate down L side of neck and upper cervical of R neck. For months it was constant, and 2 days ago she went to this lady recommended by a friend. She did craniosacral and some myofascial release along the jaw and they made a good amount of progress in the session. At this moment, she feels it but it is no longer screaming at her. She had cataract surgery on L eye and right after that she had pain after. She is having trouble with the eye. She was supposed to not have to wear glasses and still has to and there is just a tug to her L lat eye and there is a viscous watering. L eye is also painful. It feels sore. Pain inc w/eating and had to do soft foods only. She eats mostly on R. The electric toothbrush hurts teeth. sometimes just moving around irritates it. It is now in the lower jaw. The vibration of talking irritates that. Denies DOMINGUEZ. Typically no dizziness or lightheadeness but the other day. She just got up out of bed and was dizzy and was careful and it went away quickly. Has not had it sense. Treatment Goals Patient/Caregiver Goals dec jaw pain, eat w/o pain, no constant pain PT-OP-C Subjective Start: 11/22/22 15:01 Freq: Status: Active Protocol: Document 01/04/23 12:02 [facility] (Rec: 01/04/23 12:54 [facility] [id number]) OP-PT Subjective Patient Comments Patient Comments Pt reports has an appt with and unsure if want to have injections: dryneedle, saline, anesthetic vs surgical work. Wanting find another oral surgeon [place] closer. She took some muscle relaxants and found lateral ribcage tightness when woke so really over recruiting. PT-OP-F Manual Assessment Start: 11/22/22 15:01 Freq: Status: Active Protocol: Document 12/06/22 07:30 [facility] (Rec: 12/06/22 10:41 [facility] [id number]) Manual Assessments Soft Tissue Assessment Soft Tissue Mobility Assessment tightness on L masseter, temporalis, B digastric & pterygoids, L>R scalenes, B SCM, L>R cervical paraspinals Joint Mobility Assessment Joint Mobility Assessment L 1st rib elevated, L shear of C1 and 2 and R rot PT-OP-K Range of Motion Start: 11/22/22 15:01 Freq: Status: Active Protocol: Document 12/06/22 07:30 [facility] (Rec: 12/06/22 10:41 [facility] [id number]) Cervical Spine Range of Motion Cervical Spine Active Degrees Flexion 71 Extension 42 Rotation Left 72 Rotation Right 72 Lateral Flexion Left 21 Lateral Flexion Right 31 Comments mild pain w/flex; contra tightness w/SB TMJ Range of Motion Jaw Openning Jaw Openning (mm) 24 Comments Comments deviates w/C curve to R then L ; signfiicant ant shear of L TMJ; w/closing L side teeth hit first; w/closing L TMJ glides post PT-OP-L Special Tests Start: 11/22/22 15:01 Freq: Status: Active Protocol: Document 12/06/22 07:30 [facility] (Rec: 12/06/22 10:41 [facility] [id number]) Special Tests Cervical Spine Special Tests Traction Test Results neg arterial screening Comments carotid and heart ausciltation : WNL Spurling's Test Test Results neg Other Special Tests Special Tests BP:120/73 PT-OP-Q Treatments Start: 11/22/22 15:01 Freq: Status: Active Protocol: Document 01/04/23 12:02 [facility] (Rec: 01/04/23 12:54 [facility] [id number]) Therapeutic Exercises Sitting Exercises snag ext & rotate Sitting Exercise Name B: extension (retraction) & rotation (across zygomatic arch) Resistance towel Reps/Minutes 5SH x5 reps each Comments good feedback deeper neck scap set Sitting Exercise Name shrug up and retract Side bilateral Reps/Minutes 10 Comments cues for no Tl junction ext axial elongation Reps/Minutes 10 Comments cues for post elongation and upper cervical chin tuck only jaw opening Sitting Exercise Name opening w/tongue on soft palette Reps/Minutes 5 Manual Therapy Treatment Soft Tissue Mobilization intra-oral Body Location lat ptyergoid Mobilization Type Sustained Pressure Intensity/Depth Moderate Comments w/opening L>R cervical Body Location SOR & SCM & scalenes Mobilization Type Sustained Pressure Intensity/Depth Moderate Body Position Supine Comments w/eye movements and breathing & head turns & chin tuck jaw Body Location temporalis , masseter,R>L Med pterygoid Mobilization Type Myofascial Release,Sustained Pressure Intensity/Depth Moderate Body Position Hooklying cranial fascia Body Location B Mobilization Type Myofascial Release Intensity/Depth Superficial Body Position Supine Joint Mobilizations CranialSacral Therapy Joint sphenoid, parietal, mandible decompression Grade I Body Position Hooklying Comments very light/ gentle decompression- good relaxing response, I can feel it even down lateral trunk. PT-OP-T Assessment and Plan Start: 11/22/22 15:01 Freq: Status: Active Protocol: Document 01/04/23 12:02 [facility] (Rec: 01/04/23 12:54 [facility] [id number]) Physical Therapy Assessment Goals pain Short Term Goal (STG) Pt will report no constant jaw pain throughout day. STG Duration 01/22/23 Mcfp Goal (LTG) Pt will be able to talk and eat w/o inc jaw pain. LTG Duration 02/28/23 cervical ROM Mcfp Goal (LTG) Pt will have full cervical ROM w/o inc pain in order to allow pt to do typical ADLs w/ o inc pain. LTG Duration 02/28/23 jaw opening Short Term Goal (STG) Pt will be able to open jaw at least 33 mm STG Duration 01/27/23 Television Writer Goal (LTG) Pt will be able to open jaw at least 40 mm w/o pain and w/o deviation. LTG Duration 02/28/23 Assessment Summary Assessment Pt responded well to manual, reports good releases L masseter&medial pterygoid, R medial pterygoid sensitive but good sensitive needed. Encouraged self application at home. Added SNAGs extension and rotation with good demonstration back with reported good gentle deeper stretch, I will definitely do this at home. Physical Therapy Plan Frequency and Duration Duration of treatment (weeks) 12 Plan of Care Start Date 12/06/22 Plan of Care End Date 02/28/23 Therapeutic Interventions Therapeutic Interventions Home Exercise Program,Joint Mobilizations,Manual Therapy, Neuromuscular Re-education, Orthotic/Prosthetic Management ,Patient/Caregiver Education, Self-Care/Home Management,Soft Tissue Mobilization,Taping, Therapeutic Activities, Therapeutic Exercises Modalities Cold Pack/Ice Massage,Electric Stimulation,Hot Packs Next Visit Focus/Plan Next Note Type Treatment Note Next Visit Plan * PN next tx (10th visit), check KX Modifier in 2 tx. REcheck SNAGS, add scapular ROM over foam roller, open book. POC: cont to work on jaw and cervical mobility, advance scap and cervical stability
--- NOTE | 2023-01-09 17:05 | PT.OTN ---
Current Diagnoses Arthralgia of bilateral temporomandibular joint (01/09/23) Cervicalgia (01/09/23) Abnormal posture (01/09/23) Physical Therapy Treatment Note PT-OP-A Visit Information Start: 11/22/22 15:01 Freq: Status: Active Protocol: Document 01/09/23 10:06 [facility] (Rec: 01/09/23 17:04 [facility] [id number]) Out-Patient Physical Therapy Visit Information Visit Information Visit Type Progress Note Visit Note 03/14 Student PT Ann Loyola participated in treatment session w/PT direct supervision and direction Visit Start Time 10:01 Visit Stop Time 10:55 Total Visit Minutes 54 Visit Number 10 Number of DESIGN VERIFICATION ENGINEER Visits 0 PT-OP-B Current Condition Start: 11/22/22 15:01 Freq: Status: Active Protocol: Document 12/06/22 07:30 [facility] (Rec: 12/06/22 10:41 [facility] [id number]) Current Condition History of Current Condition Onset Date 6 months ago Current Complaints L TMJ History of Current Condition Pt has been seeing a DO that does craniosacral and it was helping but she hit a wall that was helping the pain any more. She went to [facility] and was considering mm relaxors. It was in L jaw and radiated down mandible and into teeth. It would also radiate down L side of neck and upper cervical of R neck. For months it was constant, and 2 days ago she went to this lady recommended by a friend. She did craniosacral and some myofascial release along the jaw and they made a good amount of progress in the session. At this moment, she feels it but it is no longer screaming at her. She had cataract surgery on L eye and right after that she had pain after. She is having trouble with the eye. She was supposed to not have to wear glasses and still has to and there is just a tug to her L lat eye and there is a viscous watering. L eye is also painful. It feels sore. Pain inc w/eating and had to do soft foods only. She eats mostly on R. The electric toothbrush hurts teeth. sometimes just moving around irritates it. It is now in the lower jaw. The vibration of talking irritates that. Denies DOMINGUEZ. Typically no dizziness or lightheadeness but the other day. She just got up out of bed and was dizzy and was careful and it went away quickly. Has not had it sense. Treatment Goals Patient/Caregiver Goals dec jaw pain, eat w/o pain, no constant pain PT-OP-C Subjective Start: 11/22/22 15:01 Freq: Status: Active Protocol: Document 01/09/23 10:06 [facility] (Rec: 01/09/23 17:04 [facility] [id number]) OP-PT Subjective Patient Comments Patient Comments Pt reports she will go down to for needling w/saline or an anesthetic on Feb 08. Pt reports her entire back seized up for the past week since she starting taking the mm relaxors. She stopped the past 3 days. The back is still irritated. Pt reports she does feel like the last session helped. She notes L Patient Reported Progress Improving PT-OP-F Manual Assessment Start: 11/22/22 15:01 Freq: Status: Active Protocol: Document 12/06/22 07:30 [facility] (Rec: 12/06/22 10:41 [facility] [id number]) Manual Assessments Soft Tissue Assessment Soft Tissue Mobility Assessment tightness on L masseter, temporalis, B digastric & pterygoids, L>R scalenes, B SCM, L>R cervical paraspinals Joint Mobility Assessment Joint Mobility Assessment L 1st rib elevated, L shear of C1 and 2 and R rot PT-OP-K Range of Motion Start: 11/22/22 15:01 Freq: Status: Active Protocol: Document 01/09/23 10:06 [facility] (Rec: 01/09/23 17:04 [facility] [id number]) Cervical Spine Range of Motion Cervical Spine Active Degrees Flexion 70 Extension 46 Rotation Left 66 Rotation Right 51 Lateral Flexion Left 32 Lateral Flexion Right 37 Comments mild pain w/flex; contra tightness w/SB TMJ Range of Motion Jaw Openning Jaw Openning (mm) 26 Comments Comments deviates w/C curve to R then L ; less ant shear of L TMJ PT-OP-L Special Tests Start: 11/22/22 15:01 Freq: Status: Active Protocol: Document 12/06/22 07:30 [facility] (Rec: 12/06/22 10:41 [facility] [id number]) Special Tests Cervical Spine Special Tests Traction Test Results neg arterial screening Comments carotid and heart ausciltation : WNL Spurling's Test Test Results neg Other Special Tests Special Tests BP:120/73 PT-OP-Q Treatments Start: 11/22/22 15:01 Freq: Status: Active Protocol: Document 01/09/23 10:06 [facility] (Rec: 01/09/23 17:04 [facility] [id number]) Manual Therapy Treatment Soft Tissue Mobilization cervical Body Location L UT Mobilization Type Sustained Pressure Intensity/Depth Moderate Joint Mobilizations ribs Comments 1st rib caudal L FM and PA rib 2 FM thoracic Comments PA T1-3 w/transverse glide bias FM Self-Care/Home Management Treatment Education Other Education 5 min: discussion of current care w/MD at and discussed cont PT and doing 2x/wk for a little longer as she is making good gains PT-OP-R Modalities Start: 11/22/22 15:01 Freq: Status: Active Protocol: Document 01/09/23 10:06 [facility] (Rec: 01/09/23 17:05 [facility] [id number]) Hot Pack/Cold Pack Treatment Cold Pack Location neck Patient Position Hooklying PT-OP-T Assessment and Plan Start: 11/22/22 15:01 Freq: Status: Active Protocol: Document 01/09/23 10:06 [facility] (Rec: 01/09/23 17:04 [facility] [id number]) Physical Therapy Assessment Goals pain Short Term Goal (STG) Pt will report no constant jaw pain throughout day. 01/09-still constant but less pain level STG Duration 01/22/23 Dynamic Balancer Set Up Worker Goal (LTG) Pt will be able to talk and eat w/o inc jaw pain. 01/09-still constant but less pain level LTG Duration 02/28/23 cervical ROM Dynamic Balancer Set Up Worker Goal (LTG) Pt will have full cervical ROM w/o inc pain in order to allow pt to do typical ADLs w/ o inc pain. 01/09-improved in most planes. She LTG Duration 02/28/23 jaw opening Short Term Goal (STG) Pt will be able to open jaw at least 33 mm 01/09-26 mm today STG Duration 01/27/23 Alf Goal (LTG) Pt will be able to open jaw at least 40 mm w/o pain and w/o deviation. LTG Duration 02/28/23 Assessment Summary Assessment Pt given full body motion exercises to improve pain of spine as this is likely affecting posture and in turn affecting neck and jaw pain. Pt is reporting reduction in her pain level w/PT and despite cont constant pain, it is a more managable level. She is making progress w/ cervical motion and some was less today but improved after manual and likely is partly d/ t pain in lumbar spine that had insideous onset. Cont PT for imprvoing jaw motion, cervical mobility and dec pain . Physical Therapy Plan Frequency and Duration Duration of treatment (weeks) 12 Plan of Care Start Date 12/06/22 Plan of Care End Date 02/28/23 Therapeutic Interventions Therapeutic Interventions Home Exercise Program,Joint Mobilizations,Manual Therapy, Neuromuscular Re-education, Orthotic/Prosthetic Management ,Patient/Caregiver Education, Self-Care/Home Management,Soft Tissue Mobilization,Taping, Therapeutic Activities, Therapeutic Exercises Modalities Cold Pack/Ice Massage,Electric Stimulation,Hot Packs Next Visit Focus/Plan Next Note Type Treatment Note Next Visit Plan REcheck SNAGS, add scapular ROM over foam roller POC: cont to work on jaw and cervical mobility, advance scap and cervical stability
--- NOTE | 2023-01-11 14:16 | PT.OTN ---
Current Diagnoses Arthralgia of bilateral temporomandibular joint (01/11/23) Cervicalgia (01/11/23) Abnormal posture (01/11/23) Physical Therapy Treatment Note PT-OP-A Visit Information Start: 11/22/22 15:01 Freq: Status: Active Protocol: Document 01/11/23 10:48 [facility] (Rec: 01/11/23 14:16 [facility] [id number]) Out-Patient Physical Therapy Visit Information Visit Information Visit Type Treatment Note Visit Note 04/14 Student PT Ann Loyola participated in treatment session w/PT direct supervision and direction Visit Start Time 10:49 Visit Stop Time 11:32 Total Visit Minutes 43 Visit Number 11 Number of TUBE STATION ATTENDANT Visits 0 PT-OP-B Current Condition Start: 11/22/22 15:01 Freq: Status: Active Protocol: Document 12/06/22 07:30 [facility] (Rec: 12/06/22 10:41 [facility] [id number]) Current Condition History of Current Condition Onset Date 6 months ago Current Complaints L TMJ History of Current Condition Pt has been seeing a DO that does craniosacral and it was helping but she hit a wall that was helping the pain any more. She went to [facility] and was considering mm relaxors. It was in L jaw and radiated down mandible and into teeth. It would also radiate down L side of neck and upper cervical of R neck. For months it was constant, and 2 days ago she went to this lady recommended by a friend. She did craniosacral and some myofascial release along the jaw and they made a good amount of progress in the session. At this moment, she feels it but it is no longer screaming at her. She had cataract surgery on L eye and right after that she had pain after. She is having trouble with the eye. She was supposed to not have to wear glasses and still has to and there is just a tug to her L lat eye and there is a viscous watering. L eye is also painful. It feels sore. Pain inc w/eating and had to do soft foods only. She eats mostly on R. The electric toothbrush hurts teeth. sometimes just moving around irritates it. It is now in the lower jaw. The vibration of talking irritates that. Denies DOMINGUEZ. Typically no dizziness or lightheadeness but the other day. She just got up out of bed and was dizzy and was careful and it went away quickly. Has not had it sense. Treatment Goals Patient/Caregiver Goals dec jaw pain, eat w/o pain, no constant pain PT-OP-C Subjective Start: 11/22/22 15:01 Freq: Status: Active Protocol: Document 01/11/23 10:48 [facility] (Rec: 01/11/23 14:16 [facility] [id number]) OP-PT Subjective Patient Comments Patient Comments Pt reports her LB is better. Notes she really feels like we are moving in the right direction Patient Reported Progress Improving PT-OP-F Manual Assessment Start: 11/22/22 15:01 Freq: Status: Active Protocol: Document 12/06/22 07:30 [facility] (Rec: 12/06/22 10:41 [facility] [id number]) Manual Assessments Soft Tissue Assessment Soft Tissue Mobility Assessment tightness on L masseter, temporalis, B digastric & pterygoids, L>R scalenes, B SCM, L>R cervical paraspinals Joint Mobility Assessment Joint Mobility Assessment L 1st rib elevated, L shear of C1 and 2 and R rot PT-OP-K Range of Motion Start: 11/22/22 15:01 Freq: Status: Active Protocol: Document 01/09/23 10:06 [facility] (Rec: 01/09/23 17:04 [facility] [id number]) Cervical Spine Range of Motion Cervical Spine Active Degrees Flexion 70 Extension 46 Rotation Left 66 Rotation Right 51 Lateral Flexion Left 32 Lateral Flexion Right 37 Comments mild pain w/flex; contra tightness w/SB TMJ Range of Motion Jaw Openning Jaw Openning (mm) 26 Comments Comments deviates w/C curve to R then L ; less ant shear of L TMJ PT-OP-L Special Tests Start: 11/22/22 15:01 Freq: Status: Active Protocol: Document 12/06/22 07:30 [facility] (Rec: 12/06/22 10:41 [facility] [id number]) Special Tests Cervical Spine Special Tests Traction Test Results neg arterial screening Comments carotid and heart ausciltation : WNL Spurling's Test Test Results neg Other Special Tests Special Tests BP:120/73 PT-OP-Q Treatments Start: 11/22/22 15:01 Freq: Status: Active Protocol: Document 01/11/23 10:48 [facility] (Rec: 01/11/23 14:16 [facility] [id number]) Therapeutic Exercises Supine Exercises foam roll Supine Exercise Name T, Y, Is and snow angels Side bilateral Reps/Minutes 5 min Standing Exercises ext Standing Exercise Name upper tspine at wall Side bilateral Reps/Minutes 10 reps then 30 sec hold Comments hands behind head w/staggered stance Manual Therapy Treatment Soft Tissue Mobilization thoracic Body Location R>L rhomboids & ES Mobilization Type Rolling,Sustained Pressure Intensity/Depth Moderate cervical Body Location R>L UT, LS & scalenes & SCM L> R Mobilization Type Sustained Pressure Intensity/Depth Moderate Joint Mobilizations ribs Comments R rib 5 and 8 SB R FM thoracic Body Position seated Comments PA T4-6 FM PT-OP-R Modalities Start: 11/22/22 15:01 Freq: Status: Active Protocol: Document 01/09/23 10:06 [facility] (Rec: 01/09/23 17:05 [facility] [id number]) Hot Pack/Cold Pack Treatment Cold Pack Location neck Patient Position Hooklying PT-OP-T Assessment and Plan Start: 11/22/22 15:01 Freq: Status: Active Protocol: Document 01/11/23 10:48 [facility] (Rec: 01/11/23 14:16 [facility] [id number]) Physical Therapy Assessment Goals pain Short Term Goal (STG) Pt will report no constant jaw pain throughout day. 01/09-still constant but less pain level STG Duration 01/22/23 Long-Term Goal (LTG) Pt will be able to talk and eat w/o inc jaw pain. 01/09-still constant but less pain level LTG Duration 02/28/23 cervical ROM Long-Term Goal (LTG) Pt will have full cervical ROM w/o inc pain in order to allow pt to do typical ADLs w/ o inc pain. 01/09-improved in most planes. She LTG Duration 02/28/23 jaw opening Short Term Goal (STG) Pt will be able to open jaw at least 33 mm 01/09-26 mm today STG Duration 01/27/23 Long-Term Goal (LTG) Pt will be able to open jaw at least 40 mm w/o pain and w/o deviation. LTG Duration 02/28/23 Assessment Summary Assessment Pt has significant limitation w/ability to get into thoracic ext especially upper which causes in tension at upper cervical based on posture. She improved w/manual but does cont to have a lot of cervical tension and pt still feels like tension in cervical spine radiates to teeth Physical Therapy Plan Frequency and Duration Duration of treatment (weeks) 12 Plan of Care Start Date 12/06/22 Plan of Care End Date 02/28/23 Next Visit Focus/Plan Next Note Type Treatment Note Next Visit Plan cranial work REcheck SNAGS, foam roller, standing tspine ext POC: cont to work on jaw and cervical mobility, advance scap and cervical stability
--- NOTE | 2023-01-16 16:20 | PT.OTN ---
Addendum entered and electronically signed by Diana Cardoza, PT 01/17/23 17:30: PT direct supervision and direction to PT student. Original Note: Current Diagnoses Arthralgia of bilateral temporomandibular joint (01/16/23) Cervicalgia (01/16/23) Abnormal posture (01/16/23) Physical Therapy Treatment Note PT-OP-A Visit Information Start: 11/22/22 15:01 Freq: Status: Active Protocol: Document 01/16/23 10:39 [facility] (Rec: 01/16/23 11:34 [facility] [id number]) Out-Patient Physical Therapy Visit Information Visit Information Visit Type Treatment Note Visit Note 05/12 Visit Start Time 10:37 Visit Stop Time 11:30 Total Visit Minutes 53 Visit Number 12 Number of JOY LOADER Visits 0 PT-OP-B Current Condition Start: 11/22/22 15:01 Freq: Status: Active Protocol: Document 12/06/22 07:30 [facility] (Rec: 12/06/22 10:41 [facility] [id number]) Current Condition History of Current Condition Onset Date 6 months ago Current Complaints L TMJ History of Current Condition Pt has been seeing a DO that does craniosacral and it was helping but she hit a wall that was helping the pain any more. She went to [facility] and was considering mm relaxors. It was in L jaw and radiated down mandible and into teeth. It would also radiate down L side of neck and upper cervical of R neck. For months it was constant, and 2 days ago she went to this lady recommended by a friend. She did craniosacral and some myofascial release along the jaw and they made a good amount of progress in the session. At this moment, she feels it but it is no longer screaming at her. She had cataract surgery on L eye and right after that she had pain after. She is having trouble with the eye. She was supposed to not have to wear glasses and still has to and there is just a tug to her L lat eye and there is a viscous watering. L eye is also painful. It feels sore. Pain inc w/eating and had to do soft foods only. She eats mostly on R. The electric toothbrush hurts teeth. sometimes just moving around irritates it. It is now in the lower jaw. The vibration of talking irritates that. Denies DOMINGUEZ. Typically no dizziness or lightheadeness but the other day. She just got up out of bed and was dizzy and was careful and it went away quickly. Has not had it sense. Treatment Goals Patient/Caregiver Goals dec jaw pain, eat w/o pain, no constant pain PT-OP-C Subjective Start: 11/22/22 15:01 Freq: Status: Active Protocol: Document 01/16/23 10:39 [facility] (Rec: 01/16/23 11:34 [id number]) OP-PT Subjective Patient Comments Patient Comments Feels like she is improving and doing well. Yesterday was a little crampy but is feeling good today. Teeth sensation is still there but less strong . Patient Reported Progress Improving PT-OP-F Manual Assessment Start: 11/22/22 15:01 Freq: Status: Active Protocol: Document 12/06/22 07:30 [facility] (Rec: 12/06/22 10:41 [facility] [id number]) Manual Assessments Soft Tissue Assessment Soft Tissue Mobility Assessment tightness on L masseter, temporalis, B digastric & pterygoids, L>R scalenes, B SCM, L>R cervical paraspinals Joint Mobility Assessment Joint Mobility Assessment L 1st rib elevated, L shear of C1 and 2 and R rot PT-OP-K Range of Motion Start: 11/22/22 15:01 Freq: Status: Active Protocol: Document 01/09/23 10:06 [facility] (Rec: 01/09/23 17:04 [facility] [id number]) Cervical Spine Range of Motion Cervical Spine Active Degrees Flexion 70 Extension 46 Rotation Left 66 Rotation Right 51 Lateral Flexion Left 32 Lateral Flexion Right 37 Comments mild pain w/flex; contra tightness w/SB TMJ Range of Motion Jaw Openning Jaw Openning (mm) 26 Comments Comments deviates w/C curve to R then L ; less ant shear of L TMJ PT-OP-L Special Tests Start: 11/22/22 15:01 Freq: Status: Active Protocol: Document 12/06/22 07:30 [facility] (Rec: 12/06/22 10:41 [facility] [id number]) Special Tests Cervical Spine Special Tests Traction Test Results neg arterial screening Comments carotid and heart ausciltation : WNL Spurling's Test Test Results neg Other Special Tests Special Tests BP:120/73 PT-OP-Q Treatments Start: 11/22/22 15:01 Freq: Status: Active Protocol: Document 01/16/23 10:39 [facility] (Rec: 01/16/23 11:34 [facility] [id number]) Manual Therapy Treatment Soft Tissue Mobilization cervical Body Location B SCM Mobilization Type Rolling,Sustained Pressure Intensity/Depth Deep Comments B SCM STM jaw Mobilization Type Myofascial Release,Rolling, Sustained Pressure Intensity/Depth Moderate Comments Temporalis, B masseter, B post digastric & med pterygoid R>L STM Joint Mobilizations cranium Comments 1. L temporal & zygomatic decompression FM 2. post/inf decompression occiput FM PT-OP-R Modalities Start: 11/22/22 15:01 Freq: Status: Active Protocol: Document 01/16/23 10:39 [facility] (Rec: 01/16/23 11:35 [facility] [id number]) Hot Pack/Cold Pack Treatment Cold Pack Location neck Patient Position Hooklying Treatment Duration (minutes) 10 PT-OP-T Assessment and Plan Start: 11/22/22 15:01 Freq: Status: Active Protocol: Document 01/16/23 10:39 [facility] (Rec: 01/16/23 11:34 [facility] [id number]) Physical Therapy Assessment Goals pain Short Term Goal (STG) Pt will report no constant jaw pain throughout day. 01/09-still constant but less pain level STG Duration 01/22/23 Relay Shop Supervisor Goal (LTG) Pt will be able to talk and eat w/o inc jaw pain. 01/09-still constant but less pain level LTG Duration 02/28/23 cervical ROM Custodial Goal (LTG) Pt will have full cervical ROM w/o inc pain in order to allow pt to do typical ADLs w/ o inc pain. 01/09-improved in most planes. She LTG Duration 02/28/23 jaw opening Short Term Goal (STG) Pt will be able to open jaw at least 33 mm 01/09-26 mm today STG Duration 01/27/23 Custodial Goal (LTG) Pt will be able to open jaw at least 40 mm w/o pain and w/o deviation. LTG Duration 02/28/23 Assessment Summary Assessment Pt was able to tolerate inc in pressure during STM manual to suprahyoids and medial pterygoid, which tension in R> L. Pt B SCM tension dec today. During R masseter & temporalis STM pt reported neural symtoms getting activated and going into teeth region, this occured with sup-mod pressure. Pt ended session with ice on B jaw. Physical Therapy Plan Frequency and Duration Duration of treatment (weeks) 12 Plan of Care Start Date 12/06/22 Plan of Care End Date 02/28/23 Next Visit Focus/Plan Next Note Type Treatment Note Next Visit Plan cranial work REcheck SNAGS, foam roller, standing tspine ext POC: cont to work on jaw and cervical mobility, advance scap and cervical stability
--- NOTE | 2023-01-23 11:28 | PT.OTN ---
Current Diagnoses Arthralgia of bilateral temporomandibular joint (01/23/23) Cervicalgia (01/23/23) Abnormal posture (01/23/23) Physical Therapy Treatment Note PT-OP-A Visit Information Start: 11/22/22 15:01 Freq: Status: Active Protocol: Document 01/23/23 10:31 [facility] (Rec: 01/23/23 11:28 [facility] [id number]) Out-Patient Physical Therapy Visit Information Visit Information Visit Type Treatment Note Visit Note 06/12 Student PT Ann Loyola participated in treatment session w/PT direct supervision and direction Visit Start Time 10:37 Visit Stop Time 11:26 Total Visit Minutes 49 Visit Number 13 Number of NEWS COMMENTATOR Visits 0 PT-OP-B Current Condition Start: 11/22/22 15:01 Freq: Status: Active Protocol: Document 12/06/22 07:30 [facility] (Rec: 12/06/22 10:41 [facility] [id number]) Current Condition History of Current Condition Onset Date 6 months ago Current Complaints L TMJ History of Current Condition Pt has been seeing a DO that does craniosacral and it was helping but she hit a wall that was helping the pain any more. She went to [facility] and was considering mm relaxors. It was in L jaw and radiated down mandible and into teeth. It would also radiate down L side of neck and upper cervical of R neck. For months it was constant, and 2 days ago she went to this lady recommended by a friend. She did craniosacral and some myofascial release along the jaw and they made a good amount of progress in the session. At this moment, she feels it but it is no longer screaming at her. She had cataract surgery on L eye and right after that she had pain after. She is having trouble with the eye. She was supposed to not have to wear glasses and still has to and there is just a tug to her L lat eye and there is a viscous watering. L eye is also painful. It feels sore. Pain inc w/eating and had to do soft foods only. She eats mostly on R. The electric toothbrush hurts teeth. sometimes just moving around irritates it. It is now in the lower jaw. The vibration of talking irritates that. Denies DOMINGUEZ. Typically no dizziness or lightheadeness but the other day. She just got up out of bed and was dizzy and was careful and it went away quickly. Has not had it sense. Treatment Goals Patient/Caregiver Goals dec jaw pain, eat w/o pain, no constant pain PT-OP-C Subjective Start: 11/22/22 15:01 Freq: Status: Active Protocol: Document 01/23/23 10:31 [facility] (Rec: 01/23/23 11:28 [facility] [id number]) OP-PT Subjective Patient Comments Patient Comments Pt reports she feels like she is ready to cut back to 1x/ week. She is a little concerned about the needle thing and called and asked about possibly botox. pt reports she did well after last session. She still feels lik ethe activation is dialed down. Patient Reported Progress Improving PT-OP-F Manual Assessment Start: 11/22/22 15:01 Freq: Status: Active Protocol: Document 12/06/22 07:30 [facility] (Rec: 12/06/22 10:41 [facility] [id number]) Manual Assessments Soft Tissue Assessment Soft Tissue Mobility Assessment tightness on L masseter, temporalis, B digastric & pterygoids, L>R scalenes, B SCM, L>R cervical paraspinals Joint Mobility Assessment Joint Mobility Assessment L 1st rib elevated, L shear of C1 and 2 and R rot PT-OP-K Range of Motion Start: 11/22/22 15:01 Freq: Status: Active Protocol: Document 01/09/23 10:06 [facility] (Rec: 01/09/23 17:04 [facility] [id number]) Cervical Spine Range of Motion Cervical Spine Active Degrees Flexion 70 Extension 46 Rotation Left 66 Rotation Right 51 Lateral Flexion Left 32 Lateral Flexion Right 37 Comments mild pain w/flex; contra tightness w/SB TMJ Range of Motion Jaw Openning Jaw Openning (mm) 26 Comments Comments deviates w/C curve to R then L ; less ant shear of L TMJ PT-OP-L Special Tests Start: 11/22/22 15:01 Freq: Status: Active Protocol: Document 12/06/22 07:30 [facility] (Rec: 12/06/22 10:41 [facility] [id number]) Special Tests Cervical Spine Special Tests Traction Test Results neg arterial screening Comments carotid and heart ausciltation : WNL Spurling's Test Test Results neg Other Special Tests Special Tests BP:120/73 PT-OP-Q Treatments Start: 11/22/22 15:01 Freq: Status: Active Protocol: Document 01/23/23 10:31 [facility] (Rec: 01/23/23 11:28 [facility] [id number]) Manual Therapy Treatment Soft Tissue Mobilization cervical Body Location B SO & SCM Mobilization Type Rolling,Sustained Pressure Intensity/Depth Moderate cranial fascia Body Location B Mobilization Type Myofascial Release Intensity/Depth Superficial Body Position Supine Joint Mobilizations cervical Comments C 1 distraction and UAP L FM cranium Comments 1. frontal ant 2. temporal inf and AP FM 3. parietal B FM 4. L zygomatic inf FM 5. nasal swing R FM PT-OP-R Modalities Start: 11/22/22 15:01 Freq: Status: Active Protocol: Document 01/23/23 10:31 [facility] (Rec: 01/23/23 11:28 [facility] [id number]) Hot Pack/Cold Pack Treatment Cold Pack Location neck & jaw Patient Position Hooklying Treatment Duration (minutes) 10 PT-OP-T Assessment and Plan Start: 11/22/22 15:01 Freq: Status: Active Protocol: Document 01/23/23 10:31 [facility] (Rec: 01/23/23 11:28 [facility] [id number]) Physical Therapy Assessment Goals pain Short Term Goal (STG) Pt will report no constant jaw pain throughout day. 01/09-still constant but less pain level STG Duration 01/22/23 Correction Goal (LTG) Pt will be able to talk and eat w/o inc jaw pain. 01/09-still constant but less pain level LTG Duration 02/28/23 cervical ROM Pot Sander Goal (LTG) Pt will have full cervical ROM w/o inc pain in order to allow pt to do typical ADLs w/ o inc pain. 01/09-improved in most planes. She LTG Duration 02/28/23 jaw opening Short Term Goal (STG) Pt will be able to open jaw at least 33 mm 01/09-26 mm today STG Duration 01/27/23 Pot Sander Goal (LTG) Pt will be able to open jaw at least 40 mm w/o pain and w/o deviation. LTG Duration 02/28/23 Assessment Summary Assessment Pt has improved overall jaw opening to 30mm w/less deviation now. She cont to have post L orbital pain and does plan to follow up w/her doctor at for a neurolgist referral. Physical Therapy Plan Frequency and Duration Duration of treatment (weeks) 12 Plan of Care Start Date 12/06/22 Plan of Care End Date 02/28/23 Next Visit Focus/Plan Next Note Type Treatment Note Next Visit Plan cranial work; jaw distraction REcheck SNAGS, foam roller, standing tspine ext POC: cont to work on jaw and cervical mobility, advance scap and cervical stability
--- NOTE | 2023-02-02 11:15 | PT.OTN ---
Current Diagnoses Arthralgia of bilateral temporomandibular joint (02/02/23) Cervicalgia (02/02/23) Abnormal posture (02/02/23) Physical Therapy Treatment Note PT-OP-A Visit Information Start: 11/22/22 15:01 Freq: Status: Active Protocol: Document 02/02/23 10:37 [facility] (Rec: 02/02/23 11:30 SP [id number]) Out-Patient Physical Therapy Visit Information Visit Information Visit Type Treatment Note Visit Note 07/12 Student PT Ann Loyola participated in treatment session w/PT direct supervision and direction Visit Start Time 10:37 Visit Stop Time 11:15 Total Visit Minutes 38 Visit Number 14 Number of VISUAL EDUCATION DIRECTOR Visits 1 PT-OP-B Current Condition Start: 11/22/22 15:01 Freq: Status: Active Protocol: Document 12/06/22 07:30 [facility] (Rec: 12/06/22 10:41 [facility] [id number]) Current Condition History of Current Condition Onset Date 6 months ago Current Complaints L TMJ History of Current Condition Pt has been seeing a DO that does craniosacral and it was helping but she hit a wall that was helping the pain any more. She went to [facility] and was considering mm relaxors. It was in L jaw and radiated down mandible and into teeth. It would also radiate down L side of neck and upper cervical of R neck. For months it was constant, and 2 days ago she went to this lady recommended by a friend. She did craniosacral and some myofascial release along the jaw and they made a good amount of progress in the session. At this moment, she feels it but it is no longer screaming at her. She had cataract surgery on L eye and right after that she had pain after. She is having trouble with the eye. She was supposed to not have to wear glasses and still has to and there is just a tug to her L lat eye and there is a viscous watering. L eye is also painful. It feels sore. Pain inc w/eating and had to do soft foods only. She eats mostly on R. The electric toothbrush hurts teeth. sometimes just moving around irritates it. It is now in the lower jaw. The vibration of talking irritates that. Denies DOMINGUEZ. Typically no dizziness or lightheadeness but the other day. She just got up out of bed and was dizzy and was careful and it went away quickly. Has not had it sense. Treatment Goals Patient/Caregiver Goals dec jaw pain, eat w/o pain, no constant pain PT-OP-C Subjective Start: 11/22/22 15:01 Freq: Status: Active Protocol: Document 02/02/23 10:37 [facility] (Rec: 02/02/23 11:30 SP [id number]) OP-PT Subjective Patient Comments Patient Comments Pt states saw neural repairer finished metal in [place] yesterday posterior, anterior, over top of her cranium. SHe was told 1st of 3 appts and this initial tx was intense, eg threading needle over posterior head intense but not painful. Found really tired this am when tried to wake. PT-OP-F Manual Assessment Start: 11/22/22 15:01 Freq: Status: Active Protocol: Document 12/06/22 07:30 [facility] (Rec: 12/06/22 10:41 [facility] [id number]) Manual Assessments Soft Tissue Assessment Soft Tissue Mobility Assessment tightness on L masseter, temporalis, B digastric & pterygoids, L>R scalenes, B SCM, L>R cervical paraspinals Joint Mobility Assessment Joint Mobility Assessment L 1st rib elevated, L shear of C1 and 2 and R rot PT-OP-K Range of Motion Start: 11/22/22 15:01 Freq: Status: Active Protocol: Document 01/09/23 10:06 [facility] (Rec: 01/09/23 17:04 [facility] [id number]) Cervical Spine Range of Motion Cervical Spine Active Degrees Flexion 70 Extension 46 Rotation Left 66 Rotation Right 51 Lateral Flexion Left 32 Lateral Flexion Right 37 Comments mild pain w/flex; contra tightness w/SB TMJ Range of Motion Jaw Openning Jaw Openning (mm) 26 Comments Comments deviates w/C curve to R then L ; less ant shear of L TMJ PT-OP-L Special Tests Start: 11/22/22 15:01 Freq: Status: Active Protocol: Document 12/06/22 07:30 [facility] (Rec: 12/06/22 10:41 [facility] [id number]) Special Tests Cervical Spine Special Tests Traction Test Results neg arterial screening Comments carotid and heart ausciltation : WNL Spurling's Test Test Results neg Other Special Tests Special Tests BP:120/73 PT-OP-Q Treatments Start: 11/22/22 15:01 Freq: Status: Active Protocol: Document 02/02/23 10:37 SP (Rec: 02/02/23 11:30 SP [id number]) Manual Therapy Treatment Soft Tissue Mobilization intra-oral Body Location lat ptyergoid Mobilization Type Myofascial Release,Rolling, Sustained Pressure Intensity/Depth Moderate Comments manual jaw Mobilization Type Myofascial Release,Rolling, Sustained Pressure Intensity/Depth Moderate Comments Temporalis, B masseter, B post digastric & med pterygoid R>L STM cranial fascia Body Location B Mobilization Type Myofascial Release Intensity/Depth Superficial Body Position Supine Joint Mobilizations CranialSacral Therapy Joint sphenoid, parietal, mandible decompression Grade I Body Position Hooklying Comments very light/ gentle decompression- good relaxing response, I can feel like my head is so open. cranium Comments 1. frontal ant 2. temporal inf and AP FM 3. parietal B FM 4. L zygomatic inf FM 5. nasal swing R FM PT-OP-R Modalities Start: 11/22/22 15:01 Freq: Status: Active Protocol: Document 01/23/23 10:31 [facility] (Rec: 01/23/23 11:28 [facility] [id number]) Hot Pack/Cold Pack Treatment Cold Pack Location neck & jaw Patient Position Hooklying Treatment Duration (minutes) 10 PT-OP-T Assessment and Plan Start: 11/22/22 15:01 Freq: Status: Active Protocol: Document 02/02/23 10:37 SP (Rec: 02/02/23 11:30 SP [id number]) Physical Therapy Assessment Goals pain Short Term Goal (STG) Pt will report no constant jaw pain throughout day. 01/09-still constant but less pain level STG Duration 01/22/23 Gas Meter Installer Goal (LTG) Pt will be able to talk and eat w/o inc jaw pain. 01/09-still constant but less pain level LTG Duration 02/28/23 cervical ROM Residential Goal (LTG) Pt will have full cervical ROM w/o inc pain in order to allow pt to do typical ADLs w/ o inc pain. 01/09-improved in most planes. She LTG Duration 02/28/23 jaw opening Short Term Goal (STG) Pt will be able to open jaw at least 33 mm 01/09-26 mm today STG Duration 01/27/23 Gas Meter Installer Goal (LTG) Pt will be able to open jaw at least 40 mm w/o pain and w/o deviation. LTG Duration 02/28/23 Assessment Summary Assessment Pt good feed response fascia and energy releases, large breath/sighs, My head feels so open and jaw relaxed. Pt R >L parietal (superior) and sphenoid (anterior) decompression. Pt reported L>R lateral ptyergoid pain, improved lessening pressure during intraoral hold with cues breath releases. Pt reports less tension in head and jaw end tx, complimentary needed after acupuncture received yesterday. Physical Therapy Plan Frequency and Duration Duration of treatment (weeks) 12 Plan of Care Start Date 12/06/22 Plan of Care End Date 02/28/23 Therapeutic Interventions Therapeutic Interventions Home Exercise Program,Joint Mobilizations,Manual Therapy, Neuromuscular Re-education, Orthotic/Prosthetic Management ,Patient/Caregiver Education, Self-Care/Home Management,Soft Tissue Mobilization,Taping, Therapeutic Activities, Therapeutic Exercises Modalities Cold Pack/Ice Massage,Electric Stimulation,Hot Packs Next Visit Focus/Plan Next Note Type Treatment Note Next Visit Plan cranial work; jaw distraction REcheck SNAGS, foam roller, standing tspine ext POC: cont to work on jaw and cervical mobility, advance scap and cervical stability
--- NOTE | 2023-02-09 13:00 | PT.OTN ---
Current Diagnoses Arthralgia of bilateral temporomandibular joint (02/09/23) Cervicalgia (02/09/23) Abnormal posture (02/09/23) Physical Therapy Treatment Note PT-OP-A Visit Information Start: 11/22/22 15:01 Freq: Status: Active Protocol: Document 02/09/23 12:18 SP (Rec: 02/09/23 13:03 SP [id number]) Out-Patient Physical Therapy Visit Information Visit Information Visit Type Treatment Note Visit Note 08/12 Visit Start Time 12:18 Visit Stop Time 13:00 Total Visit Minutes 42 Visit Number 2 PT-OP-B Current Condition Start: 11/22/22 15:01 Freq: Status: Active Protocol: Document 12/06/22 07:30 [facility] (Rec: 12/06/22 10:41 [facility] [id number]) Current Condition History of Current Condition Onset Date 6 months ago Current Complaints L TMJ History of Current Condition Pt has been seeing a DO that does craniosacral and it was helping but she hit a wall that was helping the pain any more. She went to [facility] and was considering mm relaxors. It was in L jaw and radiated down mandible and into teeth. It would also radiate down L side of neck and upper cervical of R neck. For months it was constant, and 2 days ago she went to this lady recommended by a friend. She did craniosacral and some myofascial release along the jaw and they made a good amount of progress in the session. At this moment, she feels it but it is no longer screaming at her. She had cataract surgery on L eye and right after that she had pain after. She is having trouble with the eye. She was supposed to not have to wear glasses and still has to and there is just a tug to her L lat eye and there is a viscous watering. L eye is also painful. It feels sore. Pain inc w/eating and had to do soft foods only. She eats mostly on R. The electric toothbrush hurts teeth. sometimes just moving around irritates it. It is now in the lower jaw. The vibration of talking irritates that. Denies DOMINGUEZ. Typically no dizziness or lightheadeness but the other day. She just got up out of bed and was dizzy and was careful and it went away quickly. Has not had it sense. Treatment Goals Patient/Caregiver Goals dec jaw pain, eat w/o pain, no constant pain PT-OP-C Subjective Start: 11/22/22 15:01 Freq: Status: Active Protocol: Document 02/09/23 12:18 SP (Rec: 02/09/23 13:03 SP [id number]) OP-PT Subjective Patient Comments Patient Comments She has seen her neuroacupuncturist Pati for 2nd tx and brought brochures for us. She also went to yesterday (dental specialist) and did some fluid injections to interupt tension pattern. She states feeling emotional since recent tx and not sure why. PT-OP-F Manual Assessment Start: 11/22/22 15:01 Freq: Status: Active Protocol: Document 12/06/22 07:30 [facility] (Rec: 12/06/22 10:41 [facility] [id number]) Manual Assessments Soft Tissue Assessment Soft Tissue Mobility Assessment tightness on L masseter, temporalis, B digastric & pterygoids, L>R scalenes, B SCM, L>R cervical paraspinals Joint Mobility Assessment Joint Mobility Assessment L 1st rib elevated, L shear of C1 and 2 and R rot PT-OP-K Range of Motion Start: 11/22/22 15:01 Freq: Status: Active Protocol: Document 01/09/23 10:06 [facility] (Rec: 01/09/23 17:04 [facility] [id number]) Cervical Spine Range of Motion Cervical Spine Active Degrees Flexion 70 Extension 46 Rotation Left 66 Rotation Right 51 Lateral Flexion Left 32 Lateral Flexion Right 37 Comments mild pain w/flex; contra tightness w/SB TMJ Range of Motion Jaw Openning Jaw Openning (mm) 26 Comments Comments deviates w/C curve to R then L ; less ant shear of L TMJ PT-OP-L Special Tests Start: 11/22/22 15:01 Freq: Status: Active Protocol: Document 12/06/22 07:30 [facility] (Rec: 12/06/22 10:41 [facility] [id number]) Special Tests Cervical Spine Special Tests Traction Test Results neg arterial screening Comments carotid and heart ausciltation : WNL Spurling's Test Test Results neg Other Special Tests Special Tests BP:120/73 PT-OP-Q Treatments Start: 11/22/22 15:01 Freq: Status: Active Protocol: Document 02/09/23 12:18 SP (Rec: 02/09/23 13:03 SP [id number]) Manual Therapy Treatment Soft Tissue Mobilization intra-oral Body Location lat ptyergoid Mobilization Type Myofascial Release,Rolling, Sustained Pressure Intensity/Depth Moderate Comments manual cervical Body Location B SO & SCM Mobilization Type Rolling,Sustained Pressure Intensity/Depth Moderate jaw Mobilization Type Myofascial Release,Rolling, Sustained Pressure Intensity/Depth Moderate Comments Temporalis, B masseter, B post digastric & med pterygoid R>L STM cranial fascia Body Location B Mobilization Type Myofascial Release Intensity/Depth Superficial Body Position Supine Joint Mobilizations CranialSacral Therapy Joint sphenoid, parietal, mandible decompression Grade I Body Position Hooklying Comments very light/ gentle decompression- good relaxing response, I can feel like my head is so open. cranium Comments 1. frontal ant 2. temporal inf and AP FM 3. parietal B FM 4. L zygomatic inf FM 5. nasal swing R FM PT-OP-R Modalities Start: 11/22/22 15:01 Freq: Status: Active Protocol: Document 01/23/23 10:31 [facility] (Rec: 01/23/23 11:28 [facility] [id number]) Hot Pack/Cold Pack Treatment Cold Pack Location neck & jaw Patient Position Hooklying Treatment Duration (minutes) 10 PT-OP-T Assessment and Plan Start: 11/22/22 15:01 Freq: Status: Active Protocol: Document 02/09/23 12:18 SP (Rec: 02/09/23 13:03 SP [id number]) Physical Therapy Assessment Goals pain Short Term Goal (STG) Pt will report no constant jaw pain throughout day. 01/09-still constant but less pain level STG Duration 01/22/23 Fci Goal (LTG) Pt will be able to talk and eat w/o inc jaw pain. 01/09-still constant but less pain level LTG Duration 02/28/23 cervical ROM Warp Scouring Vat Tender Goal (LTG) Pt will have full cervical ROM w/o inc pain in order to allow pt to do typical ADLs w/ o inc pain. 01/09-improved in most planes. She LTG Duration 02/28/23 jaw opening Short Term Goal (STG) Pt will be able to open jaw at least 33 mm 01/09-26 mm today STG Duration 01/27/23 Warp Scouring Vat Tender Goal (LTG) Pt will be able to open jaw at least 40 mm w/o pain and w/o deviation. LTG Duration 02/28/23 Assessment Summary Assessment Pt responded well to manual. Reports improved decrease jaw tension and less tension over posterior head. She can also breath with sinus congestion end tx. Physical Therapy Plan Frequency and Duration Duration of treatment (weeks) 12 Plan of Care Start Date 12/06/22 Plan of Care End Date 02/28/23 Therapeutic Interventions Therapeutic Interventions Home Exercise Program,Joint Mobilizations,Manual Therapy, Neuromuscular Re-education, Orthotic/Prosthetic Management ,Patient/Caregiver Education, Self-Care/Home Management,Soft Tissue Mobilization,Taping, Therapeutic Activities, Therapeutic Exercises Modalities Cold Pack/Ice Massage,Electric Stimulation,Hot Packs Next Visit Focus/Plan Next Note Type Treatment Note Next Visit Plan cranial work; jaw distraction REcheck SNAGS, foam roller, standing tspine ext POC: cont to work on jaw and cervical mobility, advance scap and cervical stability
--- NOTE | 2023-02-12 13:05 | PT.OTN ---
Current Diagnoses Arthralgia of bilateral temporomandibular joint (02/12/23) Cervicalgia (02/12/23) Abnormal posture (02/12/23) Physical Therapy Treatment Note PT-OP-A Visit Information Start: 11/22/22 15:01 Freq: Status: Active Protocol: Document 02/12/23 12:17 SP (Rec: 02/12/23 13:08 SP [id number]) Out-Patient Physical Therapy Visit Information Visit Information Visit Type Treatment Note Visit Note 09/11 Visit Start Time 12:17 Visit Stop Time 13:05 Total Visit Minutes 48 Visit Number 3 Number of RESIDENTIAL ELECTRICIAN Visits 1 PT-OP-B Current Condition Start: 11/22/22 15:01 Freq: Status: Active Protocol: Document 12/06/22 07:30 [facility] (Rec: 12/06/22 10:41 [facility] [id number]) Current Condition History of Current Condition Onset Date 6 months ago Current Complaints L TMJ History of Current Condition Pt has been seeing a DO that does craniosacral and it was helping but she hit a wall that was helping the pain any more. She went to [facility] and was considering mm relaxors. It was in L jaw and radiated down mandible and into teeth. It would also radiate down L side of neck and upper cervical of R neck. For months it was constant, and 2 days ago she went to this lady recommended by a friend. She did craniosacral and some myofascial release along the jaw and they made a good amount of progress in the session. At this moment, she feels it but it is no longer screaming at her. She had cataract surgery on L eye and right after that she had pain after. She is having trouble with the eye. She was supposed to not have to wear glasses and still has to and there is just a tug to her L lat eye and there is a viscous watering. L eye is also painful. It feels sore. Pain inc w/eating and had to do soft foods only. She eats mostly on R. The electric toothbrush hurts teeth. sometimes just moving around irritates it. It is now in the lower jaw. The vibration of talking irritates that. Denies DOMINGUEZ. Typically no dizziness or lightheadeness but the other day. She just got up out of bed and was dizzy and was careful and it went away quickly. Has not had it sense. 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 She states wants to dial back to 1x/wk and continue into Mar but leaving town for 2 weeks to [facility]. She reports noticed some tingling LUE 4th MTP finger tip new to her. PT-OP-F Manual Assessment Start: 11/22/22 15:01 Freq: Status: Active Protocol: Document 12/06/22 07:30 [facility] (Rec: 12/06/22 10:41 [facility] [id number]) Manual Assessments Soft Tissue Assessment Soft Tissue Mobility Assessment tightness on L masseter, temporalis, B digastric & pterygoids, L>R scalenes, B SCM, L>R cervical paraspinals Joint Mobility Assessment Joint Mobility Assessment L 1st rib elevated, L shear of C1 and 2 and R rot PT-OP-K Range of Motion Start: 11/22/22 15:01 Freq: Status: Active Protocol: Document 01/09/23 10:06 [facility] (Rec: 01/09/23 17:04 [facility] [id number]) Cervical Spine Range of Motion Cervical Spine Active Degrees Flexion 70 Extension 46 Rotation Left 66 Rotation Right 51 Lateral Flexion Left 32 Lateral Flexion Right 37 Comments mild pain w/flex; contra tightness w/SB TMJ Range of Motion Jaw Openning Jaw Openning (mm) 26 Comments Comments deviates w/C curve to R then L ; less ant shear of L TMJ PT-OP-L Special Tests Start: 11/22/22 15:01 Freq: Status: Active Protocol: Document 12/06/22 07:30 [facility] (Rec: 12/06/22 10:41 [facility] [id number]) Special Tests Cervical Spine Special Tests Traction Test Results neg arterial screening Comments carotid and heart ausciltation : WNL Spurling's Test Test Results neg Other Special Tests Special Tests BP:120/73 PT-OP-Q Treatments Start: 11/22/22 15:01 Freq: Status: Active Protocol: Document 02/12/23 12:17 SP (Rec: 02/12/23 13:08 SP [id number]) Therapeutic Exercises Sitting Exercises median and ulnar nerve Sitting Exercise Name added to HEP- seated Side left Resistance PROM, AAROM- supine, AROM seated Comments cues for posturing and form, noted little lessening of tingling with reps Manual Therapy Treatment Soft Tissue Mobilization cervical Body Location B SO & SCM Mobilization Type Rolling,Sustained Pressure Intensity/Depth Moderate jaw Mobilization Type Myofascial Release,Rolling, Sustained Pressure Intensity/Depth Moderate Comments Temporalis, B masseter, B post digastric & med pterygoid R>L STM cranial fascia Body Location B Mobilization Type Myofascial Release Intensity/Depth Superficial Body Position Supine Joint Mobilizations CranialSacral Therapy Joint sphenoid, parietal, mandible decompression Grade I Body Position Hooklying Comments very light/ gentle decompression- good relaxing response, I can feel like my head is so open. jaw Comments 1. AP R>L FM w/opening PT-OP-R Modalities Start: 11/22/22 15:01 Freq: Status: Active Protocol: Document 01/23/23 10:31 [facility] (Rec: 01/23/23 11:28 [facility] [id number]) Hot Pack/Cold Pack Treatment Cold Pack Location neck & jaw Patient Position Hooklying Treatment Duration (minutes) 10 PT-OP-T Assessment and Plan Start: 11/22/22 15:01 Freq: Status: Active Protocol: Document 02/12/23 12:17 SP (Rec: 02/12/23 13:08 SP [id number]) Physical Therapy Assessment Goals pain Short Term Goal (STG) Pt will report no constant jaw pain throughout day. 01/09-still constant but less pain level STG Duration 01/22/23 Merchandise Shopper Goal (LTG) Pt will be able to talk and eat w/o inc jaw pain. 01/09-still constant but less pain level LTG Duration 02/28/23 cervical ROM Merchandise Shopper Goal (LTG) Pt will have full cervical ROM w/o inc pain in order to allow pt to do typical ADLs w/ o inc pain. 01/09-improved in most planes. She LTG Duration 02/28/23 jaw opening Short Term Goal (STG) Pt will be able to open jaw at least 33 mm 01/09-26 mm today STG Duration 01/27/23 Merchandise Shopper Goal (LTG) Pt will be able to open jaw at least 40 mm w/o pain and w/o deviation. LTG Duration 02/28/23 Assessment Summary Assessment TMJ 25cm pre tx, 28 cm end tx. Pt continues to respond well to gentle manual soft tissue techniques to cranium and jaw with decompression intension while continues to recover from TMJ injections and neuroacupuncture series of tx. Pt good response to added median and ulnar neural glide to HEP to decrease new tingling in 4th MCP L hand. Pt request to reduce PT tx to weekly while still attending acupuncture and hoping will allow her to continue progression into more active HEP next tx. Pt reports feeling more relaxed but states still thinks some of her TMJ pain is facial nerve related and will be asking for further assessment into this with her physicians. Physical Therapy Plan Frequency and Duration Duration of treatment (weeks) 12 Plan of Care Start Date 12/06/22 Plan of Care End Date 02/28/23 Therapeutic Interventions Therapeutic Interventions Home Exercise Program,Joint Mobilizations,Manual Therapy, Neuromuscular Re-education, Orthotic/Prosthetic Management ,Patient/Caregiver Education, Self-Care/Home Management,Soft Tissue Mobilization,Taping, Therapeutic Activities, Therapeutic Exercises Modalities Cold Pack/Ice Massage,Electric Stimulation,Hot Packs Next Visit Focus/Plan Next Note Type Treatment Note Next Visit Plan Cancelling next PT appt, for more recovery from all tx doing right now. Update POC. cranial work; jaw distraction REcheck SNAGS, foam roller, standing tspine ext POC: cont to work on jaw and cervical mobility, advance scap and cervical stability
--- NOTE | 2023-02-22 13:05 | PT.OTN ---
Current Diagnoses Arthralgia of bilateral temporomandibular joint (02/22/23) Cervicalgia (02/22/23) Abnormal posture (02/22/23) Physical Therapy Treatment Note PT-OP-A Visit Information Start: 11/22/22 15:01 Freq: Status: Active Protocol: Document 02/22/23 11:24 [facility] (Rec: 02/22/23 13:04 [facility] [id number]) Out-Patient Physical Therapy Visit Information Visit Information Visit Type Progress Note Visit Note 03/14 Visit Start Time 11:24 Visit Stop Time 12:04 Total Visit Minutes 40 Visit Number 4 Number of LEAD INGOT MOLDER Visits 0 PT-OP-B Current Condition Start: 11/22/22 15:01 Freq: Status: Active Protocol: Document 12/06/22 07:30 [facility] (Rec: 12/06/22 10:41 [facility] [id number]) Current Condition History of Current Condition Onset Date 6 months ago Current Complaints L TMJ History of Current Condition Pt has been seeing a DO that does craniosacral and it was helping but she hit a wall that was helping the pain any more. She went to [facility] and was considering mm relaxors. It was in L jaw and radiated down mandible and into teeth. It would also radiate down L side of neck and upper cervical of R neck. For months it was constant, and 2 days ago she went to this lady recommended by a friend. She did craniosacral and some myofascial release along the jaw and they made a good amount of progress in the session. At this moment, she feels it but it is no longer screaming at her. She had cataract surgery on L eye and right after that she had pain after. She is having trouble with the eye. She was supposed to not have to wear glasses and still has to and there is just a tug to her L lat eye and there is a viscous watering. L eye is also painful. It feels sore. Pain inc w/eating and had to do soft foods only. She eats mostly on R. The electric toothbrush hurts teeth. sometimes just moving around irritates it. It is now in the lower jaw. The vibration of talking irritates that. Denies DOMINGUEZ. Typically no dizziness or lightheadeness but the other day. She just got up out of bed and was dizzy and was careful and it went away quickly. Has not had it sense. Treatment Goals Patient/Caregiver Goals dec jaw pain, eat w/o pain, no constant pain PT-OP-C Subjective Start: 11/22/22 15:01 Freq: Status: Active Protocol: Document 02/22/23 11:24 [facility] (Rec: 02/22/23 13:04 [facility] [id number]) OP-PT Subjective Patient Comments Patient Comments She had to stop neuroacupuncture. She felt like 10 days ago, she hit the wall with doing too much stuff . She was seeing him, PT, and did needling w/fluid at . So far she doesn't feel a difference (this was 02/08). The weekend after the , she was exhausted and felt she was doing more than her system could process. Has been resting ever since. [place] and plans to rest while there. Jaw is better, but eye is still a problem. Still feels it constantly but wouldn't callit pain. Clicking in L jaw every now and then. Pt reports L ring finger tingling mostly at tip for the past 2-3 weeks. PT-OP-F Manual Assessment Start: 11/22/22 15:01 Freq: Status: Active Protocol: Document 12/06/22 07:30 [facility] (Rec: 12/06/22 10:41 [facility] [id number]) Manual Assessments Soft Tissue Assessment Soft Tissue Mobility Assessment tightness on L masseter, temporalis, B digastric & pterygoids, L>R scalenes, B SCM, L>R cervical paraspinals Joint Mobility Assessment Joint Mobility Assessment L 1st rib elevated, L shear of C1 and 2 and R rot PT-OP-K Range of Motion Start: 11/22/22 15:01 Freq: Status: Active Protocol: Document 02/22/23 11:24 [facility] (Rec: 02/22/23 13:04 [facility] [id number]) Cervical Spine Range of Motion Cervical Spine Active Degrees Flexion 68 Extension 64 Rotation Left 66 Rotation Right 70 Lateral Flexion Left 39 Lateral Flexion Right 43 Comments pain w/ext TMJ Range of Motion Jaw Openning Jaw Openning (mm) 34 Comments Comments deviation L at end range PT-OP-L Special Tests Start: 11/22/22 15:01 Freq: Status: Active Protocol: Document 12/06/22 07:30 [facility] (Rec: 12/06/22 10:41 [facility] [id number]) Special Tests Cervical Spine Special Tests Traction Test Results neg arterial screening Comments carotid and heart ausciltation : WNL Spurling's Test Test Results neg Other Special Tests Special Tests BP:120/73 PT-OP-Q Treatments Start: 11/22/22 15:01 Freq: Status: Active Protocol: Document 02/22/23 11:24 [facility] (Rec: 02/22/23 13:04 [facility] [id number]) Therapeutic Exercises Sitting Exercises ROM Sitting Exercise Name cervical all planes w/ goniometry median and ulnar nerve Sitting Exercise Name ulnar n glide Side left Reps/Minutes 10 jaw opening Sitting Exercise Name ROM measures and assessment Reps/Minutes 10 Manual Therapy Treatment Soft Tissue Mobilization jaw Mobilization Type Myofascial Release,Rolling, Sustained Pressure Intensity/Depth Moderate Comments Temporalis, masseter R>L w/ jaw opening cranial fascia Body Location B Mobilization Type Myofascial Release Intensity/Depth Superficial Body Position Supine Joint Mobilizations jaw Comments L AP FM cranium Comments 1. temporal inf and rot L FM 2. zygomatic inf FM L 3. parietal L FM PT-OP-R Modalities Start: 11/22/22 15:01 Freq: Status: Active Protocol: Document 01/23/23 10:31 [facility] (Rec: 01/23/23 11:28 [facility] [id number]) Hot Pack/Cold Pack Treatment Cold Pack Location neck & jaw Patient Position Hooklying Treatment Duration (minutes) 10 PT-OP-T Assessment and Plan Start: 11/22/22 15:01 Freq: Status: Active Protocol: Document 02/22/23 11:24 [facility] (Rec: 02/22/23 13:04 [facility] [id number]) Physical Therapy Assessment Goals pain Short Term Goal (STG) Pt will report no constant jaw pain throughout day. 01/09-still constant but less pain level 02/22-wouldn't call it a constant pain but discomfort; do not feel the teeth as much anymore STG Duration 03/24/23 Longterm Goal (LTG) Pt will be able to talk and eat w/o inc jaw pain. 01/09-still constant but less pain level 02/22-still inc pain LTG Duration cervical ROM Longterm Goal (LTG) Pt will have full cervical ROM w/o inc pain in order to allow pt to do typical ADLs w/ o inc pain. 01/09-improved in most planes. She LTG Duration achieved 02/22 jaw opening Short Term Goal (STG) Pt will be able to open jaw at least 33 mm 01/09-26 mm today STG Duration achieved 02/22 Outreach Director Goal (LTG) Pt will be able to open jaw at least 40 mm w/o pain and w/o deviation. LTG Duration 05/03/23 Assessment Summary Assessment Pt is making good progress w/ PT and demonstratign much improved jaw opening, less pain overall and imporved cervical ROM, but does still have constant discomfort. She has had a dec in teeth pain but cont to have pain behind L eye and was encouraged to talk to primary about further imaging and/or referral to neurology and encouraged to discuss further w/ opthamologist in Mar for appt. Pt reported relief w/tx today . Pt would benefit from cont PT to work on dec jaw pain and improving abiltiyt o eat and talk w/o inc pain Physical Therapy Plan Frequency and Duration Frequency of Treatment 1-2x/wk Duration of treatment (weeks) 10 Plan of Care Start Date 02/22/23 Plan of Care End Date 05/03/23 Therapeutic Interventions Therapeutic Interventions Home Exercise Program,Joint Mobilizations,Manual Therapy, Neuromuscular Re-education, Orthotic/Prosthetic Management ,Patient/Caregiver Education, Self-Care/Home Management,Soft Tissue Mobilization,Taping, Therapeutic Activities, Therapeutic Exercises Modalities Cold Pack/Ice Massage,Electric Stimulation,Hot Packs Next Visit Focus/Plan Next Note Type Treatment Note Next Visit Plan cont to work cranial and work on cervical stability w/ isometrics & jaw opening
--- NOTE | 2023-02-22 13:05 | PT.OPPOC ---
Physical, Occupational & Speech Therapy At [facility] Current Diagnoses Arthralgia of bilateral temporomandibular joint (02/22/23) Cervicalgia (02/22/23) Abnormal posture (02/22/23) Visit Care Team Role Provider Type Rebeca Muñoz MD Attending Provider Non-Staff Family Provider Primary Care Provider Referring Provider Specialty: Family Practice Address: [address] [place] [address], [id number] Email: Plan Of Care PT-OP-T Assessment and Plan Start: 11/22/22 15:01 Freq: Status: Active Protocol: Document 02/22/23 11:24 [facility] (Rec: 02/22/23 13:04 [facility] [id number]) Physical Therapy Assessment Goals pain Short Term Goal (STG) Pt will report no constant jaw pain throughout day. 01/09-still constant but less pain level 02/22-wouldn't call it a constant pain but discomfort; do not feel the teeth as much anymore STG Duration 03/24/23 Gas Line Servicer Goal (LTG) Pt will be able to talk and eat w/o inc jaw pain. 01/09-still constant but less pain level 02/22-still inc pain LTG Duration cervical ROM [facility] Goal (LTG) Pt will have full cervical ROM w/o inc pain in order to allow pt to do typical ADLs w/ o inc pain. 01/09-improved in most planes. She LTG Duration achieved 02/22 jaw opening Short Term Goal (STG) Pt will be able to open jaw at least 33 mm 01/09-26 mm today STG Duration achieved 02/22 Gas Line Servicer Goal (LTG) Pt will be able to open jaw at least 40 mm w/o pain and w/o deviation. LTG Duration 05/03/23 Assessment Summary Assessment Pt is making good progress w/ PT and demonstratign much improved jaw opening, less pain overall and imporved cervical ROM, but does still have constant discomfort. She has had a dec in teeth pain but cont to have pain behind L eye and was encouraged to talk to primary about further imaging and/or referral to neurology and encouraged to discuss further w/ opthamologist in Mar for appt. Pt reported relief w/tx today . Pt would benefit from cont PT to work on dec jaw pain and improving abiltiyt o eat and talk w/o inc pain Physical Therapy Plan Frequency and Duration Frequency of Treatment 1-2x/wk Duration of treatment (weeks) 10 Plan of Care Start Date 02/22/23 Plan of Care End Date 05/03/23 Therapeutic Interventions Therapeutic Interventions Home Exercise Program,Joint Mobilizations,Manual Therapy, Neuromuscular Re-education, Orthotic/Prosthetic Management ,Patient/Caregiver Education, Self-Care/Home Management,Soft Tissue Mobilization,Taping, Therapeutic Activities, Therapeutic Exercises Modalities Cold Pack/Ice Massage,Electric Stimulation,Hot Packs Next Visit Focus/Plan Next Note Type Treatment Note Next Visit Plan cont to work cranial and work on cervical stability w/ isometrics & jaw opening Plan of Care Dates Plan of Care Start Date 02/22/23 Plan of Care End Date 05/03/23 Electronically Signed by: Diana Cardoza, PT 02/22/23 5825 If you are in agreement with this Plan of Care, please return a signed and dated copy. I have reviewed this Plan of Care and certify that the skilled therapy services above are required to meet the patient?s needs. Physician Signature Date Printed Name and Credentials Clinical Instructor Signature Printed Name and Credentials
--- NOTE | 2023-03-14 15:20 | PT.OTN ---
Current Diagnoses Arthralgia of bilateral temporomandibular joint (03/14/23) Cervicalgia (03/14/23) Abnormal posture (03/14/23) Physical Therapy Treatment Note PT-OP-A Visit Information Start: 11/22/22 15:01 Freq: Status: Active Protocol: Document 03/14/23 14:38 [facility] (Rec: 03/14/23 15:20 [facility] [id number]) Out-Patient Physical Therapy Visit Information Visit Information Visit Type Treatment Note Visit Note 04/14 Visit Start Time 14:36 Visit Stop Time 15:25 Total Visit Minutes 49 Visit Number 5 Number of INSURANCE VERIFIER Visits 0 PT-OP-B Current Condition Start: 11/22/22 15:01 Freq: Status: Active Protocol: Document 12/06/22 07:30 [facility] (Rec: 12/06/22 10:41 [facility] [id number]) Current Condition History of Current Condition Onset Date 6 months ago Current Complaints L TMJ History of Current Condition Pt has been seeing a DO that does craniosacral and it was helping but she hit a wall that was helping the pain any more. She went to [facility] and was considering mm relaxors. It was in L jaw and radiated down mandible and into teeth. It would also radiate down L side of neck and upper cervical of R neck. For months it was constant, and 2 days ago she went to this lady recommended by a friend. She did craniosacral and some myofascial release along the jaw and they made a good amount of progress in the session. At this moment, she feels it but it is no longer screaming at her. She had cataract surgery on L eye and right after that she had pain after. She is having trouble with the eye. She was supposed to not have to wear glasses and still has to and there is just a tug to her L lat eye and there is a viscous watering. L eye is also painful. It feels sore. Pain inc w/eating and had to do soft foods only. She eats mostly on R. The electric toothbrush hurts teeth. sometimes just moving around irritates it. It is now in the lower jaw. The vibration of talking irritates that. Denies DOMINGUEZ. Typically no dizziness or lightheadeness but the other day. She just got up out of bed and was dizzy and was careful and it went away quickly. Has not had it sense. Treatment Goals Patient/Caregiver Goals dec jaw pain, eat w/o pain, no constant pain PT-OP-C Subjective Start: 11/22/22 15:01 Freq: Status: Active Protocol: Document 03/14/23 14:38 [facility] (Rec: 03/14/23 15:20 [facility] [id number]) OP-PT Subjective Patient Comments Patient Comments Pt reprots resting while on vacation, she feels better. Her constant tearing slowed down and pain behind eye a little better and jaw is better but has to be careful when opening as it sometimes catching on L. Constant pain L jaw. Teeth pain is gone. PT-OP-F Manual Assessment Start: 11/22/22 15:01 Freq: Status: Active Protocol: Document 12/06/22 07:30 [facility] (Rec: 12/06/22 10:41 [facility] [id number]) Manual Assessments Soft Tissue Assessment Soft Tissue Mobility Assessment tightness on L masseter, temporalis, B digastric & pterygoids, L>R scalenes, B SCM, L>R cervical paraspinals Joint Mobility Assessment Joint Mobility Assessment L 1st rib elevated, L shear of C1 and 2 and R rot PT-OP-K Range of Motion Start: 11/22/22 15:01 Freq: Status: Active Protocol: Document 02/22/23 11:24 [facility] (Rec: 02/22/23 13:04 [facility] [id number]) Cervical Spine Range of Motion Cervical Spine Active Degrees Flexion 68 Extension 64 Rotation Left 66 Rotation Right 70 Lateral Flexion Left 39 Lateral Flexion Right 43 Comments pain w/ext TMJ Range of Motion Jaw Openning Jaw Openning (mm) 34 Comments Comments deviation L at end range PT-OP-L Special Tests Start: 11/22/22 15:01 Freq: Status: Active Protocol: Document 12/06/22 07:30 [facility] (Rec: 12/06/22 10:41 [facility] [id number]) Special Tests Cervical Spine Special Tests Traction Test Results neg arterial screening Comments carotid and heart ausciltation : WNL Spurling's Test Test Results neg Other Special Tests Special Tests BP:120/73 PT-OP-Q Treatments Start: 11/22/22 15:01 Freq: Status: Active Protocol: Document 03/14/23 14:38 [facility] (Rec: 03/14/23 15:20 [facility] [id number]) Therapeutic Exercises Sitting Exercises ROM Sitting Exercise Name Jaw opening w/monitoring motion jaw opening Sitting Exercise Name in mirror w/focus on helping w /hadns to avoid deviation Reps/Minutes 5 min Manual Therapy Treatment Soft Tissue Mobilization cervical Body Location B SO & SCM Mobilization Type Rolling,Sustained Pressure Intensity/Depth Moderate jaw Mobilization Type Myofascial Release,Rolling, Sustained Pressure Intensity/Depth Moderate Comments Temporalis, masseter R>L , digastric, med ptyergoid w/jaw opening Joint Mobilizations cervical Comments c1 and c2 transverse R and UAP L FM cranium Comments 1. temporal inf and rot L FM 2. zygomatic inf FM L PT-OP-R Modalities Start: 11/22/22 15:01 Freq: Status: Active Protocol: Document 03/14/23 14:38 [facility] (Rec: 03/14/23 15:20 [facility] [id number]) Hot Pack/Cold Pack Treatment Cold Pack Location neck & jaw Patient Position Hooklying Treatment Duration (minutes) 10 PT-OP-T Assessment and Plan Start: 11/22/22 15:01 Freq: Status: Active Protocol: Document 03/14/23 14:38 [facility] (Rec: 03/14/23 15:20 [facility] [id number]) Physical Therapy Assessment Goals pain Short Term Goal (STG) Pt will report no constant jaw pain throughout day. 01/09-still constant but less pain level 02/22-wouldn't call it a constant pain but discomfort; do not feel the teeth as much anymore STG Duration 03/24/23 Half-Way Goal (LTG) Pt will be able to talk and eat w/o inc jaw pain. 01/09-still constant but less pain level 02/22-still inc pain LTG Duration cervical ROM Fleece Tier Goal (LTG) Pt will have full cervical ROM w/o inc pain in order to allow pt to do typical ADLs w/ o inc pain. 01/09-improved in most planes. She LTG Duration achieved 02/22 jaw opening Short Term Goal (STG) Pt will be able to open jaw at least 33 mm 01/09-26 mm today STG Duration achieved 02/22 Half-Way Goal (LTG) Pt will be able to open jaw at least 40 mm w/o pain and w/o deviation. LTG Duration 05/03/23 Assessment Summary Assessment improved jaw opening from 34 mm to 38 mm w/manual. She is overall doing better and cont to advance w/jaw mobility andd ec pain. less deviation after manual Physical Therapy Plan Frequency and Duration Frequency of Treatment 1-2x/wk Duration of treatment (weeks) 10 Plan of Care Start Date 02/22/23 Plan of Care End Date 05/03/23 Next Visit Focus/Plan Next Note Type Treatment Note Next Visit Plan cont to work cranial and work on cervical stability w/ isometrics & jaw opening
--- NOTE | 2023-03-28 13:00 | PT.OTN ---
Current Diagnoses Arthralgia of bilateral temporomandibular joint (03/28/23) Cervicalgia (03/28/23) Abnormal posture (03/28/23) Physical Therapy Treatment Note PT-OP-A Visit Information Start: 11/22/22 15:01 Freq: Status: Active Protocol: Document 03/28/23 12:16 [facility] (Rec: 03/28/23 13:01 SP [id number]) Out-Patient Physical Therapy Visit Information Visit Information Visit Type Treatment Note Visit Note 05/12 Visit Start Time 12:16 Visit Stop Time 13:00 Visit Number 6 Number of MEDICAL LAB TECHNOLOGIST Visits 1 PT-OP-B Current Condition Start: 11/22/22 15:01 Freq: Status: Active Protocol: Document 12/06/22 07:30 [facility] (Rec: 12/06/22 10:41 [facility] [id number]) Current Condition History of Current Condition Onset Date 6 months ago Current Complaints L TMJ History of Current Condition Pt has been seeing a DO that does craniosacral and it was helping but she hit a wall that was helping the pain any more. She went to [facility] and was considering mm relaxors. It was in L jaw and radiated down mandible and into teeth. It would also radiate down L side of neck and upper cervical of R neck. For months it was constant, and 2 days ago she went to this lady recommended by a friend. She did craniosacral and some myofascial release along the jaw and they made a good amount of progress in the session. At this moment, she feels it but it is no longer screaming at her. She had cataract surgery on L eye and right after that she had pain after. She is having trouble with the eye. She was supposed to not have to wear glasses and still has to and there is just a tug to her L lat eye and there is a viscous watering. L eye is also painful. It feels sore. Pain inc w/eating and had to do soft foods only. She eats mostly on R. The electric toothbrush hurts teeth. sometimes just moving around irritates it. It is now in the lower jaw. The vibration of talking irritates that. Denies DOMINGUEZ. Typically no dizziness or lightheadeness but the other day. She just got up out of bed and was dizzy and was careful and it went away quickly. Has not had it sense. Treatment Goals Patient/Caregiver Goals dec jaw pain, eat w/o pain, no constant pain PT-OP-C Subjective Start: 11/22/22 15:01 Freq: Status: Active Protocol: Document 03/28/23 12:16 SP (Rec: 03/28/23 13:01 SP [id number]) OP-PT Subjective Patient Comments Patient Comments Pt reports doing ok today, had an acupuncture nurishing tx yesterday which helped. Seeing physician tomorrow, still feeling hinge discomfort L TMJ specific, request maybe an xray. Had an MRI recently and sees a neurologist discuss the spot and why eye and facial nerve flared up. PT-OP-F Manual Assessment Start: 11/22/22 15:01 Freq: Status: Active Protocol: Document 12/06/22 07:30 [facility] (Rec: 12/06/22 10:41 [facility] [id number]) Manual Assessments Soft Tissue Assessment Soft Tissue Mobility Assessment tightness on L masseter, temporalis, B digastric & pterygoids, L>R scalenes, B SCM, L>R cervical paraspinals Joint Mobility Assessment Joint Mobility Assessment L 1st rib elevated, L shear of C1 and 2 and R rot PT-OP-K Range of Motion Start: 11/22/22 15:01 Freq: Status: Active Protocol: Document 02/22/23 11:24 [facility] (Rec: 02/22/23 13:04 [facility] [id number]) Cervical Spine Range of Motion Cervical Spine Active Degrees Flexion 68 Extension 64 Rotation Left 66 Rotation Right 70 Lateral Flexion Left 39 Lateral Flexion Right 43 Comments pain w/ext TMJ Range of Motion Jaw Openning Jaw Openning (mm) 34 Comments Comments deviation L at end range PT-OP-L Special Tests Start: 11/22/22 15:01 Freq: Status: Active Protocol: Document 12/06/22 07:30 [facility] (Rec: 12/06/22 10:41 [facility] [id number]) Special Tests Cervical Spine Special Tests Traction Test Results neg arterial screening Comments carotid and heart ausciltation : WNL Spurling's Test Test Results neg Other Special Tests Special Tests BP:120/73 PT-OP-Q Treatments Start: 11/22/22 15:01 Freq: Status: Active Protocol: Document 03/28/23 12:16 SP (Rec: 03/28/23 13:01 SP [id number]) Therapeutic Exercises Sitting Exercises ROM Sitting Exercise Name 1. CS AROM rotation 2. Jaw opening w/monitoring motion median and ulnar nerve Sitting Exercise Name ulnar n glide Side left Reps/Minutes 10 Comments manual, self Standing Exercises ext Standing Exercise Name rows & ext Side bilateral Resistance TB #1 Reps/Minutes 10 reps Manual Therapy Treatment Soft Tissue Mobilization intra-oral Body Location Masseter, Med ptyergoid, lateral pterygoid Mobilization Type Myofascial Release,Rolling, Sustained Pressure,Other Intensity/Depth Moderate Body Position Hooklying Comments manual STMs and MWM open/close jaw, discuss intraoral self, point specific tender/pain lateral ptyergoid cervical Body Location L>R SO & SCM, Scalenes Mobilization Type Rolling,Sustained Pressure Intensity/Depth Moderate Body Position Hooklying jaw Mobilization Type Myofascial Release,Rolling, Sustained Pressure Intensity/Depth Moderate Comments Temporalis, masseter L>R , digastric, suprahyoids cranial fascia Body Location B Mobilization Type Myofascial Release Intensity/Depth Superficial Body Position Supine Joint Mobilizations jaw Comments L toward R viering pressure FM open/close PT-OP-R Modalities Start: 11/22/22 15:01 Freq: Status: Active Protocol: Document 03/14/23 14:38 [facility] (Rec: 03/14/23 15:20 [facility] [id number]) Hot Pack/Cold Pack Treatment Cold Pack Location neck & jaw Patient Position Hooklying Treatment Duration (minutes) 10 PT-OP-T Assessment and Plan Start: 11/22/22 15:01 Freq: Status: Active Protocol: Document 03/28/23 12:16 SP (Rec: 03/28/23 13:01 SP [id number]) Physical Therapy Assessment Goals pain Short Term Goal (STG) Pt will report no constant jaw pain throughout day. 01/09-still constant but less pain level 02/22-wouldn't call it a constant pain but discomfort; do not feel the teeth as much anymore STG Duration 03/24/23 Laminating Machine Feeder Goal (LTG) Pt will be able to talk and eat w/o inc jaw pain. 01/09-still constant but less pain level 02/22-still inc pain LTG Duration cervical ROM Alf Goal (LTG) Pt will have full cervical ROM w/o inc pain in order to allow pt to do typical ADLs w/ o inc pain. 01/09-improved in most planes. She LTG Duration achieved 02/22 jaw opening Short Term Goal (STG) Pt will be able to open jaw at least 33 mm 01/09-26 mm today STG Duration achieved 02/22 Laminating Machine Feeder Goal (LTG) Pt will be able to open jaw at least 40 mm w/o pain and w/o deviation. LTG Duration 05/03/23 Assessment Summary Assessment ROM: pre & post manual/ex 28mm . Pt reports decreased neck and L TMJ tension post manual with improved cervical rotation. She reports still acute point specific pain over lateral pterygoid closest to zygomatic arch/maxilla. Improved open/close jaw post resistance manual/self and use of mirror self corrections, diminished L deviation. Physical Therapy Plan Frequency and Duration Frequency of Treatment 1-2x/wk Duration of treatment (weeks) 10 Plan of Care Start Date 02/22/23 Plan of Care End Date 05/03/23 Therapeutic Interventions Therapeutic Interventions Home Exercise Program,Joint Mobilizations,Manual Therapy, Neuromuscular Re-education, Orthotic/Prosthetic Management ,Patient/Caregiver Education, Self-Care/Home Management,Soft Tissue Mobilization,Taping, Therapeutic Activities, Therapeutic Exercises Modalities Cold Pack/Ice Massage,Electric Stimulation,Hot Packs Next Visit Focus/Plan Next Note Type Treatment Note Next Visit Plan cont to work cranial and work on cervical stability w/ isometrics & jaw opening
--- NOTE | 2023-04-10 13:45 | PT.OTN ---
Current Diagnoses Arthralgia of bilateral temporomandibular joint (04/10/23) Cervicalgia (04/10/23) Abnormal posture (04/10/23) Physical Therapy Treatment Note PT-OP-A Visit Information Start: 11/22/22 15:01 Freq: Status: Active Protocol: Document 04/10/23 13:04 SP (Rec: 04/10/23 13:49 SP [id number]) Out-Patient Physical Therapy Visit Information Visit Information Visit Type Treatment Note Visit Note 06/12 Visit Start Time 13:04 Visit Stop Time 13:45 Visit Number 7 Number of WEAPONS SYSTEM INSTRUMENT MECHANIC Visits 2 PT-OP-B Current Condition Start: 11/22/22 15:01 Freq: Status: Active Protocol: Document 12/06/22 07:30 [facility] (Rec: 12/06/22 10:41 [facility] [id number]) Current Condition History of Current Condition Onset Date 6 months ago Current Complaints L TMJ History of Current Condition Pt has been seeing a DO that does craniosacral and it was helping but she hit a wall that was helping the pain any more. She went to [facility] and was considering mm relaxors. It was in L jaw and radiated down mandible and into teeth. It would also radiate down L side of neck and upper cervical of R neck. For months it was constant, and 2 days ago she went to this lady recommended by a friend. She did craniosacral and some myofascial release along the jaw and they made a good amount of progress in the session. At this moment, she feels it but it is no longer screaming at her. She had cataract surgery on L eye and right after that she had pain after. She is having trouble with the eye. She was supposed to not have to wear glasses and still has to and there is just a tug to her L lat eye and there is a viscous watering. L eye is also painful. It feels sore. Pain inc w/eating and had to do soft foods only. She eats mostly on R. The electric toothbrush hurts teeth. sometimes just moving around irritates it. It is now in the lower jaw. The vibration of talking irritates that. Denies DOMINGUEZ. Typically no dizziness or lightheadeness but the other day. She just got up out of bed and was dizzy and was careful and it went away quickly. Has not had it sense. Treatment Goals Patient/Caregiver Goals dec jaw pain, eat w/o pain, no constant pain PT-OP-C Subjective Start: 11/22/22 15:01 Freq: Status: Active Protocol: Document 04/10/23 13:04 SP (Rec: 04/10/23 13:49 SP [id number]) OP-PT Subjective Patient Comments Patient Comments Pt reports she thinks the steroid shots in her eye have made a significant reduction with inflammation in L side of her face. She is realizing there is still 1 point L TMJ: occasional open/close slowly but chewing seems irriating. Tender over L TMJ, over activation and would prefer craniosacral and activities to not lean on R UE using computer. Ulnar nerve glide& stretch improving quite a reduction tingling in to mainly 4th. PT-OP-F Manual Assessment Start: 11/22/22 15:01 Freq: Status: Active Protocol: Document 12/06/22 07:30 [facility] (Rec: 12/06/22 10:41 [facility] [id number]) Manual Assessments Soft Tissue Assessment Soft Tissue Mobility Assessment tightness on L masseter, temporalis, B digastric & pterygoids, L>R scalenes, B SCM, L>R cervical paraspinals Joint Mobility Assessment Joint Mobility Assessment L 1st rib elevated, L shear of C1 and 2 and R rot PT-OP-K Range of Motion Start: 11/22/22 15:01 Freq: Status: Active Protocol: Document 02/22/23 11:24 [facility] (Rec: 02/22/23 13:04 [facility] [id number]) Cervical Spine Range of Motion Cervical Spine Active Degrees Flexion 68 Extension 64 Rotation Left 66 Rotation Right 70 Lateral Flexion Left 39 Lateral Flexion Right 43 Comments pain w/ext TMJ Range of Motion Jaw Openning Jaw Openning (mm) 34 Comments Comments deviation L at end range PT-OP-L Special Tests Start: 11/22/22 15:01 Freq: Status: Active Protocol: Document 12/06/22 07:30 [facility] (Rec: 12/06/22 10:41 [facility] [id number]) Special Tests Cervical Spine Special Tests Traction Test Results neg arterial screening Comments carotid and heart ausciltation : WNL Spurling's Test Test Results neg Other Special Tests Special Tests BP:120/73 PT-OP-Q Treatments Start: 11/22/22 15:01 Freq: Status: Active Protocol: Document 04/10/23 13:04 SP (Rec: 04/10/23 13:49 SP [id number]) Therapeutic Exercises Supine Exercises foam roll Supine Exercise Name pec stretch various angles, T, Y, 1/2 X, Ws Side bilateral Resistance AROM> TB #1 Equipment Used spine on top/along noodle Reps/Minutes 30 total stretch, 10 reps each /c TB Comments cued slow pacing, painfree range Sitting Exercises tricep ext Sitting Exercise Name added to HEP: slight abd 1/2 X range Side left Resistance TB #1 Equipment Used opp anchored at chest Reps/Minutes 15 Comments good feedback active effort post scap and tricep median and ulnar nerve Sitting Exercise Name ulnar n glide Side left Reps/Minutes 10 Comments self- improvement reduction tinging into 4th dip jaw opening Sitting Exercise Name supine: resisted submandible- decrease tension in TMJ and click feel on L Reps/Minutes 10 reps Comments cued slow ROM open/close, encouraged continue home in from mirror for align Manual Therapy Treatment Joint Mobilizations CranialSacral Therapy Joint sphenoid, parietal, frontal, mandible decompression Grade I Body Position Hooklying Comments very light/ gentle decompression- good relaxing response, I can feel like my head is so open. cranium Comments 1. temporal inf ear pull 2. zygomatic inf FM L PT-OP-R Modalities Start: 11/22/22 15:01 Freq: Status: Active Protocol: Document 03/14/23 14:38 [facility] (Rec: 03/14/23 15:20 [facility] [id number]) Hot Pack/Cold Pack Treatment Cold Pack Location neck & jaw Patient Position Hooklying Treatment Duration (minutes) 10 PT-OP-T Assessment and Plan Start: 11/22/22 15:01 Freq: Status: Active Protocol: Document 04/10/23 13:04 SP (Rec: 04/10/23 13:49 SP [id number]) Physical Therapy Assessment Goals pain Short Term Goal (STG) Pt will report no constant jaw pain throughout day. 01/09-still constant but less pain level 02/22-wouldn't call it a constant pain but discomfort; do not feel the teeth as much anymore STG Duration 03/24/23 Intermediate Goal (LTG) Pt will be able to talk and eat w/o inc jaw pain. 01/09-still constant but less pain level 02/22-still inc pain LTG Duration cervical ROM Intermediate Goal (LTG) Pt will have full cervical ROM w/o inc pain in order to allow pt to do typical ADLs w/ o inc pain. 01/09-improved in most planes. She LTG Duration achieved 02/22 jaw opening Short Term Goal (STG) Pt will be able to open jaw at least 33 mm 01/09-26 mm today STG Duration achieved 02/22 Historic Sites Supervisor Goal (LTG) Pt will be able to open jaw at least 40 mm w/o pain and w/o deviation. LTG Duration 05/03/23 Assessment Summary Assessment Pt good response to manual my head feels more open. Good feedback post scap/UE engagement and stretch anterior chain over noodle, cues for jaw and CS retraction neutral, painfree in TMJ. Reports less tingling feeling L 4th finger tip. Good feedback decrease TMJ strain with resistance sub mandible open/close. Pt declined HO for supine BUE Ts/Ys/Ws added resistance over noodle and resisted tricep ext seated more activated UE D1 ext noted decreased ulnar nerve tension for home carryover strengthening. Physical Therapy Plan Frequency and Duration Frequency of Treatment 1-2x/wk Duration of treatment (weeks) 10 Plan of Care Start Date 02/22/23 Plan of Care End Date 05/03/23 Therapeutic Interventions Therapeutic Interventions Home Exercise Program,Joint Mobilizations,Manual Therapy, Neuromuscular Re-education, Orthotic/Prosthetic Management ,Patient/Caregiver Education, Self-Care/Home Management,Soft Tissue Mobilization,Taping, Therapeutic Activities, Therapeutic Exercises Modalities Cold Pack/Ice Massage,Electric Stimulation,Hot Packs Next Visit Focus/Plan Next Note Type Treatment Note Next Visit Plan Assess added UE resisted HEP with CS and TMJ alignment awareness. POC: cont to work cranial and work on cervical stability w/ isometrics & jaw opening
--- NOTE | 2023-04-24 15:25 | PT.OTN ---
Current Diagnoses Arthralgia of bilateral temporomandibular joint (04/24/23) Cervicalgia (04/24/23) Abnormal posture (04/24/23) Physical Therapy Treatment Note PT-OP-A Visit Information Start: 11/22/22 15:01 Freq: Status: Active Protocol: Document 04/24/23 13:48 [facility] (Rec: 04/24/23 15:25 [facility] [id number]) Out-Patient Physical Therapy Visit Information Visit Information Visit Type Progress Note Visit Note 03/14 Visit Start Time 13:47 Visit Stop Time 14:30 Visit Number 20 Number of ACCOUNTANT COST Visits 0 PT-OP-B Current Condition Start: 11/22/22 15:01 Freq: Status: Active Protocol: Document 12/06/22 07:30 [facility] (Rec: 12/06/22 10:41 [facility] [id number]) Current Condition History of Current Condition Onset Date 6 months ago Current Complaints L TMJ History of Current Condition Pt has been seeing a DO that does craniosacral and it was helping but she hit a wall that was helping the pain any more. She went to [facility] and was considering mm relaxors. It was in L jaw and radiated down mandible and into teeth. It would also radiate down L side of neck and upper cervical of R neck. For months it was constant, and 2 days ago she went to this lady recommended by a friend. She did craniosacral and some myofascial release along the jaw and they made a good amount of progress in the session. At this moment, she feels it but it is no longer screaming at her. She had cataract surgery on L eye and right after that she had pain after. She is having trouble with the eye. She was supposed to not have to wear glasses and still has to and there is just a tug to her L lat eye and there is a viscous watering. L eye is also painful. It feels sore. Pain inc w/eating and had to do soft foods only. She eats mostly on R. The electric toothbrush hurts teeth. sometimes just moving around irritates it. It is now in the lower jaw. The vibration of talking irritates that. Denies DOMINGUEZ. Typically no dizziness or lightheadeness but the other day. She just got up out of bed and was dizzy and was careful and it went away quickly. Has not had it sense. Treatment Goals Patient/Caregiver Goals dec jaw pain, eat w/o pain, no constant pain PT-OP-C Subjective Start: 11/22/22 15:01 Freq: Status: Active Protocol: Document 04/24/23 13:48 [facility] (Rec: 04/24/23 15:25 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 THere is still one spot that hasn't gone away in L jaw. She feels like she is on the mend. She had the needling on that spot. Patient Reported Progress Improving PT-OP-F Manual Assessment Start: 11/22/22 15:01 Freq: Status: Active Protocol: Document 12/06/22 07:30 [facility] (Rec: 12/06/22 10:41 [facility] [id number]) Manual Assessments Soft Tissue Assessment Soft Tissue Mobility Assessment tightness on L masseter, temporalis, B digastric & pterygoids, L>R scalenes, B SCM, L>R cervical paraspinals Joint Mobility Assessment Joint Mobility Assessment L 1st rib elevated, L shear of C1 and 2 and R rot PT-OP-K Range of Motion Start: 11/22/22 15:01 Freq: Status: Active Protocol: Document 04/24/23 13:48 [facility] (Rec: 04/24/23 15:25 [facility] [id number]) TMJ Range of Motion Jaw Openning Jaw Openning (mm) 34 Comments Comments pain at end range PT-OP-L Special Tests Start: 11/22/22 15:01 Freq: Status: Active Protocol: Document 12/06/22 07:30 [facility] (Rec: 12/06/22 10:41 [facility] [id number]) Special Tests Cervical Spine Special Tests Traction Test Results neg arterial screening Comments carotid and heart ausciltation : WNL Spurling's Test Test Results neg Other Special Tests Special Tests BP:120/73 PT-OP-Q Treatments Start: 11/22/22 15:01 Freq: Status: Active Protocol: Document 04/24/23 13:48 [facility] (Rec: 04/24/23 15:25 [facility] [id number]) Manual Therapy Treatment Soft Tissue Mobilization cervical Body Location L>R SO & SCM, Scalenes Mobilization Type Rolling,Sustained Pressure Intensity/Depth Moderate Body Position Hooklying jaw Mobilization Type Myofascial Release,Rolling, Sustained Pressure Intensity/Depth Moderate Comments Temporalis, masseter L>R , digastric, suprahyoids cranial fascia Body Location B Mobilization Type Myofascial Release Intensity/Depth Superficial Body Position Supine Joint Mobilizations cervical Comments transverse R C1 and UPA L Self-Care/Home Management Treatment Education Other Education 15 min: discussed pelvic floor and jaw connection and research finding connection. Edu on pelvic floor therapy and transition towards that. Discussed importance of cont posture work and what arthritis means PT-OP-R Modalities Start: 11/22/22 15:01 Freq: Status: Active Protocol: Document 03/14/23 14:38 [facility] (Rec: 03/14/23 15:20 [facility] [id number]) Hot Pack/Cold Pack Treatment Cold Pack Location neck & jaw Patient Position Hooklying Treatment Duration (minutes) 10 PT-OP-T Assessment and Plan Start: 11/22/22 15:01 Freq: Status: Active Protocol: Document 04/24/23 13:48 [facility] (Rec: 04/24/23 15:25 [facility] [id number]) Physical Therapy Assessment Goals pain Short Term Goal (STG) Pt will report no constant jaw pain throughout day. 01/09-still constant but less pain level 02/22-wouldn't call it a constant pain but discomfort; do not feel the teeth as much anymore STG Duration achieved 04/24 Senior Living Goal (LTG) Pt will be able to talk and eat w/o inc jaw pain. 01/09-still constant but less pain level 02/22-still inc pain 04/24-pain level is low; eats everything now but it gets mildly sore LTG Duration 06/14 cervical ROM Coffee Machine Technician Goal (LTG) Pt will have full cervical ROM w/o inc pain in order to allow pt to do typical ADLs w/ o inc pain. 01/09-improved in most planes. She LTG Duration achieved 02/22 jaw opening Short Term Goal (STG) Pt will be able to open jaw at least 33 mm 01/09-26 mm today STG Duration achieved 02/22 Coffee Machine Technician Goal (LTG) Pt will be able to open jaw at least 40 mm w/o pain and w/o deviation. 04/24-34mm LTG Duration 06/26 Assessment Summary Assessment Pt reports jaw is no longer catching and is showing improved opening w/less deviation but still paina t end range. Pt is to work on HEP over next efw weeks and follow up w/PT and consider DC to HEP as long as she does well on her own. She cont to improve but does still have tightness. Cont PT as needed for dec pain w/opening. Physical Therapy Plan Frequency and Duration Frequency of Treatment 1x/wk Duration of treatment (weeks) 8 Plan of Care Start Date 04/24/23 Plan of Care End Date 06/27/23 Therapeutic Interventions Therapeutic Interventions Home Exercise Program,Joint Mobilizations,Manual Therapy, Neuromuscular Re-education, Orthotic/Prosthetic Management ,Patient/Caregiver Education, Self-Care/Home Management,Soft Tissue Mobilization,Taping, Therapeutic Activities, Therapeutic Exercises Modalities Cold Pack/Ice Massage,Electric Stimulation,Hot Packs Next Visit Focus/Plan Next Note Type Discharge Summary Next Visit Plan plan for possible DC next session
--- NOTE | 2023-04-24 15:26 | PT.OPPOC ---
Physical, Occupational & Speech Therapy At [facility] Current Diagnoses Arthralgia of bilateral temporomandibular joint (04/24/23) Cervicalgia (04/24/23) Abnormal posture (04/24/23) Visit Care Team Role Provider Type Rebeca Muñoz MD Attending Provider Non-Staff Family Provider Primary Care Provider Referring Provider Specialty: Family Practice Address: [address] [place] [address], [id number] Email: Plan Of Care PT-OP-T Assessment and Plan Start: 11/22/22 15:01 Freq: Status: Active Protocol: Document 04/24/23 13:48 [facility] (Rec: 04/24/23 15:25 [facility] [id number]) Physical Therapy Assessment Goals pain Short Term Goal (STG) Pt will report no constant jaw pain throughout day. 01/09-still constant but less pain level 02/22-wouldn't call it a constant pain but discomfort; do not feel the teeth as much anymore STG Duration achieved 04/24 Half-Way Goal (LTG) Pt will be able to talk and eat w/o inc jaw pain. 01/09-still constant but less pain level 02/22-still inc pain 04/24-pain level is low; eats everything now but it gets mildly sore LTG Duration 06/14 cervical ROM Half-Way Goal (LTG) Pt will have full cervical ROM w/o inc pain in order to allow pt to do typical ADLs w/ o inc pain. 01/09-improved in most planes. She LTG Duration achieved 02/22 jaw opening Short Term Goal (STG) Pt will be able to open jaw at least 33 mm 01/09-26 mm today STG Duration achieved 02/22 Associate Relations Specialist Goal (LTG) Pt will be able to open jaw at least 40 mm w/o pain and w/o deviation. 04/24-34mm LTG Duration 06/26 Assessment Summary Assessment Pt reports jaw is no longer catching and is showing improved opening w/less deviation but still paina t end range. Pt is to work on HEP over next efw weeks and follow up w/PT and consider DC to HEP as long as she does well on her own. She cont to improve but does still have tightness. Cont PT as needed for dec pain w/opening. Physical Therapy Plan Frequency and Duration Frequency of Treatment 1x/wk Duration of treatment (weeks) 8 Plan of Care Start Date 04/24/23 Plan of Care End Date 06/27/23 Therapeutic Interventions Therapeutic Interventions Home Exercise Program,Joint Mobilizations,Manual Therapy, Neuromuscular Re-education, Orthotic/Prosthetic Management ,Patient/Caregiver Education, Self-Care/Home Management,Soft Tissue Mobilization,Taping, Therapeutic Activities, Therapeutic Exercises Modalities Cold Pack/Ice Massage,Electric Stimulation,Hot Packs Next Visit Focus/Plan Next Note Type Discharge Summary Next Visit Plan plan for possible DC next session Plan of Care Dates Plan of Care Start Date 04/24/23 Plan of Care End Date 06/27/23 Electronically Signed by: Diana Cardoza, PT 04/24/23 9716 If you are in agreement with this Plan of Care, please return a signed and dated copy. I have reviewed this Plan of Care and certify that the skilled therapy services above are required to meet the patient?s needs. Physician Signature Date Printed Name and Credentials Clinical Instructor Signature Printed Name and Credentials
--- NOTE | 2023-06-07 18:10 | PT.OTN ---
Current Diagnoses Arthralgia of bilateral temporomandibular joint (06/07/23) Cervicalgia (06/07/23) Abnormal posture (06/07/23) Physical Therapy Treatment Note PT-OP-A Visit Information Start: 11/22/22 15:01 Freq: Status: Active Protocol: Document 06/07/23 16:52 [facility] (Rec: 06/07/23 18:10 [facility] [id number]) Out-Patient Physical Therapy Visit Information Visit Information Visit Type Progress Note Visit Note 03/14 Visit Start Time 16:53 Visit Stop Time 17:35 Visit Number 21 Number of SEARCH ADVERTISING STRATEGIST Visits 0 PT-OP-B Current Condition Start: 11/22/22 15:01 Freq: Status: Active Protocol: Document 12/06/22 07:30 [facility] (Rec: 12/06/22 10:41 [facility] [id number]) Current Condition History of Current Condition Onset Date 6 months ago Current Complaints L TMJ History of Current Condition Pt has been seeing a DO that does craniosacral and it was helping but she hit a wall that was helping the pain any more. She went to [facility] and was considering mm relaxors. It was in L jaw and radiated down mandible and into teeth. It would also radiate down L side of neck and upper cervical of R neck. For months it was constant, and 2 days ago she went to this lady recommended by a friend. She did craniosacral and some myofascial release along the jaw and they made a good amount of progress in the session. At this moment, she feels it but it is no longer screaming at her. She had cataract surgery on L eye and right after that she had pain after. She is having trouble with the eye. She was supposed to not have to wear glasses and still has to and there is just a tug to her L lat eye and there is a viscous watering. L eye is also painful. It feels sore. Pain inc w/eating and had to do soft foods only. She eats mostly on R. The electric toothbrush hurts teeth. sometimes just moving around irritates it. It is now in the lower jaw. The vibration of talking irritates that. Denies DOMINGUEZ. Typically no dizziness or lightheadeness but the other day. She just got up out of bed and was dizzy and was careful and it went away quickly. Has not had it sense. Treatment Goals Patient/Caregiver Goals dec jaw pain, eat w/o pain, no constant pain PT-OP-C Subjective Start: 11/22/22 15:01 Freq: Status: Active Protocol: Document 06/07/23 16:52 [facility] (Rec: 06/07/23 18:10 [facility] [id number]) OP-PT Subjective Patient Comments Patient Comments Pt went back to 2 weeks ago . She had more injections and the plan is that the injections will last longer each time. She follows up in 3 months. When it got bad before last injections, it got hard to chew. Still gliches opening your mouth. The specialist has told her the point of her pain is her mm vs her jt. She had brussel sprouts for lunch that were not cooked enough and that did aggrevate it. still feels like L eye is blurry. She was told cornea is irregular and has follow up w/optomatrist who thinks it is lens that were put in. She went to someone who does reiki and PT-OP-F Manual Assessment Start: 11/22/22 15:01 Freq: Status: Active Protocol: Document 12/06/22 07:30 [facility] (Rec: 12/06/22 10:41 [facility] [id number]) Manual Assessments Soft Tissue Assessment Soft Tissue Mobility Assessment tightness on L masseter, temporalis, B digastric & pterygoids, L>R scalenes, B SCM, L>R cervical paraspinals Joint Mobility Assessment Joint Mobility Assessment L 1st rib elevated, L shear of C1 and 2 and R rot PT-OP-K Range of Motion Start: 11/22/22 15:01 Freq: Status: Active Protocol: Document 06/07/23 16:52 [facility] (Rec: 06/07/23 18:10 [facility] [id number]) TMJ Range of Motion Jaw Openning Jaw Openning (mm) 34 PT-OP-L Special Tests Start: 11/22/22 15:01 Freq: Status: Active Protocol: Document 12/06/22 07:30 [facility] (Rec: 12/06/22 10:41 [facility] [id number]) Special Tests Cervical Spine Special Tests Traction Test Results neg arterial screening Comments carotid and heart ausciltation : WNL Spurling's Test Test Results neg Other Special Tests Special Tests BP:120/73 PT-OP-Q Treatments Start: 11/22/22 15:01 Freq: Status: Active Protocol: Document 06/07/23 16:52 [facility] (Rec: 06/07/23 18:10 [facility] [id number]) Manual Therapy Treatment Soft Tissue Mobilization cervical Body Location L>R SO & SCM, Scalenes, pecs Mobilization Type Rolling,Sustained Pressure Intensity/Depth Moderate Body Position Hooklying Comments w/gentle ulnar n glide Joint Mobilizations ribs Comments caudal 1 FM thoracic Comments downglide L T1 and 2 fm cervical Comments transverse R C4-6 FM Self-Care/Home Management Treatment Education Other Education 12: discussion w/pt re: more regular PT in order to help manually w/pain and make sure she is doing exercises. edu on importance of exercises and PT to work on smaller amt to dec feeling of too much stress w/this. PT-OP-R Modalities Start: 11/22/22 15:01 Freq: Status: Active Protocol: Document 03/14/23 14:38 [facility] (Rec: 03/14/23 15:20 [facility] [id number]) Hot Pack/Cold Pack Treatment Cold Pack Location neck & jaw Patient Position Hooklying Treatment Duration (minutes) 10 PT-OP-T Assessment and Plan Start: 11/22/22 15:01 Freq: Status: Active Protocol: Document 06/07/23 16:52 [facility] (Rec: 06/07/23 18:10 [facility] [id number]) Physical Therapy Assessment Goals pain Short Term Goal (STG) Pt will report no constant jaw pain throughout day. 01/09-still constant but less pain level 02/22-wouldn't call it a constant pain but discomfort; do not feel the teeth as much anymore STG Duration achieved 04/24 Penitentiary Goal (LTG) Pt will be able to talk and eat w/o inc jaw pain. 01/09-still constant but less pain level 02/22-still inc pain 04/24-pain level is low; eats everything now but it gets mildly sore 06/06-talking doesn't seem to irritate it but eating does LTG Duration 07/18 cervical ROM Short Term Goal (STG) Pt will have full cervical ROM w/o inc pain in order to allow pt to do typical ADLs w/ o inc pain. 01/09-improved in most planes. STG Duration achieved 02/22 Gas Pit Worker Goal (LTG) Pt will report dec neck tension that radiates to jaw and down arm w/UE use LTG Duration 07/18 jaw opening Short Term Goal (STG) Pt will be able to open jaw at least 33 mm 01/09-26 mm today STG Duration achieved 02/22 Penitentiary Goal (LTG) Pt will be able to open jaw at least 40 mm w/o pain and w/o deviation. 04/24-34mm 06/06-no change LTG Duration 07/18 Assessment Summary Assessment Pt did not schedule further visits after last visist and scheduled today after call from office. At this time, cotn PT to dec neck tension and jaw tightness. Pt will need more consistent PT to help w/dec tension. Physical Therapy Plan Frequency and Duration Frequency of Treatment 1-2x/wk Duration of treatment (weeks) 6 Plan of Care Start Date 06/07/23 Plan of Care End Date 07/19/23 Therapeutic Interventions Therapeutic Interventions Home Exercise Program,Joint Mobilizations,Manual Therapy, Neuromuscular Re-education, Orthotic/Prosthetic Management ,Patient/Caregiver Education, Self-Care/Home Management,Soft Tissue Mobilization,Taping, Therapeutic Activities, Therapeutic Exercises Modalities Cold Pack/Ice Massage,Electric Stimulation,Hot Packs Next Visit Focus/Plan Next Note Type Treatment Note Next Visit Plan resume jaw exercises, review foam roll as needed, n glide manual for uppper thoracic and ribs
--- NOTE | 2023-06-07 18:11 | PT.OPPOC ---
Physical, Occupational & Speech Therapy At [facility] Current Diagnoses Arthralgia of bilateral temporomandibular joint (06/07/23) Cervicalgia (06/07/23) Abnormal posture (06/07/23) Visit Care Team Role Provider Type Rebeca Muñoz MD Attending Provider Non-Staff Family Provider Primary Care Provider Referring Provider Specialty: Family Practice Address: [address] [place] [address], [id number] Email: Plan Of Care PT-OP-T Assessment and Plan Start: 11/22/22 15:01 Freq: Status: Active Protocol: Document 06/07/23 16:52 [facility] (Rec: 06/07/23 18:10 [facility] [id number]) Physical Therapy Assessment Goals pain Short Term Goal (STG) Pt will report no constant jaw pain throughout day. 01/09-still constant but less pain level 02/22-wouldn't call it a constant pain but discomfort; do not feel the teeth as much anymore STG Duration achieved 04/24 Shelter Goal (LTG) Pt will be able to talk and eat w/o inc jaw pain. 01/09-still constant but less pain level 02/22-still inc pain 04/24-pain level is low; eats everything now but it gets mildly sore 06/06-talking doesn't seem to irritate it but eating does LTG Duration 07/18 cervical ROM Short Term Goal (STG) Pt will have full cervical ROM w/o inc pain in order to allow pt to do typical ADLs w/ o inc pain. 01/09-improved in most planes. STG Duration achieved 02/22 Business Editor Goal (LTG) Pt will report dec neck tension that radiates to jaw and down arm w/UE use LTG Duration 07/18 jaw opening Short Term Goal (STG) Pt will be able to open jaw at least 33 mm 01/09-26 mm today STG Duration achieved 02/22 Shelter Goal (LTG) Pt will be able to open jaw at least 40 mm w/o pain and w/o deviation. 04/24-34mm 06/06-no change LTG Duration 07/18 Assessment Summary Assessment Pt did not schedule further visits after last visist and scheduled today after call from office. At this time, cotn PT to dec neck tension and jaw tightness. Pt will need more consistent PT to help w/dec tension. Physical Therapy Plan Frequency and Duration Frequency of Treatment 1-2x/wk Duration of treatment (weeks) 6 Plan of Care Start Date 06/07/23 Plan of Care End Date 07/19/23 Therapeutic Interventions Therapeutic Interventions Home Exercise Program,Joint Mobilizations,Manual Therapy, Neuromuscular Re-education, Orthotic/Prosthetic Management ,Patient/Caregiver Education, Self-Care/Home Management,Soft Tissue Mobilization,Taping, Therapeutic Activities, Therapeutic Exercises Modalities Cold Pack/Ice Massage,Electric Stimulation,Hot Packs Next Visit Focus/Plan Next Note Type Treatment Note Next Visit Plan resume jaw exercises, review foam roll as needed, n glishannan manual for uppper thoracic and ribs Plan of Care Dates Plan of Care Start Date 06/07/23 Plan of Care End Date 07/19/23 Electronically Signed by: Diana Cardoza, PT 06/07/23 0886 If you are in agreement with this Plan of Care, please return a signed and dated copy. I have reviewed this Plan of Care and certify that the skilled therapy services above are required to meet the patient?s needs. Physician Signature Date Printed Name and Credentials Clinical Instructor Signature Printed Name and Credentials
--- NOTE | 2023-06-14 17:20 | PT.OTN ---
Current Diagnoses Arthralgia of bilateral temporomandibular joint (06/14/23) Cervicalgia (06/14/23) Abnormal posture (06/14/23) Physical Therapy Treatment Note PT-OP-A Visit Information Start: 11/22/22 15:01 Freq: Status: Active Protocol: Document 06/14/23 15:31 [facility] (Rec: 06/14/23 17:20 [facility] [id number]) Out-Patient Physical Therapy Visit Information Visit Information Visit Type Treatment Note Visit Note 04/14 Visit Start Time 15:21 Visit Stop Time 16:01 Visit Number 22 Number of CONTROL SYSTEMS TECHNICIAN Visits 0 PT-OP-B Current Condition Start: 11/22/22 15:01 Freq: Status: Active Protocol: Document 12/06/22 07:30 [facility] (Rec: 12/06/22 10:41 [facility] [id number]) Current Condition History of Current Condition Onset Date 6 months ago Current Complaints L TMJ History of Current Condition Pt has been seeing a DO that does craniosacral and it was helping but she hit a wall that was helping the pain any more. She went to [facility] and was considering mm relaxors. It was in L jaw and radiated down mandible and into teeth. It would also radiate down L side of neck and upper cervical of R neck. For months it was constant, and 2 days ago she went to this lady recommended by a friend. She did craniosacral and some myofascial release along the jaw and they made a good amount of progress in the session. At this moment, she feels it but it is no longer screaming at her. She had cataract surgery on L eye and right after that she had pain after. She is having trouble with the eye. She was supposed to not have to wear glasses and still has to and there is just a tug to her L lat eye and there is a viscous watering. L eye is also painful. It feels sore. Pain inc w/eating and had to do soft foods only. She eats mostly on R. The electric toothbrush hurts teeth. sometimes just moving around irritates it. It is now in the lower jaw. The vibration of talking irritates that. Denies DOMINGUEZ. Typically no dizziness or lightheadeness but the other day. She just got up out of bed and was dizzy and was careful and it went away quickly. Has not had it sense. Treatment Goals Patient/Caregiver Goals dec jaw pain, eat w/o pain, no constant pain PT-OP-C Subjective Start: 11/22/22 15:01 Freq: Status: Active Protocol: Document 06/14/23 15:31 [facility] (Rec: 06/14/23 17:20 [facility] [id number]) OP-PT Subjective Patient Comments Patient Comments Pt has been working on opening up tspine and posture. PT-OP-F Manual Assessment Start: 11/22/22 15:01 Freq: Status: Active Protocol: Document 12/06/22 07:30 [facility] (Rec: 12/06/22 10:41 [facility] [id number]) Manual Assessments Soft Tissue Assessment Soft Tissue Mobility Assessment tightness on L masseter, temporalis, B digastric & pterygoids, L>R scalenes, B SCM, L>R cervical paraspinals Joint Mobility Assessment Joint Mobility Assessment L 1st rib elevated, L shear of C1 and 2 and R rot PT-OP-K Range of Motion Start: 11/22/22 15:01 Freq: Status: Active Protocol: Document 06/07/23 16:52 [facility] (Rec: 06/07/23 18:10 [facility] [id number]) TMJ Range of Motion Jaw Openning Jaw Openning (mm) 34 PT-OP-L Special Tests Start: 11/22/22 15:01 Freq: Status: Active Protocol: Document 12/06/22 07:30 [facility] (Rec: 12/06/22 10:41 [facility] [id number]) Special Tests Cervical Spine Special Tests Traction Test Results neg arterial screening Comments carotid and heart ausciltation : WNL Spurling's Test Test Results neg Other Special Tests Special Tests BP:120/73 PT-OP-Q Treatments Start: 11/22/22 15:01 Freq: Status: Active Protocol: Document 06/14/23 15:31 [facility] (Rec: 06/14/23 17:20 [facility] [id number]) Manual Therapy Treatment Soft Tissue Mobilization thoracic Body Location serratus post sup L Mobilization Type Strumming cervical Body Location L>R SO & SCM, Scalenes, pecs Mobilization Type Rolling,Sustained Pressure Intensity/Depth Moderate Body Position Hooklying Comments w/gentle ulnar n glide Joint Mobilizations AC Joint ant L clavicle FM GH Comments post and inf glide ribs Comments caudal 1 FM thoracic Comments UPA L T1 and 2 FM cervical Comments transverse R C5-6 FM PT-OP-R Modalities Start: 11/22/22 15:01 Freq: Status: Active Protocol: Document 03/14/23 14:38 [facility] (Rec: 03/14/23 15:20 [facility] [id number]) Hot Pack/Cold Pack Treatment Cold Pack Location neck & jaw Patient Position Hooklying Treatment Duration (minutes) 10 PT-OP-T Assessment and Plan Start: 11/22/22 15:01 Freq: Status: Active Protocol: Document 06/14/23 15:31 [facility] (Rec: 06/14/23 17:20 [facility] [id number]) Physical Therapy Assessment Goals pain Short Term Goal (STG) Pt will report no constant jaw pain throughout day. 01/09-still constant but less pain level 02/22-wouldn't call it a constant pain but discomfort; do not feel the teeth as much anymore STG Duration achieved 04/24 Long-Term Goal (LTG) Pt will be able to talk and eat w/o inc jaw pain. 01/09-still constant but less pain level 02/22-still inc pain 04/24-pain level is low; eats everything now but it gets mildly sore 06/06-talking doesn't seem to irritate it but eating does LTG Duration 07/18 cervical ROM Short Term Goal (STG) Pt will have full cervical ROM w/o inc pain in order to allow pt to do typical ADLs w/ o inc pain. 01/09-improved in most planes. STG Duration achieved 02/22 Long-Term Goal (LTG) Pt will report dec neck tension that radiates to jaw and down arm w/UE use LTG Duration 07/18 jaw opening Short Term Goal (STG) Pt will be able to open jaw at least 33 mm 01/09-26 mm today STG Duration achieved 02/22 Long-Term Goal (LTG) Pt will be able to open jaw at least 40 mm w/o pain and w/o deviation. 04/24-34mm 06/06-no change LTG Duration 07/18 Assessment Summary Assessment Pt had improved overhead movement of LUE and improved L sB and R rot after manual treatment today. Physical Therapy Plan Frequency and Duration Frequency of Treatment 1-2x/wk Duration of treatment (weeks) 6 Plan of Care Start Date 06/07/23 Plan of Care End Date 07/19/23 Next Visit Focus/Plan Next Note Type Treatment Note Next Visit Plan resume jaw exercises, review foam roll as needed, n glide manual for uppper thoracic and ribs
--- NOTE | 2023-06-20 15:19 | PT.OTN ---
Current Diagnoses Arthralgia of bilateral temporomandibular joint (06/20/23) Cervicalgia (06/20/23) Abnormal posture (06/20/23) Physical Therapy Treatment Note PT-OP-A Visit Information Start: 11/22/22 15:01 Freq: Status: Active Protocol: Document 06/20/23 13:08 [facility] (Rec: 06/20/23 14:33 [facility] [id number]) Out-Patient Physical Therapy Visit Information Visit Information Visit Type Treatment Note Visit Note 05/12 Visit Start Time 13:48 Visit Stop Time 14:28 Visit Number 23 Number of HAND PACKAGER Visits 0 PT-OP-B Current Condition Start: 11/22/22 15:01 Freq: Status: Active Protocol: Document 12/06/22 07:30 [facility] (Rec: 12/06/22 10:41 [facility] [id number]) Current Condition History of Current Condition Onset Date 6 months ago Current Complaints L TMJ History of Current Condition Pt has been seeing a DO that does craniosacral and it was helping but she hit a wall that was helping the pain any more. She went to [facility] and was considering mm relaxors. It was in L jaw and radiated down mandible and into teeth. It would also radiate down L side of neck and upper cervical of R neck. For months it was constant, and 2 days ago she went to this lady recommended by a friend. She did craniosacral and some myofascial release along the jaw and they made a good amount of progress in the session. At this moment, she feels it but it is no longer screaming at her. She had cataract surgery on L eye and right after that she had pain after. She is having trouble with the eye. She was supposed to not have to wear glasses and still has to and there is just a tug to her L lat eye and there is a viscous watering. L eye is also painful. It feels sore. Pain inc w/eating and had to do soft foods only. She eats mostly on R. The electric toothbrush hurts teeth. sometimes just moving around irritates it. It is now in the lower jaw. The vibration of talking irritates that. Denies DOMINGUEZ. Typically no dizziness or lightheadeness but the other day. She just got up out of bed and was dizzy and was careful and it went away quickly. Has not had it sense. Treatment Goals Patient/Caregiver Goals dec jaw pain, eat w/o pain, no constant pain PT-OP-C Subjective Start: 11/22/22 15:01 Freq: Status: Active Protocol: Document 06/20/23 13:08 [facility] (Rec: 06/20/23 14:33 [facility] [id number]) OP-PT Subjective Patient Comments Patient Comments staying consistant w/opening exercises and resumed her bands on the door. Started to feel jaw pain on L when eating . Pt reports no change w/ finger numbness. PT-OP-F Manual Assessment Start: 11/22/22 15:01 Freq: Status: Active Protocol: Document 12/06/22 07:30 [facility] (Rec: 12/06/22 10:41 [facility] [id number]) Manual Assessments Soft Tissue Assessment Soft Tissue Mobility Assessment tightness on L masseter, temporalis, B digastric & pterygoids, L>R scalenes, B SCM, L>R cervical paraspinals Joint Mobility Assessment Joint Mobility Assessment L 1st rib elevated, L shear of C1 and 2 and R rot PT-OP-K Range of Motion Start: 11/22/22 15:01 Freq: Status: Active Protocol: Document 06/07/23 16:52 [facility] (Rec: 06/07/23 18:10 [facility] [id number]) TMJ Range of Motion Jaw Openning Jaw Openning (mm) 34 PT-OP-L Special Tests Start: 11/22/22 15:01 Freq: Status: Active Protocol: Document 12/06/22 07:30 [facility] (Rec: 12/06/22 10:41 [facility] [id number]) Special Tests Cervical Spine Special Tests Traction Test Results neg arterial screening Comments carotid and heart ausciltation : WNL Spurling's Test Test Results neg Other Special Tests Special Tests BP:120/73 PT-OP-Q Treatments Start: 11/22/22 15:01 Freq: Status: Active Protocol: Document 06/20/23 13:08 [facility] (Rec: 06/20/23 14:33 [facility] [id number]) Manual Therapy Treatment Soft Tissue Mobilization cervical Body Location L>R SO & SCM, Scalenes Mobilization Type Rolling,Sustained Pressure Intensity/Depth Moderate Body Position Hooklying Comments w/gentle ulnar n glide jaw Mobilization Type Myofascial Release,Rolling, Sustained Pressure Intensity/Depth Moderate Comments Temporalis, masseter L>R , digastric, suprahyoids Joint Mobilizations SC Joint caudal L FM ribs Comments caudal 1 FM L ribs 5 and 6 L SB FM cervical Comments Transverse R C5 UPA L c5 and 6 fM PT-OP-R Modalities Start: 11/22/22 15:01 Freq: Status: Active Protocol: Document 03/14/23 14:38 [facility] (Rec: 03/14/23 15:20 [facility] [id number]) Hot Pack/Cold Pack Treatment Cold Pack Location neck & jaw Patient Position Hooklying Treatment Duration (minutes) 10 PT-OP-T Assessment and Plan Start: 11/22/22 15:01 Freq: Status: Active Protocol: Document 06/20/23 13:08 [facility] (Rec: 06/20/23 14:33 [facility] [id number]) Physical Therapy Assessment Goals pain Short Term Goal (STG) Pt will report no constant jaw pain throughout day. 01/09-still constant but less pain level 02/22-wouldn't call it a constant pain but discomfort; do not feel the teeth as much anymore STG Duration achieved 04/24 Wildlife Refuge Manager Goal (LTG) Pt will be able to talk and eat w/o inc jaw pain. 01/09-still constant but less pain level 02/22-still inc pain 04/24-pain level is low; eats everything now but it gets mildly sore 06/06-talking doesn't seem to irritate it but eating does LTG Duration 07/18 cervical ROM Short Term Goal (STG) Pt will have full cervical ROM w/o inc pain in order to allow pt to do typical ADLs w/ o inc pain. 01/09-improved in most planes. STG Duration achieved 02/22 Halfway Goal (LTG) Pt will report dec neck tension that radiates to jaw and down arm w/UE use LTG Duration 07/18 jaw opening Short Term Goal (STG) Pt will be able to open jaw at least 33 mm 01/09-26 mm today STG Duration achieved 02/22 Halfway Goal (LTG) Pt will be able to open jaw at least 40 mm w/o pain and w/o deviation. 04/24-34mm 06/06-no change LTG Duration 07/18 Assessment Summary Assessment Pt had improved scap dep after manual treatment today. She had improved cervical SB after manual treatment. Still notable n tensiion on L side. Soem lightheadedness when first sitting up upon standing up but improves w/water and sitting and notes improved after sitting and 2 cups of water. BP was 185/80 which is high for pt but cuff didn't read first time it pumped up and pumpe dup a 2nd time which could affect pressure reading . Encouraged to go to doctor if feels off at all later today. Physical Therapy Plan Frequency and Duration Frequency of Treatment 1-2x/wk Duration of treatment (weeks) 6 Plan of Care Start Date 06/07/23 Plan of Care End Date 07/19/23 Next Visit Focus/Plan Next Note Type Treatment Note Next Visit Plan resume jaw exercises, review foam roll as needed, n glide manual for uppper thoracic and ribs
--- NOTE | 2023-06-26 13:51 | PT.OTN ---
Current Diagnoses Arthralgia of bilateral temporomandibular joint (06/26/23) Cervicalgia (06/26/23) Abnormal posture (06/26/23) Physical Therapy Treatment Note PT-OP-A Visit Information Start: 11/22/22 15:01 Freq: Status: Active Protocol: Document 06/26/23 13:01 [facility] (Rec: 06/26/23 13:50 [facility] [id number]) Out-Patient Physical Therapy Visit Information Visit Information Visit Type Treatment Note Visit Note 06/12 Visit Start Time 13:03 Visit Stop Time 13:43 Visit Number 24 Number of OPEN CLAIMS REPRESENTATIVE Visits 0 PT-OP-B Current Condition Start: 11/22/22 15:01 Freq: Status: Active Protocol: Document 12/06/22 07:30 [facility] (Rec: 12/06/22 10:41 [facility] [id number]) Current Condition History of Current Condition Onset Date 6 months ago Current Complaints L TMJ History of Current Condition Pt has been seeing a DO that does craniosacral and it was helping but she hit a wall that was helping the pain any more. She went to [facility] and was considering mm relaxors. It was in L jaw and radiated down mandible and into teeth. It would also radiate down L side of neck and upper cervical of R neck. For months it was constant, and 2 days ago she went to this lady recommended by a friend. She did craniosacral and some myofascial release along the jaw and they made a good amount of progress in the session. At this moment, she feels it but it is no longer screaming at her. She had cataract surgery on L eye and right after that she had pain after. She is having trouble with the eye. She was supposed to not have to wear glasses and still has to and there is just a tug to her L lat eye and there is a viscous watering. L eye is also painful. It feels sore. Pain inc w/eating and had to do soft foods only. She eats mostly on R. The electric toothbrush hurts teeth. sometimes just moving around irritates it. It is now in the lower jaw. The vibration of talking irritates that. Denies DOMINGUEZ. Typically no dizziness or lightheadeness but the other day. She just got up out of bed and was dizzy and was careful and it went away quickly. Has not had it sense. Treatment Goals Patient/Caregiver Goals dec jaw pain, eat w/o pain, no constant pain PT-OP-C Subjective Start: 11/22/22 15:01 Freq: Status: Active Protocol: Document 06/26/23 13:01 [facility] (Rec: 06/26/23 13:50 [facility] [id number]) OP-PT Subjective Patient Comments Patient Comments When she woke up this AM, she felt like her whole chest was expanding and when she got up she felt like she noticed her posture is opening. Feels like something let go. She thinks pinky is better at rest . Day to day not noticing jaw much, except when she eats something hard like a carrot. Its not every time though. Lightheadness resolved after last session. PT-OP-F Manual Assessment Start: 11/22/22 15:01 Freq: Status: Active Protocol: Document 12/06/22 07:30 [facility] (Rec: 12/06/22 10:41 [facility] [id number]) Manual Assessments Soft Tissue Assessment Soft Tissue Mobility Assessment tightness on L masseter, temporalis, B digastric & pterygoids, L>R scalenes, B SCM, L>R cervical paraspinals Joint Mobility Assessment Joint Mobility Assessment L 1st rib elevated, L shear of C1 and 2 and R rot PT-OP-K Range of Motion Start: 11/22/22 15:01 Freq: Status: Active Protocol: Document 06/07/23 16:52 [facility] (Rec: 06/07/23 18:10 [facility] [id number]) TMJ Range of Motion Jaw Openning Jaw Openning (mm) 34 PT-OP-L Special Tests Start: 11/22/22 15:01 Freq: Status: Active Protocol: Document 12/06/22 07:30 [facility] (Rec: 12/06/22 10:41 [facility] [id number]) Special Tests Cervical Spine Special Tests Traction Test Results neg arterial screening Comments carotid and heart ausciltation : WNL Spurling's Test Test Results neg Other Special Tests Special Tests BP:120/73 PT-OP-Q Treatments Start: 11/22/22 15:01 Freq: Status: Active Protocol: Document 06/26/23 13:01 [facility] (Rec: 06/26/23 13:50 [facility] [id number]) Therapeutic Exercises Sidelying Exercises open book Sidelying Exercise Name 1. open book 2. arm circles cw /ccw Side bilateral Reps/Minutes 8 min Manual Therapy Treatment Soft Tissue Mobilization jaw Mobilization Type Myofascial Release,Rolling, Sustained Pressure Intensity/Depth Moderate Comments Temporalis, masseter L>R , digastric Joint Mobilizations cranium Joint eye movements, ulnar n glide, jaw opening Comments 1. post glide occiput 2.sphenobasilar opening L>R 3. inf glide occiput B 4. frontal ant L>R 5. inf and post rot L temporal bone 6.zygomatic bone external rotation L 7. sphenoid R to L FM PT-OP-R Modalities Start: 11/22/22 15:01 Freq: Status: Active Protocol: Document 03/14/23 14:38 [facility] (Rec: 03/14/23 15:20 [facility] [id number]) Hot Pack/Cold Pack Treatment Cold Pack Location neck & jaw Patient Position Hooklying Treatment Duration (minutes) 10 PT-OP-T Assessment and Plan Start: 11/22/22 15:01 Freq: Status: Active Protocol: Document 06/26/23 13:01 [facility] (Rec: 06/26/23 13:50 [facility] [id number]) Physical Therapy Assessment Goals pain Short Term Goal (STG) Pt will report no constant jaw pain throughout day. 01/09-still constant but less pain level 02/22-wouldn't call it a constant pain but discomfort; do not feel the teeth as much anymore STG Duration achieved 04/24 Site Head Goal (LTG) Pt will be able to talk and eat w/o inc jaw pain. 01/09-still constant but less pain level 02/22-still inc pain 04/24-pain level is low; eats everything now but it gets mildly sore 06/06-talking doesn't seem to irritate it but eating does LTG Duration 07/18 cervical ROM Short Term Goal (STG) Pt will have full cervical ROM w/o inc pain in order to allow pt to do typical ADLs w/ o inc pain. 01/09-improved in most planes. STG Duration achieved 02/22 [facility] Goal (LTG) Pt will report dec neck tension that radiates to jaw and down arm w/UE use LTG Duration 07/18 jaw opening Short Term Goal (STG) Pt will be able to open jaw at least 33 mm 01/09-26 mm today STG Duration achieved 02/22 [facility] Goal (LTG) Pt will be able to open jaw at least 40 mm w/o pain and w/o deviation. 04/24-34mm 06/06-no change LTG Duration 07/18 Assessment Summary Assessment pt felt release w/manual work to craniuma nd had dec tension w/ulnar n glide on L by the end. [place] more release w/open book/cirlces to improve opening and postural mobility Physical Therapy Plan Frequency and Duration Frequency of Treatment 1-2x/wk Duration of treatment (weeks) 6 Plan of Care Start Date 06/07/23 Plan of Care End Date 07/19/23 Next Visit Focus/Plan Next Note Type Discharge Summary Next Visit Plan prep pt for DC
--- NOTE | 2023-07-03 15:55 | PT.OTN ---
Current Diagnoses Arthralgia of bilateral temporomandibular joint (07/03/23) Cervicalgia (07/03/23) Abnormal posture (07/03/23) Physical Therapy Treatment Note PT-OP-A Visit Information Start: 11/22/22 15:01 Freq: Status: Active Protocol: Document 07/03/23 13:51 [facility] (Rec: 07/03/23 15:55 [facility] [id number]) Out-Patient Physical Therapy Visit Information Visit Information Visit Type Discharge Summary Visit Start Time 13:52 Visit Stop Time 14:30 Visit Number 25 Number of BED MANAGER Visits 0 PT-OP-B Current Condition Start: 11/22/22 15:01 Freq: Status: Active Protocol: Document 12/06/22 07:30 [facility] (Rec: 12/06/22 10:41 [facility] [id number]) Current Condition History of Current Condition Onset Date 6 months ago Current Complaints L TMJ History of Current Condition Pt has been seeing a DO that does craniosacral and it was helping but she hit a wall that was helping the pain any more. She went to [facility] and was considering mm relaxors. It was in L jaw and radiated down mandible and into teeth. It would also radiate down L side of neck and upper cervical of R neck. For months it was constant, and 2 days ago she went to this lady recommended by a friend. She did craniosacral and some myofascial release along the jaw and they made a good amount of progress in the session. At this moment, she feels it but it is no longer screaming at her. She had cataract surgery on L eye and right after that she had pain after. She is having trouble with the eye. She was supposed to not have to wear glasses and still has to and there is just a tug to her L lat eye and there is a viscous watering. L eye is also painful. It feels sore. Pain inc w/eating and had to do soft foods only. She eats mostly on R. The electric toothbrush hurts teeth. sometimes just moving around irritates it. It is now in the lower jaw. The vibration of talking irritates that. Denies DOMINGUEZ. Typically no dizziness or lightheadeness but the other day. She just got up out of bed and was dizzy and was careful and it went away quickly. Has not had it sense. Treatment Goals Patient/Caregiver Goals dec jaw pain, eat w/o pain, no constant pain PT-OP-C Subjective Start: 11/22/22 15:01 Freq: Status: Active Protocol: Document 07/03/23 13:51 [facility] (Rec: 07/03/23 15:55 [facility] [id number]) OP-PT Subjective Patient Comments Patient Comments Pt reports she has been busy this weekend. Her tingling in her fingers has gone down. L lat shoulder is a little sore. Jaw did okay this weekend and was able to eat what she wanted . able to eat popcorn PT-OP-F Manual Assessment Start: 11/22/22 15:01 Freq: Status: Active Protocol: Document 12/06/22 07:30 [facility]06[facility]22 10[id number] Assessments Soft Tissue Assessment Soft Tissue Mobility Assessment tightness on L masseter, temporalis, B digastric & pterygoids, L>R scalenes, B SCM, L>R cervical paraspinals Joint Mobility Assessment Joint Mobility Assessment L 1st rib elevated, L shear of C1 and 2 and R rot PT-OP-K Range of Motion Start: 11/22/22 15:01 Freq: Status: Active Protocol: Document 06/07/23 16:52 [facility] (Rec: 06/07/23 18:10 [id number] TMJ Range of Motion Jaw Openning Jaw Openning (mm) 34 PT-OP-L Special Tests Start: 11/22/22 15:01 Freq: Status: Active Protocol: Document 12/06/22 07:30 [facility] (Rec: 12/06/22 10:41 [facility] [id number]) Special Tests Cervical Spine Special Tests Traction Test Results neg arterial screening Comments carotid and heart ausciltation : WNL Spurling's Test Test Results neg Other Special Tests Special Tests BP:120/73 PT-OP-Q Treatments Start: 11/22/22 15:01 Freq: Status: Active Protocol: Document 07/03/23 13:51 [facility] (Rec: 07/03/23 15:55 [facility] [id number]) Manual Therapy Treatment Soft Tissue Mobilization cervical Body Location L>R SO & SCM, Scalenes Mobilization Type Rolling,Sustained Pressure Intensity/Depth Moderate Body Position Hooklying Comments w/gentle ulnar n glide jaw Mobilization Type Myofascial Release,Rolling, Sustained Pressure Intensity/Depth Moderate Comments Temporalis, masseter L>R , digastric, med ptyergoid Joint Mobilizations cervical Comments transverse R C1 Self-Care/Home Management Treatment Education Other Education 8 min: discussion of exercises and cont compliance w/work on posture especially when at work station. verbal review of exercises. discussed pelvic floor and TMJ relation and how that may further help relief PT-OP-R Modalities Start: 11/22/22 15:01 Freq: Status: Active Protocol: Document 03/14/23 14:38 [facility] (Rec: 03/14/23 15:20 [facility] [id number]) Hot Pack/Cold Pack Treatment Cold Pack Location neck & jaw Patient Position Hooklying Treatment Duration (minutes) 10 PT-OP-T Assessment and Plan Start: 11/22/22 15:01 Freq: Status: Active Protocol: Document 07/03/23 13:51 [facility] (Rec: 07/03/23 15:55 [facility] [id number]) Physical Therapy Assessment Goals pain Short Term Goal (STG) Pt will report no constant jaw pain throughout day. 01/09-still constant but less pain level 02/22-wouldn't call it a constant pain but discomfort; do not feel the teeth as much anymore STG Duration achieved 04/24 Orthotic/Prosthetic Clinician Goal (LTG) Pt will be able to talk and eat w/o inc jaw pain. 01/09-still constant but less pain level 02/22-still inc pain 04/24-pain level is low; eats everything now but it gets mildly sore 06/06-talking doesn't seem to irritate it but eating does LTG Duration achieved 07/02 cervical ROM Short Term Goal (STG) Pt will have full cervical ROM w/o inc pain in order to allow pt to do typical ADLs w/ o inc pain. 01/09-improved in most planes. STG Duration achieved 02/22 Halfway Goal (LTG) Pt will report dec neck tension that radiates to jaw and down arm w/UE use 07/02-much dec into hand, and into neck and jaw LTG Duration much dec jaw opening Short Term Goal (STG) Pt will be able to open jaw at least 33 mm 01/09-26 mm today STG Duration achieved 02/22 Halfway Goal (LTG) Pt will be able to open jaw at least 40 mm w/o pain and w/o deviation. 04/24-34mm 06/06-no change LTG Duration improved to 38 mm-can open 3 finger width Assessment Summary Assessment Pt has much dec neck and jaw tension and did not have limitation from her jaw this past weekend. Seh has dec tingling down into pinky now also. She is DC to [facility] at this time with still some inc mm tension at L jaw and will focus on jaw and cervico/ thoracic mobility exercises. Physical Therapy Plan Discharge Physical Therapy Discharge Comments goals mostly met
== END 2023-07-05 12:44 | disposition home or self-care (01) ==
LOC: PHYS 13:45
PROVIDERS: Family Provider Family Medicine; PCP Family Medicine; Referring Provider Family Medicine; Visit Provider Family Medicine
DX: M26.623 Arthralgia of bilateral temporomandibular joint (principal); M54.2 Cervicalgia; R29.3 Abnormal posture
CPT/HCPCS: 97110; 97140; 97162; 97530; 97535

== ENCOUNTER → 2023-11-06 12:38 | Outpatient (CLI) | payer MEDICARE, OTHER, SELFPAY ==
--- NOTE | 2023-11-06 12:42 | DI.RAD.S_ITS ---
PROCEDURE: XR FOOT LT MIN 3V INDICATIONS: FOOT PAIN TECHNIQUE: 3 views of the foot were acquired. COMPARISON: None. FINDINGS: Diffuse osseous demineralization. No acute fracture or dislocation, specifically of the 2nd digit. The joint spaces are preserved. The Lisfranc interval is preserved on the nonweightbearing view. IMPRESSION: No acute fracture or dislocation . Dictated by: Naveed Stein M.D. on 11/06/2023 at 15:32 Approved by: Naveed Stein M.D. on 11/06/2023 at 15:35
== END ==
PROVIDERS: Family Provider Family Medicine; PCP Family Medicine; Referring Provider Family Medicine; Visit Provider Family Medicine
DX: M79.672 Pain in left foot (principal)
CPT/HCPCS: 73630

== ENCOUNTER → 2025-02-07 12:06 | Outpatient (CLI) | payer MEDICARE, OTHER, SELFPAY ==
[2025-02-07 13:11] LABS: COVID-19 CEPHEID 4-PLEX PCR Negative (Negative); Influenza A - CEPHEID Flu A NEGATIVE (NEGATIVE); Influenza B - CEPHEID Flu B NEGATIVE (NEGATIVE)
== END ==
PROVIDERS: Family Provider Family Medicine; PCP Family Medicine; Visit Provider Registered Nurse
DX: R05.1 Acute cough (principal)
CPT/HCPCS: 87637

== ENCOUNTER → 2025-02-07 12:18 | Outpatient (CLI) | payer MEDICARE, OTHER, SELFPAY ==
--- NOTE | 2025-02-07 12:20 | DI.RAD.S_ITS ---
PROCEDURE: XR CHEST 2V INDICATIONS: Shortness of breath TECHNIQUE: 2 views of the chest were acquired. COMPARISON: None. FINDINGS: Surgical changes and devices: None. Lungs and pleura: Lungs are clear. No pleural effusions or pneumothorax. Mediastinum: Mediastinal contours are normal. Heart size is normal. Bones and chest wall: No suspicious bony abnormalities. Soft tissues appear unremarkable. Tendon anchors overlie the right humeral head. IMPRESSION: No acute pulmonary process. Dictated by: Ashely Restrepo M.D. on 02/07/2025 at 12:41 Approved by: Ashely Restrepo M.D. on 02/07/2025 at 12:41
== END ==
LOC: RAD 12:19
PROVIDERS: Family Provider Family Medicine; PCP Family Medicine; Referring Provider Registered Nurse; Visit Provider Registered Nurse
DX: R06.02 Shortness of breath (principal); R05.1 Acute cough
CPT/HCPCS: 71046; 87637